=== PATIENT | female | born 1955 | race Caucasian/White ===

== ENCOUNTER → 2016-11-19 | Outpatient (CLI) | payer OTHER ==
[2016-11-19 08:52] LABS: Basophils % (A) 1 %; CH 31.8; CHCM 33.5; Eosinophils # (A) 0.3 k/uL (0-0.7); Eosinophils % (A) 5 %; HCT 42.1 % (34.0-46.0); HDW 2.38; HGB 14.7 gm/dL (11.4-16.0); Luc # (Auto) 0.15; Luc % (Auto) 2; Lymphocytes # (A) 2.7 k/uL (1.0-4.8); Lymphocytes % (A) 39 %; MCH 33.4 pg (25.0-35.0); MCV 95.3 fL (80.0-100.0); Mean Platelet Volume 8.9; Monocytes # (A) 0.5 k/uL (0-1.0); Monocytes % (A) 7 %; Neutrophils # (A) 3.3 k/uL (1.3-7.7); Neutrophils % (A) 47 %; RBC 4.41 m/uL (3.80-5.40); WBC (Perox) 6.92
[2016-11-19 09:02] LABS: INR 0.9 (<1.1); Partial Thromboplastin Time 22.7 sec (22.0-30.0); Prothrombin Time 9.5 sec (9.0-12.0)
[2016-11-19 09:12] LABS: ALT 28 U/L (9-52); AST 24 U/L (14-36); Alkaline Phosphatase 87 U/L (38-126); Anion Gap 9 mmol/L; Blood Urea Nitrogen 11 mg/dL (7-17); Calcium 9.4 mg/dL (8.4-10.2); Carbon Dioxide 26 mmol/L (22-30); Chloride 108 mmol/L (98-107); Cholesterol 226 mg/dL (<200); Creatine Kinase 85 U/L (30-135); Glucose 94 mg/dL (74-99); HDL Cholesterol 69 mg/dL (40-60); Non-African American GFR(MDRD) 60 (>60 ml/min/1.73 sqM); Potassium 4.7 mmol/L (3.5-5.1); Sodium 143 mmol/L (137-145); Total Bilirubin 0.9 mg/dL (0.2-1.3); Triglycerides 146 mg/dL (<150)
[2016-11-19 09:59] LABS: Hepatitis C Virus IgG Ab Negative (Negative); Hepatitis C Virus IgG Index 0.01
[2016-11-19 10:24] LABS: Erythrocyte Sedimentation Rate 8 mm/hr (0-20)
[2016-11-19 11:24] LABS: C Reactive Protein 11.7 mg/L (<10.0)
[2016-11-19 12:46] LABS: Hemoglobin A1C 5.5 % (4.2-6.1)
--- NOTE | 2016-11-23 07:30 | MM ---
Reason for exam: screening (asymptomatic). Last mammogram was performed 6 years ago. History: Patient is postmenopausal. Family history of breast cancer in grandmother. Took hormonal contraceptives for 6 years. Physical Findings: A clinical breast exam by your physician is recommended on an annual basis and results should be correlated with mammographic findings. MG Screening Mammo w CAD Bilateral CC and MLO view(s) were taken. Prior study comparison: November 28, 2010, bilateral digital screening mammo w/CAD. February 08, 2009, bilateral digital screening mammogram. The breast tissue is heterogeneously dense. This may lower the sensitivity of mammography. Asymmetric density in the right breast just lateral to the retroareolar plane appears more defined. ASSESSMENT: Incomplete: need additional imaging evaluation, BI-RAD 0 RECOMMENDATION: Special view mammogram of the right breast. If lesion persists on supplemental views, image directed ultrasound is recommended. [facility] will attempt to contact patient to return for supplemental views and ultrasound if indicated.
== END | disposition home or self-care (01) ==
LOC: RADMAMWWP 08:30
PROVIDERS: ATTEND Internal Medicine
DX: Z12.31 Encounter for screening mammogram for malignant neoplasm of breast (principal); Z00.00 Encounter for general adult medical examination without abnormal findings; R92.2 Inconclusive mammogram; D64.9 Anemia, unspecified; E11.9 Type 2 diabetes mellitus without complications; E78.5 Hyperlipidemia, unspecified; I10 Essential (primary) hypertension; D68.9 Coagulation defect, unspecified
CPT/HCPCS: 86803; 85379; 84439; 80061; 80053; 85652; 83036; 82550; 84443; 85025; 85610; 85730; 86140; 82306; G0202

== ENCOUNTER → 2016-12-02 | Outpatient (CLI) | payer OTHER ==
--- NOTE | 2016-12-02 09:59 | MM ---
Reason for exam: additional evaluation requested from abnormal screening. Last mammogram was performed less than 1 month ago. History: Patient is postmenopausal. Family history of breast cancer in maternal grandmother at age 68. Took hormonal contraceptives for 6 years beginning at age 19. Physical Findings: Nurse did not find any significant physical abnormalities on exam. MG Work Up Mamm w CAD RT LM, CC, CCRL, and spot compression CC view(s) were taken of the right breast. Prior study comparison: November 19, 2016, bilateral MG screening mammo w CAD. November 28, 2010, bilateral digital screening mammo w/CAD. There is no discrete abnormality including area of concern. These results were verbally communicated with the patient and result sheet given to the patient on 12/02/16. ASSESSMENT: Negative, BI-RAD 1 RECOMMENDATION: Return to routine screening mammogram schedule for both breasts.
== END | disposition home or self-care (01) ==
LOC: RADMAMWWP 08:53
PROVIDERS: ATTEND Internal Medicine
DX: R92.8 Other abnormal and inconclusive findings on diagnostic imaging of breast (principal)

== ENCOUNTER → 2016-12-10 | Outpatient (CLI) | payer OTHER ==
--- NOTE | 2016-12-10 10:29 | US ---
EXAMINATION TYPE: US carotid duplex BILAT DATE OF EXAM: 12/10/2016 COMPARISON: NONE CLINICAL HISTORY: I65.2 STENOSIS OF CAROTID ARTERY. bruit EXAM MEASUREMENTS: RIGHT: Peak Systolic Velocity (PSV) cm/sec ----- Right CCA: 105.5 ----- Right ICA: 84.6 ----- Right ECA: 137.8 ICA/CCA ratio: 0.8 RIGHT: End Diastole cm/sec ----- Right CCA: 27.0 ----- Right ICA: 17.7 ----- Right ECA: 17.5 LEFT: Peak Systolic Velocity (PSV) cm/sec ----- Left CCA: 75.2 ----- Left ICA: 93.1 ----- Left ECA: 61.6 ICA/CCA ratio: 1.2 LEFT: End Diastole cm/sec ----- Left CCA: 15.7 ----- Left ICA: 21.9 ----- Left ECA: 0.0 VERTEBRALS (direction of flow): Right Vertebral: Antegrade Left Vertebral: Antegrade 1. Bilateral wall thickening. 2. No elevated velocities in either ICA. 3. No significant stenosis. IMPRESSION: Minimal atheromatous plaquing of the bilateral carotid bulbs and common carotid arteries with no evidence of hemodynamically significant stenosis.
== END | disposition home or self-care (01) ==
LOC: RADUSWWP 09:22
PROVIDERS: ATTEND Internal Medicine
DX: I65.23 Occlusion and stenosis of bilateral carotid arteries (principal); Z88.6 Allergy status to analgesic agent
CPT/HCPCS: 93880

== ENCOUNTER → 2017-05-20 | Outpatient (CLI) | payer BC, OTHER ==
[2017-05-20 12:45] LABS: ALT 34 U/L (9-52); AST 21 U/L (14-36); Cholesterol 170 mg/dL (<200); Creatine Kinase 78 U/L (30-135); HDL Cholesterol 72 mg/dL (40-60); LDL Cholesterol,Calculated 80 mg/dL (0-99); Triglycerides 90 mg/dL (<150)
== END | disposition home or self-care (01) ==
LOC: LABWHC1 11:51
PROVIDERS: ATTEND Internal Medicine
DX: E78.5 Hyperlipidemia, unspecified (principal); T50.905A Adverse effect of unspecified drugs, medicaments and biological substances, initial encounter
CPT/HCPCS: 36415; 80061; 82550; 84450; 84460; 85652

== ENCOUNTER → 2017-11-25 | Outpatient (CLI) | payer BC ==
[2017-11-25 10:43] LABS: Basophils % (A) 1 %; Eosinophils # (A) 0.3 k/uL (0-0.7); Eosinophils % (A) 6 %; HCT 41.1 % (34.0-46.0); HGB 13.6 gm/dL (11.4-16.0); Lymphocytes # (A) 1.9 k/uL (1.0-4.8); Lymphocytes % (A) 34 %; MCH 32.2 pg (25.0-35.0); MCHC 33.2 g/dL (31.0-37.0); MCV 96.9 fL (80.0-100.0); Mean Platelet Volume 7.4; Monocytes # (A) 0.4 k/uL (0-1.0); Monocytes % (A) 7 %; Neutrophils # (A) 2.9 k/uL (1.3-7.7); Neutrophils % (A) 51 %; Platelet Count 221 k/uL (150-450); RBC 4.24 m/uL (3.80-5.40); RDW 13.2 % (11.5-15.5); WBC 5.6 k/uL (3.8-10.6)
[2017-11-25 11:03] LABS: ALT 33 U/L (9-52); AST 22 U/L (14-36); Albumin 4.1 g/dL (3.5-5.0); Alkaline Phosphatase 87 U/L (38-126); Anion Gap 5 mmol/L; Blood Urea Nitrogen 11 mg/dL (7-17); C Reactive Protein 8.3 mg/L (<10.0); Calcium 9.3 mg/dL (8.4-10.2); Carbon Dioxide 28 mmol/L (22-30); Chloride 107 mmol/L (98-107); Cholesterol 154 mg/dL (<200); Creatine Kinase 83 U/L (30-135); Glucose 96 mg/dL (74-99); HDL Cholesterol 63 mg/dL (40-60); LDL Cholesterol,Calculated 67 mg/dL (0-99); Potassium 4.7 mmol/L (3.5-5.1); Sodium 140 mmol/L (137-145); Total Bilirubin 0.6 mg/dL (0.2-1.3); Total Protein 6.3 g/dL (6.3-8.2); Triglycerides 119 mg/dL (<150)
[2017-11-25 11:15] LABS: T4, Free (Free Thyroxine) 1.06 ng/dL (0.78-2.19)
[2017-11-25 14:10] LABS: Erythrocyte Sedimentation Rate 8 mm/hr (0-20)
[2017-11-25 17:22] LABS: Hemoglobin A1C 5.4 % (4.0-6.0)
== END | disposition home or self-care (01) ==
LOC: LABWHC1 10:19
PROVIDERS: ATTEND Internal Medicine
DX: E78.5 Hyperlipidemia, unspecified (principal); I10 Essential (primary) hypertension; E03.9 Hypothyroidism, unspecified; E66.9 Obesity, unspecified; E87.8 Other disorders of electrolyte and fluid balance, not elsewhere classified; E55.9 Vitamin D deficiency, unspecified; R73.9 Hyperglycemia, unspecified
CPT/HCPCS: 36415; 80053; 80061; 82306; 82550; 83036; 84439; 84443; 85025; 85652; 86140

== ENCOUNTER → 2018-01-25 | Outpatient (CLI) | payer BC ==
--- NOTE | 2018-01-26 15:20 | ECHOF ---
Referral Reason:I25.2 Old myocardial infarct MEASUREMENTS -------- HEIGHT: 175.3 cm WEIGHT: 108.9 kg BP: RVIDd: 3.0 cm (< 3.3) IVSd: 1.1 cm (0.6 - 1.1) LVIDd: 3.9 cm (3.9 - 5.3) LVPWd: 1.0 cm (0.6 - 1.1) IVSs: 1.3 cm LVIDs: 2.3 cm LVPWs: 1.3 cm LAESV Index (A-L): 25.15 ml/m Ao Diam: 3.5 cm (2.0 - 3.7) AV Cusp: 2.2 cm (1.5 - 2.6) LA Diam: 3.4 cm (2.7 - 3.8) MV EXCURSION: 22.560 mm (> 18.000) MV EF SLOPE: 88 mm/s (70 - 150) EPSS: 0.5 cm MV E Saji: 0.99 m/s MV DecT: 193 ms MV A Saji: 0.81 m/s MV E/A Ratio: 1.23 RAP: 5.00 mmHg RVSP: 31.05 mmHg FINDINGS -------- Sinus rhythm. This was a technically adequate study. The left ventricular size is normal. There is borderline concentric left ventricular hypertrophy. Overall left ventricular systolic function is normal with, an EF between 55 - 60 %. The right ventricle is normal in size and function. Normal LA size by volume 22+/-6 ml/m2. RA appears enlarged. Aortic valve is trileaflet and is mildly thickened. Trace amount of aortic regurgitation. There is no evidence of aortic stenosis. The mitral valve leaflets are mildly thickened. There is trace to mild mitral regurgitation. Trace tricuspid regurgitation present. Right ventricular systolic pressure is normal at < 35 mmHg. There is no evidence of pulmonary hypertension. The pulmonic valve was not well visualized. The aortic root size is normal. Normal inferior vena cava with normal inspiratory collapse consistent with estimated right atrial pre ssure of 5 mmHg. There is no pericardial effusion. CONCLUSIONS -------- 1. Sinus rhythm. 2. This was a technically adequate study. 3. The left ventricular size is normal. 4. There is borderline concentric left ventricular hypertrophy. 5. Overall left ventricular systolic function is normal with, an EF between 55 - 60 %. 6. Normal LA size by volume 22+/-6 ml/m2. 7. RA appears enlarged. 8. Aortic valve is trileaflet and is mildly thickened. 9. Trace amount of aortic regurgitation. 10. The mitral valve leaflets are mildly thickened. 11. There is trace to mild mitral regurgitation. 12. Trace tricuspid regurgitation present. 13. Right ventricular systolic pressure is normal at < 35 mmHg. 14. There is no evidence of pulmonary hypertension. 15. The pulmonic valve was not well visualized. 16. The aortic root size is normal. 17. There is no pericardial effusion. COUNTY SURVEYOR: Sami Calderon RDCS
== END ==
LOC: RADECHMAIN 12:38
PROVIDERS: ATTEND Internal Medicine
DX: I51.7 Cardiomegaly (principal); I34.8 Other nonrheumatic mitral valve disorders; I35.8 Other nonrheumatic aortic valve disorders; I34.0 Nonrheumatic mitral (valve) insufficiency
CPT/HCPCS: 93306

== ENCOUNTER → 2019-06-09 | Outpatient (CLI) | payer BC ==
--- NOTE | 2019-06-09 09:42 | CT ---
EXAMINATION TYPE: CT soft tissue neck w con DATE OF EXAM: 06/09/2019 COMPARISON: None HISTORY: Right anterior neck mass CT DLP: 531 mGycm CONTRAST: CT scan of the neck is performed with IV Contrast, patient injected with 100 mL of Isovue 300. Contrast enhanced CT of the neck was performed from the skull base through the lung apices. Markers p laced over the right neck at the site of clinical concern. At the site of clinical concern there is no evidence for solid or cystic mass. AIRWAY: The supraglottic, glottic, and subglottic portions of the airway appear patent and free of mass. SALIVARY GLANDS: The submandibular and parotid glands are free of mass or inflammatory process. THYROID GLAND: No nodules or masses seen. LYMPH NODES: No adenopathy seen greater than 1cm. LUNG APICES: No nodule or mass is seen. OTHER: Vascular structures are patent. No significant degenerative change of the cervical spine. N o abscess seen. IMPRESSION: No distinct abnormality appreciated.
== END | disposition home or self-care (01) ==
LOC: RADCTMAIN 08:52
PROVIDERS: ATTEND Otolaryngology
DX: R68.89 Other general symptoms and signs (principal)
CPT/HCPCS: 70491; Q9967

== ENCOUNTER 2019-07-20 04:54 | Emergency (ER) | payer BC ==
[2019-07-20 05:09] VITALS: TEMP 98
--- NOTE | 2019-07-20 05:30 | ED ---
Fall HPI - General Chief Complaint: Fall Stated Complaint: Back pain Time Seen by Provider: 07/20/19 05:18 Source: patient Mode of arrival: ambulatory - History of Present Illness MD Complaint: fall Onset/Timin -: hour(s) Fall From: down stairs (#) (3) Place Fall Occurred: home Loss of Consciousness: none Prolonged Down Time?: no Symptoms Prior to Fall: none Location: back Severity: moderate Quality: sharp Context: tripped/slipped Associated Symptoms: denies - Related Data Previous Rx's Medication Instructions Recorded Hydrocodone/Acetaminophen [[place] 1 each PO Q6HR PRN #20 tab 07/20/19 5-325] Ibuprofen 800 mg PO TID #20 tablet 07/20/19 Allergies Allergy/AdvReac Type Severity Reaction Status Date / Time fentanyl AdvReac Vomiting Verified 07/20/19 05:09 Review of Systems ROS Statement: Those systems with pertinent positive or pertinent negative responses have been documented in the HPI. ROS Other: All systems not noted in ROS Statement are negative. Constitutional: Denies: fever, chills Respiratory: Denies: cough, dyspnea Cardiovascular: Denies: chest pain, palpitations, edema, syncope Gastrointestinal: Denies: abdominal pain, nausea, vomiting Genitourinary: Denies: dysuria, hematuria Musculoskeletal: Reports: as per HPI, back pain Neurological: Denies: headache, weakness, numbness, paresthesias Hematological/Lymphatic: Denies: easy bleeding Past Medical History Past Medical History: Hypertension Additional Past Medical History / Comment(s): ectopic History of Any Multi-Drug Resistant Organisms: None Reported Past Surgical History: Cholecystectomy, Orthopedic Surgery Additional Past Surgical History / Comment(s): eye surgery Past Psychological History: No Psychological Hx Reported Smoking Status: Never smoker Past Alcohol Use History: None Reported Past Drug Use History: None Reported General Exam General appearance: alert, in no apparent distress Head exam: Present: atraumatic, normocephalic Eye exam: Present: normal appearance Neck exam: Present: full ROM. Absent: tenderness, meningismus Respiratory exam: Present: normal lung sounds bilaterally, chest wall tenderness. Absent: respiratory distress, wheezes, rales, rhonchi, stridor, accessory muscle use Cardiovascular Exam: Present: regular rate, normal rhythm, normal heart sounds. Absent: systolic murmur, diastolic murmur, rubs, gallop GI/Abdominal exam: Present: soft. Absent: distended, tenderness, guarding, rebound, mass Extremities exam: Present: normal inspection, normal capillary refill. Absent: pedal edema, calf tenderness Back exam: Present: normal inspection, paraspinal tenderness. Absent: CVA tenderness (R), CVA tenderness (L), vertebral tenderness Neurological exam: Present: alert, normal gait Skin exam: Present: warm, dry, intact, normal color. Absent: rash Course Vital Signs 07/20/19 07/20/19 05:04 07:46 Temperature 98 F Pulse Rate 75 62 Respiratory 18 17 Rate Blood Pressure 151/92 143/90 O2 Sat by Pulse 98 98 Oximetry Medical Decision Making - Lab Data Lab Results 07/20/19 Range/Units 05:44 Urine Color Yellow Urine Appearance Clear (Clear) Urine pH 5.5 (5.0-8.0) Ur Specific [place] 1.024 (1.001-1.035) Urine Protein Trace H (Negative) Urine Glucose (UA) Negative (Negative) Urine Ketones Negative (Negative) Urine Blood Negative (Negative) Urine Nitrite Negative (Negative) Urine Bilirubin Negative (Negative) Urine Urobilinogen 2.0 (<2.0) mg/dL Ur Leukocyte Esterase Small H (Negative) Urine RBC 1 (0-5) /hpf Urine WBC 4 (0-5) /hpf Ur Squamous Epith Cells 2 (0-4) /hpf Hyaline Casts 6 H (0-2) /lpf Urine Mucus Moderate H (None) /hpf Disposition Clinical Impression: Fall, Rib fractures Disposition: HOME SELF-CARE Condition: Good Instructions (If sedation given, give patient instructions): Rib Fracture (ED), Fall Prevention for Older Adults (ED) Prescriptions: Ibuprofen 800 mg PO TID #20 tablet Hydrocodone/Acetaminophen [[place] 5-325] 1 each PO Q6HR PRN #20 tab PRN Reason: Pain Is patient prescribed a controlled substance at d/c from ED?: No Referrals: Trav Stern MD [Primary Care Provider] - 1-2 days
[2019-07-20 05:51] LABS: Appearance,Urine Clear (Clear); Bilirubin,Urine Negative (Negative); Blood,Urine Negative (Negative); Color,Urine Yellow; Glucose,Urine (UA) Negative (Negative); Hyaline Casts,Urine 6 /lpf (0-2); Ketones,Urine Negative (Negative); Leukocyte Esterase,Urine Small (Negative); Mucus,Urine Moderate /hpf; Nitrite,Urine Negative (Negative); PH, Urine 5.5 (5.0-8.0); Protein,Urine Trace (Negative); RBC,Urine 1 /hpf (0-5); Specific Gravity,Urine 1.024 (1.001-1.035); Squamous Epithelial Cell,Urine 2 /hpf (0-4); WBC,Urine 4 /hpf (0-5)
--- NOTE | 2019-07-20 07:15 | XR ---
EXAMINATION TYPE: XR ribs LT w pa chest xray DATE OF EXAM: 07/20/2019 CLINICAL HISTORY: Fall with left rib pain TECHNIQUE: Single frontal view of the chest is obtained. 2 views of the left ribs were also obtained COMPARISON: None FINDINGS: Linear platelike atelectasis is seen in both lower lungs. Cardiomediastinal silhouette is e nlarged with tortuosity of the descending thoracic aorta. No sizable pneumothorax or pleural effusion seen. No focal consolidation. There are acute, nondisplaced, noncomminuted fractures of the posterio r lateral margins of ribs 5 and 6 on the left that are subtly seen. IMPRESSION: Acute noncomminuted nondisplaced fractures of the posterior lateral margins of ribs 5 and 6 on the left and bibasilar atelectasis.
[2019-07-20 07:47] VITALS: BP 143/90; PULSE 62; RESP 17
== END 2019-07-20 08:23 | disposition home or self-care (01) ==
LOC: EC 04:54
DX: S22.42XA Multiple fractures of ribs, left side, initial encounter for closed fracture (principal); I10 Essential (primary) hypertension; Z88.5 Allergy status to narcotic agent; W10.9XXA Fall (on) (from) unspecified stairs and steps, initial encounter; Y92.009 Unspecified place in unspecified non-institutional (private) residence as the place of occurrence of the external cause
CPT/HCPCS: 81001; 99283

== ENCOUNTER → 2019-11-17 | Outpatient (CLI) | payer MEDICARE, BC ==
--- NOTE | 2019-11-17 11:16 | XR ---
EXAMINATION TYPE: XR Hip Complete LT DATE OF EXAM: 11/17/2019 CLINICAL HISTORY: pain TECHNIQUE: AP and frogleg views of the left hip are obtained. COMPARISON: None. FINDINGS: There is no acute fracture/dislocation evident. The joint space appears within normal li mits. The overlying soft tissue appears unremarkable. IMPRESSION: 1. There is no acute fracture or dislocation.ICD 10 NO FRACTURE, INITIAL EVALUATION
--- NOTE | 2019-11-17 11:18 | XR ---
EXAMINATION TYPE: XR sacroiliac joint comp BILAT DATE OF EXAM: 11/17/2019 COMPARISON: NONE HISTORY: M81.0 Osteoarthritis TECHNIQUE: 3 views SI joints FINDINGS: There are mild vacuum changes noted of the bilateral sacroiliac joints. No evidence for fra cture. No erosive changes seen. IMPRESSION: Bilateral osteoarthritis.
== END | disposition home or self-care (01) ==
LOC: RADXRMAIN 10:47
PROVIDERS: ATTEND Internal Medicine
DX: M47.898 Other spondylosis, sacral and sacrococcygeal region (principal)
CPT/HCPCS: 72202; 73502; 85652

== ENCOUNTER → 2019-11-27 | Outpatient (CLI) | payer MEDICARE, BC ==
--- NOTE | 2019-11-27 11:35 | FL ---
EXAMINATION TYPE: FL barium swallow w video DATE OF EXAM: 11/27/2019 CLINICAL HISTORY: 64-year-old female R13.10, unspecified dysphagia, palpable area along the right latanya e of the neck. TECHNIQUE: Deglutition study is performed utilizing thin liquid barium, honey barium thick pudding, and barium coated cracker. COMPARISON: Correlation CT neck 06/09/2019. Total fluoroscopy time: 39 seconds. Total images: None. Real-time fluoroscopy support was provided to speech pathology. FINDINGS: The oral and pharyngeal phases show satisfactory initiation and propagation with all modalities teste d. Normal mastication is seen with solid modalities tested. There is a single episode of minimal tr ansient penetration with solid consistency. No evidence of any other penetration or aspiration with a ny modality tested. No significant pharyngeal residue was appreciated. IMPRESSION: Single episode of minimal transient penetration with solid consistency. No other penetration or aspir ation seen. The patient's 06/09/2019 CT is reviewed. No discrete abnormality is identified. The palpable area can be followed clinically. If any enlargement is noted, targeted ultrasound or repeat CT scan can be per formed. Please refer to speech therapist notes for further details if necessary.
== END | disposition home or self-care (01) ==
LOC: RADFLMAIN 10:43
PROVIDERS: ATTEND Internal Medicine
DX: R13.10 Dysphagia, unspecified (principal); Z88.6 Allergy status to analgesic agent
CPT/HCPCS: 74230

== ENCOUNTER → 2019-12-05 | Outpatient (CLI) | payer MEDICARE, BC ==
--- NOTE | 2019-12-07 15:59 | US ---
EXAMINATION TYPE: US thyroid st tissue head/neck DATE OF EXAM: 12/05/2019 COMPARISON: NONE CLINICAL HISTORY: R22.1 Localized swelling, mass and lump, neck. GLAND SIZE: The right lobe of the gland measures approximately 1.5 x 5.3 x 1.7 cm, there is a hypoechoic well-def ined nodule measuring only 5 mm. The left lobe of the gland measures 1.4 x 5 x 1.6 cm. Hypoechoic nod ules well-defined at the lower pole measuring 9 mm x 5 mm. At the site of patient's palpable lump in the right neck, there may be a small lymph node present. Bilateral neck scanned, no evidence of lymphadenopathy. IMPRESSION: Small subcentimeter thyroid nodules. No sizable lesion at the site of patient's palpable mass.
== END | disposition home or self-care (01) ==
LOC: RADUSWWP 09:26
PROVIDERS: ATTEND Internal Medicine
DX: E04.2 Nontoxic multinodular goiter (principal); Z88.6 Allergy status to analgesic agent
CPT/HCPCS: 76536

== ENCOUNTER → 2020-07-05 | Outpatient (CLI) | payer MEDICARE ==
[2020-07-06 00:59] LABS: Basophils # (A) 0.04 X 10*3/uL (0.00-0.10); Basophils % (A) 0.5 %; Eosinophils # (A) 0.37 X 10*3/uL (0.04-0.35); Eosinophils % (A) 4.3 %; HCT 43.6 % (37.2-46.3); HGB 14.2 g/dL (12.0-15.0); Lymphocytes % (A) 26.7 %; MCH 31.8 pg (27.0-32.0); MCHC 32.6 g/dL (32.0-37.0); MCV 97.8 fL (80.0-97.0); Mean Platelet Volume 11.5 fL (9.5-12.2); Monocytes # (A) 0.61 X 10*3/uL (0.20-1.00); Monocytes % (A) 7.1 %; Neutrophils # (A) 5.26 X 10*3/uL (1.80-7.70); Neutrophils % (A) 61.2 %; Platelet Count 279 X 10*3/uL (140-440); RBC 4.46 X 10*6/uL (4.10-5.20); RDW 12.8 % (11.5-14.5)
[2020-07-06 02:11] LABS: Erythrocyte Sedimentation Rate 6 mm/Hr (0-30)
[2020-07-06 02:38] LABS: ALT 25 U/L (8-44); AST 22 U/L (13-35); African American GFR (CKD) 68.5 (60.0-200.0); Albumin/Globulin Ratio 1.56 (1.60-3.17); Alkaline Phosphatase 111 U/L (41-126); C Reactive Protein <0.4 mg/dL (0.0-0.8); Calcium 9.8 mg/dL (8.7-10.3); Carbon Dioxide 22.9 mmol/L (21.6-31.8); Chloride 108 mmol/L (96-109); Chol/HDL Ratio 2.61; Cholesterol 149 mg/dL (0-200); Creatine Kinase 91 U/L (26-186); Globulin 2.7 g/dL (1.6-3.3); Glucose 91 mg/dL (70-110); LDL Cholesterol,Calculated 63.8 mg/dL (0.0-131.0); Non-African American GFR(CKD) 59.1 (60.0-200.0); Sodium 141 mmol/L (135-145); Total Bilirubin 0.6 mg/dL (0.3-1.2); Total Protein 6.9 g/dL (6.2-8.2)
== END | disposition home or self-care (01) ==
LOC: LABWHC1 12:19
PROVIDERS: ATTEND Internal Medicine
DX: D64.9 Anemia, unspecified (principal); I10 Essential (primary) hypertension; E78.5 Hyperlipidemia, unspecified; E66.9 Obesity, unspecified
CPT/HCPCS: 36415; 80053; 80061; 82550; 84443; 85025; 85652; 86140

== ENCOUNTER → 2020-07-17 | Outpatient (CLI) | payer MEDICARE ==
--- NOTE | 2020-07-19 11:43 | MM ---
Reason for exam: screening (asymptomatic). Last mammogram was performed 2 years and 6 months ago. History: Patient is postmenopausal. Family history of breast cancer in maternal grandmother at age 68. Took hormonal contraceptives for 6 years beginning at age 19. Physical Findings: A clinical breast exam by your physician is recommended on an annual basis and results should be correlated with mammographic findings. MG 3D Screening Mammo W/Cad Bilateral CC and MLO view(s) were taken. Prior study comparison: January 13, 2018, bilateral MG 3d screening mammo w/cad. December 02, 2016, right breast MG work up mamm w CAD RT. The breast tissue is heterogeneously dense. This may lower the sensitivity of mammography. No significant changes when compared with prior studies. ASSESSMENT: Negative, BI-RAD 1 RECOMMENDATION: Routine screening mammogram of both breasts in 1 year.
== END | disposition home or self-care (01) ==
LOC: RADMAMWWP 14:18
PROVIDERS: ATTEND Internal Medicine
DX: Z12.31 Encounter for screening mammogram for malignant neoplasm of breast (principal)
CPT/HCPCS: 77063; 77067

== ENCOUNTER → 2020-07-19 | Outpatient (CLI) | payer MEDICARE ==
--- NOTE | 2020-07-19 12:39 | US ---
EXAMINATION TYPE: US kidneys/renal and bladder DATE OF EXAM: 07/19/2020 COMPARISON: NONE CLINICAL HISTORY: 64-year-old female N18.3 Chronic kidney disease, stage III,N20.0. Left flank pain TECHNIQUE: Multiple sonographic images of the kidneys and bladder are obtained. FINDINGS: EXAM MEASUREMENTS: Right Kidney: 10.8 x 4.7 x 3.9 cm Left Kidney: 9.9 x 4.6 x 5.7 cm No hydronephrosis on either side. Bladder: Under distention limits its evaluation. Bilateral Jets seen IMPRESSION: No hydronephrosis.
== END | disposition home or self-care (01) ==
LOC: RADUSWWP 10:35
PROVIDERS: ATTEND Internal Medicine
DX: N20.0 Calculus of kidney (principal); N18.30 Chronic kidney disease, stage 3 unspecified; Z88.6 Allergy status to analgesic agent
CPT/HCPCS: 76770

== ENCOUNTER → 2021-03-12 | Outpatient (CLI) | payer MEDICARE ==
--- NOTE | 2021-03-12 12:53 | CONS ---
CONSULTATION DATE OF SERVICE: 03/12/2021 This 65-year-old lady has been evaluated in [facility] for possible obstructive sleep apnea-hypopnea syndrome. HISTORY OF PRESENT ILLNESS/SLEEP-WAKE EVALUATION: Patient's usual sleep schedule is from 10 p.m. until 7 a.m. She snores and wakes up from sleep with episodes of gasping for air, dry mouth, palpitations and restless legs. In total, the patient wakes up from sleep 3 times with 3 episodes of nocturia and sometimes has difficulties initiating sleep again. In the morning the patient wakes up tired. Usually does not take naps. [place] Sleepiness Scale is 4, which is in normal range. No history of hypnagogic hallucinations, sleep paralysis or cataplexy. PAST MEDICAL HISTORY: Positive for episodes of paroxysmal atrial fibrillation, hyperlipidemia, arthritis, sinus problems, acid reflux. PAST SURGICAL HISTORY: Cholecystectomy, right knee arthroscopic surgery. MEDICATIONS: 1. Eliquis 5 mg twice a day. 2. Atorvastatin 10 mg once a day. SOCIAL HISTORY: Negative for smoking or using alcohol. FAMILY HISTORY: Stroke, cancer, thyroid problems. REVIEW OF SYSTEMS: No fevers. No double vision. No recent chest pain. No shortness of breath. No abdominal pain. No bleeding episodes. No blood in the urine. No seizure episodes. Multiple awakenings from sleep with episodes of gasping for air. PHYSICAL EXAMINATION: GENERAL: Pleasant lady without distress. VITAL SIGNS: BP 140/79, HR 65, RR 16, height 5 feet 6-3/4 inches, weight 251.6 pounds, body mass index 39.6, temperature 97.4, oxygen saturation at room air 96%. HEENT: PERRLA, EOMI, evaluation of oropharynx showed tongue protrudes midline. Extremely low position of soft palate; Mallampati IV. NECK: Supple, no JVD. Thyroid is not palpable. Neck is wide; 16-3/4 inches in circumference. LUNGS: Clear to percussion and to auscultation. Good air exchange. No wheezing or rhonchi. HEART: S1, S2 regular. No murmurs, gallops, or rubs. ABDOMEN: Slightly obese. EXTREMITIES: No clubbing or cyanosis. PACKER: Awake, alert, and oriented X3. Cranial nerves 2 to 7 intact. There is no fasciculation or atrophy. noted. No focal deficits observed. IMPRESSION: 1. Snoring, multiple awakenings from sleep with gasping for air and nocturia, extremely low position of soft palate, Mallampati IV, wide neck at 16-3/4 inches in circumference, episodes of sleepiness; obstructive sleep apnea-hypopnea syndrome. 2. History of paroxysmal atrial fibrillation. 3. Obesity. BMI 39.6. 4. History of restless leg symptoms. 5. Hyperlipidemia. 6. Arthritis. 7. History of sinus problems. 8. Acid reflux. 9. Status post cholecystectomy. 10.Status post right knee arthroscopic surgery. 11.Status post rotator cuff surgery. 12.Status post . PLAN: 1. Home sleep apnea test to check patient's breathing during sleep. 2. CPAP/BiPAP titration if sleep study confirms obstructive sleep apnea-hypopnea syndrome. 3. Preferable position during sleep on the side. 4. No driving if patient feels any sleepiness. 5. I will see patient for follow up visit to explain results of testing and following plan. Thank you very much for referring this patient for consultation. Sincerely, Rafa Mann MD, PhD, FAASM Diplomat of [employer] Sleep Medicine Board of [place] [facility] [place] MMODL / IJN: [id number] /
== END ==
LOC: SLEEP 10:16
PROVIDERS: ATTEND Internal Medicine
DX: G47.33 Obstructive sleep apnea (adult) (pediatric) (principal); R35.1 Nocturia; E66.9 Obesity, unspecified; E78.5 Hyperlipidemia, unspecified; G25.81 Restless legs syndrome; I48.0 Paroxysmal atrial fibrillation; K21.9 Gastro-esophageal reflux disease without esophagitis; M19.90 Unspecified osteoarthritis, unspecified site; Z68.39 Body mass index [BMI] 39.0-39.9, adult; Z90.49 Acquired absence of other specified parts of digestive tract; Z87.59 Personal history of other complications of pregnancy, childbirth and the puerperium; Z98.890 Other specified postprocedural states; Z87.09 Personal history of other diseases of the respiratory system; Z79.01 Long term (current) use of anticoagulants; Z88.6 Allergy status to analgesic agent
CPT/HCPCS: 99211

== ENCOUNTER 2021-04-08 09:57 | Day surgery (SDC) | payer MEDICARE ==
[2021-04-01 12:05] VITALS: BMI 36.9
[~2021-04-08 09:57] MED LIST: LACTATED RINGERS 1,000 ML IV SCH; SODIUM CHLORIDE 0.9% 1,000 ML IV SCH
[2021-04-08 10:38] LABS: Basophils # (A) 0.1 k/uL (0-0.2); Basophils % (A) 1 %; Eosinophils # (A) 0.3 k/uL (0-0.7); Eosinophils % (A) 3 %; HCT 45.7 % (34.0-46.0); HGB 15.3 gm/dL (11.4-16.0); Lymphocytes # (A) 2.5 k/uL (1.0-4.8); Lymphocytes % (A) 26 %; MCH 32.6 pg (25.0-35.0); MCHC 33.4 g/dL (31.0-37.0); MCV 97.7 fL (80.0-100.0); Mean Platelet Volume 8.2; Monocytes # (A) 0.6 k/uL (0-1.0); Monocytes % (A) 6 %; Neutrophils # (A) 5.8 k/uL (1.3-7.7); Neutrophils % (A) 62 %; Platelet Count 292 k/uL (150-450); RBC 4.68 m/uL (3.80-5.40); RDW 12.9 % (11.5-15.5); WBC 9.3 k/uL (3.8-10.6)
[2021-04-08 10:47] LABS: Calcium 9.5 mg/dL (8.4-10.2)
[2021-04-08] MEDS ORDERED: ePHEDrine 50 MG/ML 1 ML AMP ONE (11:53)
[2021-04-08] MEDS ORDERED: PROPOFOL 10 MG/ML 20 ML VIAL IV ONE (11:53)
[2021-04-08] MEDS ORDERED: PHENYLEPHRINE-0.9% NACL SYG 1,000 MCG/10 ML SYRINGE ONE (11:53)
[2021-04-08] MEDS ORDERED: ONDANSETRON 4 MG/2 ML VIAL ONE (11:53)
[2021-04-08] MEDS ORDERED: HYDROmorphone (PF) 1 MG/ML ONE (11:53)
[2021-04-08] MEDS ORDERED: MIDAZOLAM 2 MG/2 ML VIAL ONE (11:53)
[2021-04-08] MEDS ORDERED: PROTAMINE SULFATE 10 MG/ML 5 ML VIAL IV ONE (11:53)
[2021-04-08] MEDS ORDERED: HEPARIN SODIUM,PORCINE 10,000 UNIT/ML 1 ML VIAL ONE (11:53)
[2021-04-08] MEDS ORDERED: SUCCINYLCHOLINE CHLORIDE 100 MG/5 ML SYR IV ONE (11:53)
[2021-04-08] MEDS ORDERED: ISOPROTERENOL 250 MCG/1.25 ML SYR IV ONE (11:53)
[2021-04-08] MEDS ORDERED: LIDOCAINE 1% INJ 10MG/ML (20 ML MDV) ONE (12:08)
[2021-04-08] MEDS ORDERED: LIDOCAINE 1% INJ 10MG/ML (20 ML MDV) SQ ONE (12:42)
[2021-04-08] MEDS ORDERED: HEPARIN SOD,PORK IN 0.45% NACL 25,000 UNIT in 0.45% NACL 1 250ML.BAG IV ONE (13:00)
[2021-04-08] MEDS ORDERED: IOPAMIDOL-370 100ML BTL INJ ONE (14:14)
--- NOTE | 2021-04-08 14:34 | P.PRLE ---
RE: Candy Barton Dear Dr. Jarred Gupta underwent an A. fib ablation successfully without any complications She will continue ELIQUIS as before Thank you for entrusting me with the care of the patient Warm regards Sincerely Gigi Easley
[2021-04-08] MEDS ORDERED: IV FLUID CONTINUATION 1,000 ML IV ONE ×2 (14:43→14:45)
--- NOTE | 2021-04-08 15:09 | P.EPPROC ---
- EP Procedure Note Electrophysiology Procedure Note: PROCEDURE A. fib ablation, PVI, cryoablation DIAGNOSIS Atrial fibrillation, symptomatic, refractory to therapy Paroxysmal RESULT No left atrial appendage mass seen on intracardiac echo Successful A. fib ablation/pulmonary vein isolation of all veins using cryo- ablation Complete entrance block in all 4 veins confirmed Mildly prolonged corrected sinus node recovery times No evidence for phrenic nerve injury Esophageal deflection YES, right-sided esophagus PROCEDURE DETAILS Patient was brought to the EP lab in a fasting state. Written informed consent was obtained prior to the procedure. Procedure performed under general anesthesia After initial muscle relaxant use, muscle relaxants were not given thereafter in order to assess phrenic nerve during procedure. Patient prepped and draped as per protocol Full cryo-set up with standard preparation of the cryoablation tools done. F emoral Venous access obtained on the right and left groins Venous and arterial Sheaths placed. Diagnostic catheters for the high right atrium, phrenic nerve stimulation and pacing, His bundle, RV and coronary sinus placed Intracardiac echo catheter placed. Long sheath placed in the right atrium Left and right transseptal catheterization performed under intracardiac echo guidance. Intravenous heparin with aCT above 300 Later, catheter positioning and balloon positioning in the left atrium, under intracardiac echo guidance Diagnostic EP study with Drug infusion Coronary sinus pacing and recording Baseline measurements Sinus cycling 1011 ms, TX interval 148 ms, QRS 104 ms and QT interval 470 ms AH interval 76 and HV interval 46 ms Atrial pacing performed from the high right atrium and the coronary sinus Sinus recovery times a 605 100 ms were 1366 and 05/13/2007 milliseconds. Corresponding carotid sinus node recovery times mildly prolonged AV node Wenckebach block for recurrent 30 ms RV pacing. VA Wenckebach block greater than 600 ms Transseptal catheterization performed RA pressure 14/6/12 LA pressure 35/6/18 Transseptal catheterization performed with standard sheath. The cryoablation sheath was then placed with an over the wire exchange without any acute complications. All 4 pulmonary veins were isolated in the following sequence: Left superior followed by left inferior followed by right superior followed by right inferior The cryo-ablation balloon was placed at the os of each vein 1.5 mL of IV dye was injected to confirm an occluded vein Goal during cryoablation was to achieve complete occlusion of the pulmonary vein, achieve -30 degrees C at 30 seconds and achieve -40 degrees C at 60 seconds and a time to effect of less than 60-90 seconds, . If not the balloon was repositioned to obtain this result After completion of Cryoblation with durations from 180-240 seconds, entrance block was confirmed with the Attain circular catheter in a roving fashion around the antrum of the pulmonary veins Phrenic nerve pacing was performed from the SVC, right innominate vein area and diaphragm voltage was monitored. Diaphragmatic contractions were also monitored manually for strength of contraction. Parameter goals for each cryo freeze Complete occlusion of the appropriate vein -30 degrees C by 30 seconds -40 degrees C by 60 seconds Minimum between minus 40-55 degrees C Thaw time greater than 10 seconds Balloon visualized by intracardiac echo The esophagus was intubated. Esophageal Temperature monitoring with a CIRCA catheter formed. Esophageal deflection for hypothermia of the esophagus below 30 degrees C Left superior pulmonary vein Complete isolation, entrance block Left inferior pulmonary vein Complete isolation, entrance block Right superior pulmonary vein, during phrenic nerve pacing, for both upper and lower right superior branches Complete isolation, entrance block Right inferior pulmonary vein, during phrenic nerve pacing Complete isolation, entrance block At the end of the procedure the Achieve catheter was once again used to check for entrance block Phrenic nerve stimulation was performed to confirm diaphragmatic stimulation the end of the procedure Cine fluoroscopy was performed at the very end of the procedure to confirm movement of both diaphragms with inspiration and expiration At the end of the procedure the patient was extubated Heparin was reversed Venous sheaths were removed and hemostasis assured PROCEDURES PERFORMED Diagnostic EP study CS pacing and recording Left and right transseptal catheterization Catheter the mapping of the tachycardia (NOT 3D mapping) Intracardiac echocardiography Pulmonary vein isolation with transseptal and comprehensive EPS, [id number] Drug Infusion [id number]
[2021-04-08] MEDS ORDERED: ONDANSETRON 4 MG/2 ML VIAL IVP PRN (17:10)
[2021-04-08] MEDS ORDERED: ACETAMINOPHEN TAB 325 MG TAB PO PRN (17:10)
[2021-04-08] MEDS ORDERED: ACETAMINOPHEN IV (For NPO) 1,000 MG in EMPTY BAG 1 BAG IVPB ONE (17:30)
[2021-04-08] MEDS: APIXABAN 5 MG TAB PO SCH (20:41)
[2021-04-08] MEDS ORDERED: ATORVASTATIN 10 MG TAB PO SCH (21:00)
[2021-04-09] MEDS: APIXABAN 5 MG TAB PO SCH (07:26)
[2021-04-09 07:33] VITALS: BP 121/66; PULSE 69; RESP 18; TEMP 98.4
--- NOTE | 2021-04-09 17:34 | DS ---
DISCHARGE SUMMARY Candy Barton is a 65-year-old female who has paroxysmal atrial fibrillation. She underwent cryoablation of the pulmonary veins yesterday successfully. Last night she was nauseous after extubation, but today she is doing very well. Her mucous membranes are moist. She has no nausea or vomiting anymore. Her groins have healed well. Minimal discomfort. No chest discomfort. No dizziness, no lightheadedness. Heart sounds are normal. Normal S1, normal S2. No murmurs. Lungs are clear. No rhonchi, no crackles. Abdomen is soft. Blood pressure is normal. Her 12-lead EKG shows sinus rhythm with T-wave inversions in Lead V4 to V6. IMPRESSION: 1. Paroxysmal atrial fibrillation. 2. Status post cryoablation of the pulmonary veins for pulmonary vein isolation. 3. Dyslipidemia on atorvastatin. PLAN: Discharge home today after ablation. The patient has been ambulating around in the room and is asymptomatic and she can go home this morning and follow up with me in 1 to 2 weeks. She needs to continue Eliquis and atorvastatin. MMODL / IJN: [id number] /
== END 2021-04-09 10:33 | disposition home or self-care (01) ==
LOC: CATHEP 09:57 → 6NMEDSUR 15:08 → CATHEP 04-09 10:33
PROVIDERS: ATTEND Internal Medicine Clinical Cardiac Electrophysiology
DX: I48.91 Unspecified atrial fibrillation (principal); Z20.822 Contact with and (suspected) exposure to COVID-19
CPT/HCPCS: 93623; 93662; 93609; 93656; 80048; 85025; 87635; C1894 ×2; C1769 ×4; C1760; C1730 ×2; C1893; C1733; C1766; J2250; J2720; J1644 ×2; J2405; J2001; J1170; J2370; J0330; J2704; Q9967

== ENCOUNTER → 2021-05-07 | Outpatient (CLI) | payer MEDICARE ==
--- NOTE | 2021-05-07 11:00 | XR ---
EXAMINATION TYPE: XR chest 2V DATE OF EXAM: 05/07/2021 COMPARISON: NONE HISTORY: Shortness of breath TECHNIQUE: Frontal and lateral views of the chest are obtained. FINDINGS: Scattered senescent parenchymal changes noted. Hyperinflation compatible with COPD. No evidence for infiltrate. Linear atelectasis or parenchymal scarring right midlung zone. Heart size is stable. Mediastinal structures are stable and grossly unremarkable. No evidence for hilar prominence. Degenerative changes dorsal spine. IMPRESSION: 1. No evidence for acute pulmonary disease.
--- NOTE | 2021-05-07 11:03 | XR ---
EXAMINATION TYPE: XR ribs LT DATE OF EXAM: 05/07/2021 CLINICAL HISTORY: Pain, Fall Four views of the ribs fail demonstrate evidence for displaced rib fracture or secondary sign of rib fracture. Visualized lungs are clear. No evidence for pneumothorax. IMPRESSION: No displaced rib fractures seen. ICD 10 NO FRACTURE, INITIAL EVALUATION
== END | disposition home or self-care (01) ==
LOC: RADXRMAIN 10:29
PROVIDERS: ATTEND Internal Medicine
DX: R07.81 Pleurodynia (principal); R06.02 Shortness of breath; W19.XXXA Unspecified fall, initial encounter
CPT/HCPCS: 71046

== ENCOUNTER → 2021-09-03 | Outpatient (CLI) | payer MEDICARE ==
--- NOTE | 2021-09-03 12:28 | SFUN ---
SLEEP CENTER FOLLOW UP NOTE DATE OF SERVICE: 09/03/2021 This 65-year-old lady has been followed in Sleep Center for treatment of obstructive sleep apnea-hypopnea syndrome. Recently the patient had a home sleep apnea test which showed severe obstructive sleep apnea-hypopnea syndrome, and then the patient had CPAP titration. During titration her respiration improved on a pressure 13 to an apnea-hypopnea index of 7.4. The patient was started on treatment with CPAP and today is her first visit after treatment was initiated. She is able to use her CPAP equipment for most nights. She feels better on CPAP, but her compliance is slightly below normal. It is more than 4 hours 63% of the nights. Reading from information from her CPAP unit showed range of the pressure 7 to 15 with average pressure 11.8, maximal 12.9. Leak 95% 15.5 L/minute, which is acceptable. Sometimes it goes up to 73 L/minute. Apnea-hypopnea index is reduced to 8.6, but this is still slightly above our goal. [place] Sleepiness Scale today is 5, which is normal. MEDICATIONS: Eliquis, atorvastatin. PHYSICAL EXAMINATION: GENERAL: Pleasant patient in no distress. VITAL SIGNS: BP 128/76, HR 69, RR 16, weight 250, temperature 97.1, oxygen saturation at room air 97%. HEENT: PERRLA, EOMI, evaluation of oropharynx showed tongue protrudes midline. NECK: Supple, no JVD. Thyroid is not palpable. LUNGS: Clear to percussion and to auscultation. Good air exchange. No wheezing or rhonchi. HEART: S1, S2 regular. No murmurs, gallops, or rubs. ABDOMEN: Obese. EXTREMITIES: No clubbing or cyanosis. PLASTIC PRINTER: Awake, alert, and oriented X3. Cranial nerves 2 to 7 intact. There is no fasciculation or atrophy. noted. No focal deficits observed. IMPRESSION: 1. Severe obstructive sleep apnea-hypopnea syndrome with some questionable episodes of Aquiles-Reddy breathing. On CPAP, respiration improved from apnea-hypopnea index 42.5 down to 8.6 according to reading from CPAP unit. Compliance is slightly below normal range, but I believe it will be better after her mask is changed to a nasal pillow mask. 2. History of paroxysmal atrial fibrillation. 3. Obesity. 4. History of restless leg symptoms. 5. Hyperlipidemia. 6. Arthritis. 7. History of sinus problems. 8. Acid reflux. 9. Status post cholecystectomy. 10.Status post right knee arthroscopic surgery. 11.Status post rotator cuff surgery. 12.Status post . PLAN: 1. Patient will continue to use CPAP equipment every night for the whole night. 2. I will see the patient in two months to re-evaluate her compliance with treatment and to check her clinical response on treatment. 3. Precautions related to driving. No driving if feeling any sleepiness. 4. Watching and losing weight. 5. Sleep hygiene with regular time in bed for at least 7-1/2 hours. Thank you very much for allowing me to participate in the management of your patient. Sincerely, Rafa Mann MD, PhD, FAASM Diplomat of [employer] [employer] Sleep Medicine Board of [place] [employer] Ground Support Agent of [facility] [place] MMPREMAL / KALPANAN: [id number] /
== END ==
LOC: SLEEP 10:37
PROVIDERS: ATTEND Internal Medicine
DX: G47.33 Obstructive sleep apnea (adult) (pediatric) (principal); Z99.89 Dependence on other enabling machines and devices; Z86.79 Personal history of other diseases of the circulatory system; E66.9 Obesity, unspecified; G25.81 Restless legs syndrome; E78.5 Hyperlipidemia, unspecified; M19.90 Unspecified osteoarthritis, unspecified site; Z87.09 Personal history of other diseases of the respiratory system; K21.9 Gastro-esophageal reflux disease without esophagitis; Z90.49 Acquired absence of other specified parts of digestive tract; Z98.890 Other specified postprocedural states; Z87.59 Personal history of other complications of pregnancy, childbirth and the puerperium; Z79.01 Long term (current) use of anticoagulants; Z88.5 Allergy status to narcotic agent; Z88.6 Allergy status to analgesic agent

== ENCOUNTER → 2021-09-09 | Outpatient (CLI) | payer MEDICARE ==
[2021-09-09 15:15] LABS: Basophils # (A) 0.04 X 10*3/uL (0.00-0.10); Basophils % (A) 0.7 %; Eosinophils # (A) 0.45 X 10*3/uL (0.04-0.35); Eosinophils % (A) 7.7 %; HCT 41.7 % (37.2-46.3); HGB 13.1 g/dL (12.0-15.0); Immature Grans, Automated 0.3 %; Lymphocytes # (A) 1.84 X 10*3/uL (0.90-5.00); Lymphocytes % (A) 31.3 %; MCH 31.6 pg (27.0-32.0); MCHC 31.4 g/dL (32.0-37.0); MCV 100.7 fL (80.0-97.0); Mean Platelet Volume 11.8 fL (9.5-12.2); Monocytes # (A) 0.49 X 10*3/uL (0.20-1.00); Monocytes % (A) 8.3 %; NRBC Per 100 WBC 0 /100 WBCS (0.0-0.0); Neutrophils # (A) 3.04 X 10*3/uL (1.80-7.70); Neutrophils % (A) 51.7 %; Platelet Count 245 X 10*3/uL (140-440); RBC 4.14 X 10*6/uL (4.10-5.20); RDW 12.9 % (11.5-14.5); WBC 5.88 X 10*3/uL (4.50-10.00)
[2021-09-09 16:30] LABS: LDL Cholesterol,Calculated 69.8 mg/dL (0.0-131.0)
[2021-09-09 16:31] LABS: Erythrocyte Sedimentation Rate 10 mm/Hr (0-30)
[2021-09-09 16:34] LABS: Creatine Kinase 76 U/L (26-186); Magnesium 2.5 mg/dL (1.5-2.4)
[2021-09-09 17:45] LABS: ALT 26 U/L (8-44); AST 25 U/L (13-35); African American GFR (CKD) 21.4 (60.0-200.0); Albumin 4.2 g/dL (3.8-4.9); Albumin/Globulin Ratio 1.11 (1.60-3.17); Alkaline Phosphatase 132 U/L (41-126); BUN/Creat Ratio 4.88 Ratio (12.00-20.00); Blood Urea Nitrogen 12.7 mg/dL (9.0-27.0); Calcium 9.3 mg/dL (8.7-10.3); Carbon Dioxide 24.7 mmol/L (20.0-27.5); Chloride 104 mmol/L (96-109); Globulin 3.8 g/dL (1.6-3.3); Glucose 94 mg/dL (70-110); Non-African American GFR(CKD) 18.5 (60.0-200.0); Potassium 4.5 mmol/L (3.5-5.5); Sodium 141 mmol/L (135-145)
[2021-09-09 20:16] LABS: Phosphorus 3.4 mg/dL (2.4-5.1)
== END | disposition home or self-care (01) ==
LOC: LABWHC1 08:23
PROVIDERS: ATTEND Internal Medicine
DX: Z00.00 Encounter for general adult medical examination without abnormal findings (principal); D64.9 Anemia, unspecified; J44.9 Chronic obstructive pulmonary disease, unspecified; E78.5 Hyperlipidemia, unspecified; E03.9 Hypothyroidism, unspecified; E66.9 Obesity, unspecified; E55.9 Vitamin D deficiency, unspecified; I10 Essential (primary) hypertension
CPT/HCPCS: 36415; 80053; 80061; 82103; 82306; 82550; 83735; 84100; 84443; 85025; 85652; 86140

== ENCOUNTER → 2021-10-29 | Outpatient (CLI) | payer MEDICARE ==
--- NOTE | 2021-10-29 12:06 | P.PN ---
Subjective DATE: 10/29/2021 FOLLOW UP VISIT. Patient with obstructive sleep apnea hypopnea syndrome return to sleep center for follow-up visit. Patient is using PAP equipment every night for the whole night, getting PAP supplies in time. The patient does not have significant problems with the mask, PAP unit and humidification. [place] sleepiness scale is 3. I checked information from PAP unit. PAP unit pressure 7 to 15, average 11.1 cm H2O. Usage is 90 % of nights, average 4.2 hours per night. Leak is 7.4 l/m, which is in acceptable range. Apnea Hypopnea Index is 7.6, which slightly improved comparing with previous visit when it was 8.6 is normal. Patient has more difficulties with the sleep at the present time because of family situation with her mother related to falling to sleep and awakenings from sleep MEDICATIONS:1. Eliquis 5 mg twice a day 2. Atorvastatin 10 mg once a day During physical exam: GENERAL: A pleasant patient without any distress. VITAL SIGNS: BP 132/77, HR 65, RR 16 , weight 250.6, temperature 96.9, oxygen saturation at room air 96 . HEENT: PERRLA, EOMI.low position of soft palate, Mallapati 3 . NECK: Supple. No JVD. LUNGS: Clear to percussion and to auscultation. Good air exchange. No wheezing or rhonchi. HEART: S1, S2 regular. ABDOMEN: Soft and nontender. Obese EXTREMITIES: No clubbing or cyanosis. MAGNETIZER: Awake, alert, and oriented x3. No focal deficit. Impressions: 1. Severe Obstructive sleep apnea-hypopnea syndrome with episodes of possible Aquiles- Reddy respiration. Patient demonstrated great compliance with treatment, benefiting from treatment. Apnea-hypopnea index improved comparing with previous visit but still slightly above normal. 2. History of paroxysmal atrial fibrillation. 3. Obesity. 4. Insomnia psychophysiological. 5. Hyperlipidemia. 6. History of sinusitis problems. 7. Acid reflux. 8. Status post cholecystectomy. 9. Status post a right knee arthroscopic surgery. 10 status post rotator cuff surgery Plan: 1. Continue using PAP equipment every night for the whole night. 2. To change air filter at least 1-2 times per month. 3. PAP unit should stay lower then position of the head. 4. Advised patient to remove all remaining water from humidifier canister daily and make it dry after each usage. Refill canister with fresh distilled water before each usage. 5. Sleep hygiene with regular time in bed for at least 8 hours. 6. Precautions related to driving. No driving if feel any sleepiness. 7. I will maintain prescription for PAP supplies including mask, tube, filters. 8. Follow up visit in 4 months or earlier if patient has any problems. 9. Watching weight. 10. Prescription for clonazepam 0.5 mg 20 tablets with recommendation to take 1 tablet at bedtime with no refills. Thank you very much for allowing me to participate in the management of your patient. Rafa Mann MD, PhD, FAASM. Diplomat of [place] [employer], Sleep Medicine Board by [place] [employer] [facility] [place]
== END ==
LOC: SLEEP 11:12
PROVIDERS: ATTEND Internal Medicine
DX: G47.33 Obstructive sleep apnea (adult) (pediatric) (principal); I48.0 Paroxysmal atrial fibrillation; E66.9 Obesity, unspecified; F51.04 Psychophysiologic insomnia; E78.5 Hyperlipidemia, unspecified; K21.9 Gastro-esophageal reflux disease without esophagitis; Z90.49 Acquired absence of other specified parts of digestive tract; Z98.890 Other specified postprocedural states; Z87.09 Personal history of other diseases of the respiratory system; Z99.89 Dependence on other enabling machines and devices; Z79.01 Long term (current) use of anticoagulants; Z79.899 Other long term (current) drug therapy; Z88.5 Allergy status to narcotic agent; Z88.6 Allergy status to analgesic agent

== ENCOUNTER → 2022-03-04 | Outpatient (CLI) | payer MEDICARE ==
--- NOTE | 2022-03-04 13:31 | P.PN ---
Subjective DATE: 03/04/2022 FOLLOW UP VISIT. Patient with obstructive sleep apnea hypopnea syndrome return to sleep center for follow-up visit. Information from previous visit have been reviewed. Patient did not use CPAP equipment for last several weeks because she started to hear some clicking sound while she started to use use CPAP equipment. Yesterday after she cleaned her CPAP equipment no any clicking sound at night. Possibly it was collection of water in the tube. I checked information from PAP unit. PAP unit pressure 7-15, average 10.0 cm H2O. Usage is 60 % for the last months, average 3.5 hours per night. Leak is 7.0 l/m, which is in acceptable range. Apnea Hypopnea Index is 7.4, which is increased. MEDICATIONS:1. Atorvastatin 10 mg once a day 2. Eliquis 5 mg twice a day During physical exam: GENERAL: A pleasant patient without any distress. VITAL SIGNS: BP 159/86, HR 80, RR 16 , weight 253, height 5 foot 6 inches, body mass index 40.2, temperature 97.5, oxygen saturation at room air 96 % . HEENT: PERRLA, EOMI.low position of soft palate, Mallapati 3 . NECK: Supple. No JVD. LUNGS: Clear to percussion and to auscultation. Good air exchange. No wheezing or rhonchi. HEART: S1, S2 regular. ABDOMEN: Soft and nontender. Obese EXTREMITIES: No clubbing or cyanosis. SOLDERING MACHINE FEEDER: Awake, alert, and oriented x3. No focal deficit. Impressions: 1. Obstructive sleep apnea-hypopnea syndrome. Patient demonstrated low compliance, because she had some clicking sound from her equipment, possibly it was related to collection of water in the tube. Apnea-hypopnea index slightly above normal. 2. Obesity. 3. History of paroxysmal atrial fibrillation. 4. Psychophysiological insomnia. 5. Hyperlipidemia. 6. Acid reflux. 7. History of sinuses problems. 8. Status post cholecystectomy. 9. Status post right knee arthroscopic surgery. 10. Status post rotator cuff surgery. Plan: 1. Continue using PAP equipment every night for the whole night. 2. To change air filter at least 1-2 times per month. 3. PAP unit should stay lower then position of the head. 4. Advised patient to remove all remaining water from humidifier canister daily and make it dry after each usage. Refill canister with fresh distilled water before each usage. 5. Sleep hygiene with regular time in bed for at least 8 hours. 6. Precautions related to driving. No driving if feel any sleepiness. 7. I will maintain prescription for PAP supplies including mask, tube, filters. 8. Follow up visit in 2 months or earlier if patient has any problems. 9. Watching and losing weight. Thank you very much for allowing me to participate in the management of your patient. Rafa Mann MD, PhD, FAASM. Diplomat of [place] [employer], Sleep Medicine Board by [place] [employer]re Feeder of [facility] [place]
== END ==
LOC: SLEEP 11:42
PROVIDERS: ATTEND Internal Medicine
DX: G47.33 Obstructive sleep apnea (adult) (pediatric) (principal); E66.9 Obesity, unspecified; I48.91 Unspecified atrial fibrillation; E78.5 Hyperlipidemia, unspecified; K21.9 Gastro-esophageal reflux disease without esophagitis; Z90.49 Acquired absence of other specified parts of digestive tract; Z87.09 Personal history of other diseases of the respiratory system; Z47.89 Encounter for other orthopedic aftercare; Z96.651 Presence of right artificial knee joint; Z88.5 Allergy status to narcotic agent; Z88.8 Allergy status to other drugs, medicaments and biological substances
CPT/HCPCS: 99212

== ENCOUNTER → 2022-09-24 | Outpatient (CLI) | payer MEDICARE ==
--- NOTE | 2022-09-24 16:48 | P.PN ---
Subjective DATE: 09/24/2022 FOLLOW UP VISIT. Patient with obstructive sleep apnea hypopnea syndrome return to sleep center for follow-up visit. Information from previous visit have been reviewed. Patient is using PAP equipment every night for the whole night, getting PAP supplies in time. The patient does not have significant problems with the mask, PAP unit and humidification. [place] sleepiness scale is 3, which is normal. I checked information from PAP unit. PAP unit pressure 7-15, average 13.1 cm H2O. Usage is 52 % , average 4 hours 18 minutes per night. Leak is 5.2 l/m, which is in acceptable range. Apnea Hypopnea Index is slightly increased to 7.6, which is normal. MEDICATIONS:1. Atorvastatin 10 mg once a day 2. Losartan 25 mg once a day 3. Eliquis 5 mg once a day 4. Albuterol During physical exam: GENERAL: A pleasant patient without any distress. VITAL SIGNS: BP 156/75, HR 68, RR 16 , weight 262.0, temperature 97.5, oxygen saturation at room air 97 % . HEENT: PERRLA, EOMI.low position of soft palate, Mallapati 3 . NECK: Supple. No JVD. LUNGS: Clear to percussion and to auscultation. Good air exchange. No wheezing or rhonchi. HEART: S1, S2 regular. ABDOMEN: Soft and nontender. Obese EXTREMITIES: No clubbing or cyanosis. AUTOMATIC SEAMER: Awake, alert, and oriented x3. No focal deficit. Impressions: 1. Obstructive sleep apnea-hypopnea syndrome. Patient demonstrated slightly low compliance with treatment, benefiting from treatment. 2. Obesity, BMI 41.1. 3. History of paroxysmal atrial fibrillation. 4. Hypertension. 5. Hyperlipidemia. 6. History of acid reflux. 7. Status post cholecystectomy. 8. Status post rotator cuff surgery. 9. Status post right knee arthroscopic surgery. I changed pressure in CPAP unit to the range 7-16 cm of water. Plan: 1. Continue using PAP equipment every night for the whole night. 2. To change air filter at least 1-2 times per month. 3. PAP unit should stay lower then position of the head. 4. Advised patient to remove all remaining water from humidifier canister daily and make it dry after each usage. Refill canister with fresh distilled water before each usage. 5. Sleep hygiene with regular time in bed for at least 8 hours. 6. Precautions related to driving. No driving if feel any sleepiness. 7. I will maintain prescription for PAP supplies including mask, tube, filters. 8. Watching and losing weight. 9. Follow up visit in 6 months or earlier if patient has any problems. Thank you very much for allowing me to participate in the management of your patient. Rafa Mann MD, PhD, FAASM. Diplomat of [place] [employer], Sleep Medicine Board by [place] [employer] Career Development Engineer of [facility] [place]
== END ==
LOC: SLEEP 15:08
PROVIDERS: ATTEND Internal Medicine
DX: G47.33 Obstructive sleep apnea (adult) (pediatric) (principal); E66.9 Obesity, unspecified; Z68.41 Body mass index [BMI] 40.0-44.9, adult; I48.0 Paroxysmal atrial fibrillation; I10 Essential (primary) hypertension; E78.5 Hyperlipidemia, unspecified; K21.9 Gastro-esophageal reflux disease without esophagitis; Z98.890 Other specified postprocedural states; Z96.651 Presence of right artificial knee joint; Z99.89 Dependence on other enabling machines and devices; Z79.01 Long term (current) use of anticoagulants; Z88.5 Allergy status to narcotic agent; Z88.6 Allergy status to analgesic agent; Z88.8 Allergy status to other drugs, medicaments and biological substances
CPT/HCPCS: 99212

== ENCOUNTER → 2022-10-13 | Outpatient (CLI) | payer MEDICARE ==
[2022-10-13 15:15] LABS: HCT 42.3 %; HGB 13.3 d/dL; MCH 31.5 pg; MCHC 31.4 d/dL; MCV 100.2 FL; Mean Platelet Volume 11.6 FL; NRBC Per 100 WBC 0 X 10*3/uL; Platelet Count 227 X 10*3/uL; RBC 4.22 X 10*6/uL; RDW 12.7 %; WBC 6.38 X 10*3/uL
[2022-10-13 15:50] LABS: Anion Gap 11.7 mmol/L; Blood Urea Nitrogen 9.2 mg/dL; Carbon Dioxide 21.3 mmol/L; Potassium 4.4 mmol/L
== END | disposition home or self-care (01) ==
LOC: LABPAT 09:35
PROVIDERS: ATTEND Internal Medicine
DX: Z01.812 Encounter for preprocedural laboratory examination (principal); R94.39 Abnormal result of other cardiovascular function study
CPT/HCPCS: 36415; 80051; 84520; 85027

== ENCOUNTER 2022-10-29 09:00 | Day surgery (SDC) | payer MEDICARE ==
[2022-10-26 14:31] VITALS: BMI 38.4
[~2022-10-29 09:00] MED LIST changes: +ALPRAZolam 0.25 MG TAB PO PRN; +ALPRAZolam 0.5 MG TAB PO PRN; +ASPIRIN 325 MG TAB PO STA; +ATORVASTATIN 80 MG TAB PO STA; +HEPARIN SODIUM,PORCINE 10,000 UNIT in SODIUM CHLORIDE 0.9% 1,000 ML IRRIGATION PRN; +HEPARIN SODIUM,PORCINE 2,500 UNIT in SODIUM CHLORIDE 0.9% 250 ML IRRIGATION PRN; -LACTATED RINGERS 1,000 ML IV SCH; +NITROGLYCERIN SL TABS 0.4 MG TAB SUBLINGUAL PRN; -SODIUM CHLORIDE 0.9% 1,000 ML IV SCH; +SODIUM CHLORIDE 0.9% 1,000 ML in EMPTY BAG 1 BAG IV SCH
[2022-10-29 09:26] VITALS: RESP 18; TEMP 98
[2022-10-29 10:13] LABS: African American GFR (CKD) 76 (>60 ml/min/1.73 sqM); Anion Gap 8 mmol/L; Blood Urea Nitrogen 11 mg/dL (7-17); Calcium 9.2 mg/dL (8.4-10.2); Carbon Dioxide 24 mmol/L (22-30); Chloride 105 mmol/L (98-107); Glucose 101 mg/dL (74-99); Non-African American GFR(CKD) 66 (>60 ml/min/1.73 sqM); Potassium 5.2 mmol/L (3.5-5.1); Sodium 137 mmol/L (137-145)
[2022-10-29] MEDS ORDERED: VERAPAMIL 2.5 MG/ML 2 ML AMP ONE (10:14)
[2022-10-29] MEDS ORDERED: HEPARIN SODIUM 1,000 UN/ML (10ML VL) ONE (10:18)
[2022-10-29] MEDS ORDERED: fentaNYL (PF) 50 MCG/ML 2 ML AMP ONE (10:18)
[2022-10-29] MEDS ORDERED: fentaNYL (PF) 50 MCG/ML 2 ML AMP IVP ONE (10:37)
[2022-10-29] MEDS ORDERED: MIDAZOLAM 2 MG/2 ML VIAL IVP ONE (10:38)
[2022-10-29] MEDS ORDERED: LIDOCAINE 1% INJ 10MG/ML (5 ML VIAL-PF) SQ ONE (10:39)
[2022-10-29] MEDS ORDERED: VERAPAMIL SYRINGE (5 MG/10 ML) INTRAARTER ONE ×2 (10:40→10:57)
[2022-10-29] MEDS ORDERED: LIDOCAINE 1% INJ 10MG/ML (20 ML MDV) ONE (10:40)
[2022-10-29] MEDS ORDERED: LIDOCAINE 1% INJ 10MG/ML (30 ML VIAL-PF) SQ ONE (10:45)
[2022-10-29] MEDS ORDERED: HEPARIN SODIUM 1,000 UN/ML (10ML VL) IVP ONE (10:59)
[2022-10-29] MEDS ORDERED: IOPAMIDOL-370 100ML BTL INJ ONE (11:03)
[2022-10-29 11:10] LABS: O2 Sat Blood Gas 70.5 %
[2022-10-29 11:13] LABS: O2 Sat Blood Gas 95.2 %
[2022-10-29 11:15] LABS: O2 Sat Blood Gas 73.6 %
[2022-10-29 15:35] VITALS: BP 141/64
[2022-10-29 15:49] VITALS: PULSE 62
--- NOTE | 2022-10-29 21:53 | P.CARDCATH ---
Description of Procedure: PROCEDURES PERFORMED: Left heart catheterization, right heart catheterization, bilateral coronary angiography, ultrasound guided arterial access INDICATION: Abnormal stress test CONSENT:I have discussed the risks, benefits and alternative therapies for the above-mentioned procedure and for both sedation/analgesia as well as necessary blood product administration, if indicated, as they pertain to this patient. The patient has indicated understanding and acceptance of the risks and procedures discussed. PROCEDURE: After the risks, benefits and alternatives of the above mentioned procedure explained in detail with the patient, informed consent was obtained. Patient was taken to the catheterization lab and prepped and draped in usual fashion. Ultrasound guidance was used to assess for arterial access. 1% lidocaine was used to anesthetize the right radial artery and right brachial area. A 6-Swazi sheath was placed in the right radial artery and another 6Fr sheath in the right brachial vein using modified Seldinger technique and ultrasound guidance. A 5Fr [place] Kyung catheter was inserted into the PCWP, PA, RV and RA position and pressure and oxygen saturation measurements were made. Thermodilution was performed. Left coronary angiography was performed with a 5- Swazi JL 3.5 catheter and right coronary angiography was performed with a 5- Swazi JR5 catheter in various views. A 5-Swazi FR5 catheter was inserted into the left ventricle and pressure measurements were obtained. The right radial sheath was removed and a TR band was placed with hemostasis achieved. The venous sheath was pulled and manual pressure held. The patient tolerated the procedure well. Patient was transported back to the post ca theterization holding area in stable condition. Conscious Sedation: Patient was monitored under the direct supervision of myself for conscious sedation using Versed and fentanyl for a total duration of 24 minutes HEMODYNAMICS: Aorta: 150/75 LV: 146/12 LVEDP 21 PCWP: 25 PA: 59/18 (38) RV: 62/6 RA: 14 PA oxygen saturation: 74% RA oxygen saturation: 71% Right radial oxygen saturation: 95% Cardiac outpt by ORVILLE: 7.5L/min Cardiac index by ORVILLE: 3.26L/min/m2 Cardiac outpt by thermodilution: 5.7L/min Cardiac index by thermodilution: 2.4L/min/m2 SELECTIVE CORONARY ARTERIOGRAPHY: LEFT MAIN: The left main is a large caliber vessel which bifurcates into the LAD and circumflex. There is no significant stenosis. LEFT ANTERIOR DESCENDING CORONARY ARTERY: LAD is a large caliber vessel which wraps around to the apex. There is no significant stenosis. LEFT CIRCUMFLEX CORONARY ARTERY: Left circumflex is a moderate caliber vessel without significant stenosis. RIGHT CORONARY ARTERY: The right coronary artery is a small to moderate caliber vessel which gives off a PDA and PLV branch and is the dominant vessel. There is a high bifurcation of the proximal RCA. There is no significant stenosis. FINAL IMPRESSION: 1. Normal coronary arteries as described above. 2. Elevated left and right filling pressure 3. Group 2 Pulmonary hypertension 4. Normal cardiac outpt/ cardiac index PLAN: 1. Aggressive risk factor modification per most recent ACC/AHA guidelines. 2. Consider increasing diuretics given elevated left and right sided pressures
== END 2022-10-29 16:00 | disposition home or self-care (01) ==
LOC: CATHCVL 09:00
PROVIDERS: ATTEND Internal Medicine
DX: R94.39 Abnormal result of other cardiovascular function study (principal); I27.20 Pulmonary hypertension, unspecified; I48.0 Paroxysmal atrial fibrillation; E78.5 Hyperlipidemia, unspecified; Z82.49 Family history of ischemic heart disease and other diseases of the circulatory system; I10 Essential (primary) hypertension; Z88.6 Allergy status to analgesic agent; Z88.8 Allergy status to other drugs, medicaments and biological substances; Z79.01 Long term (current) use of anticoagulants; Z79.899 Other long term (current) drug therapy
CPT/HCPCS: 93460; 76937; 80048; 85018; 82810; 99152; 99153; C1769; C1751; J2250; J2001 ×2; J3010; J1644; Q9967

== ENCOUNTER 2022-10-31 10:01 | Emergency (ER) | payer MEDICARE ==
--- NOTE | 2022-10-31 11:02 | ED ---
General Adult HPI - General Chief complaint: Recheck/Abnormal Lab/Rx Stated complaint: Right arm bruising Time Seen by Provider: 10/31/22 10:32 Source: patient, RN notes reviewed Mode of arrival: ambulatory Limitations: no limitations - History of Present Illness Initial comments: 67-year-old female presents emergency Department chief complaint of right wrist swelling. Patient states she had a cardiac cath on . She states she took the bandage off onto some swelling states that she went to movement felt like it popped states there is increasing swelling she's noticed increasing bruising along with this. She states it is very tender to the touch. Patient denies any chest pain no upper arm pain no other complaints. - Related Data Home Medications Medication Instructions Recorded Confirmed Apixaban [Eliquis] 5 mg PO BID 04/01/21 10/29/22 Atorvastatin [Lipitor] 10 mg PO HS 04/01/21 10/29/22 Losartan Potassium [Cozaar] 25 mg PO HS 10/26/22 10/29/22 Allergies Allergy/AdvReac Type Severity Reaction Status Date / Time acetaminophen [From Vicodin] Allergy Unknown Verified 10/31/22 10:10 hydrocodone [From Vicodin] Allergy Unknown Verified 10/31/22 10:10 fentanyl AdvReac Vomiting Verified 10/31/22 10:10 Review of Systems ROS Statement: Those systems with pertinent positive or pertinent negative responses have been documented in the HPI. ROS Other: All systems not noted in ROS Statement are negative. Past Medical History Past Medical History: Atrial Fibrillation, Hyperlipidemia, Hypertension, Osteoarthritis (OA), Sleep Apnea/CPAP/BIPAP Additional Past Medical History / Comment(s): ectopic , abnormal stress test. Hx. of A-Fib. History of Any Multi-Drug Resistant Organisms: None Reported Past Surgical History: Cardiac Ablation, Section, Cholecystectomy, Orthopedic Surgery Additional Past Surgical History / Comment(s): eye surgery, R knee scope, L Rotator cuff. Past Anesthesia/Blood Transfusion Reactions: Postoperative Nausea & Vomiting (PONV) Additional Past Anesthesia/Blood Transfusion Reaction / Comment(s): Vomiting after anesthesia. Past Psychological History: No Psychological Hx Reported Smoking Status: Never smoker Past Alcohol Use History: None Reported Past Drug Use History: None Reported - Past Family History Mother Family Medical History: No Reported History General Exam Limitations: no limitations General appearance: alert, in no apparent distress Head exam: Present: atraumatic, normocephalic, normal inspection Respiratory exam: Present: normal lung sounds bilaterally. Absent: respiratory distress, wheezes, rales, rhonchi, stridor Cardiovascular Exam: Present: regular rate, normal rhythm, normal heart sounds. Absent: systolic murmur, diastolic murmur, rubs, gallop, clicks Extremities exam: Present: other (Significant swelling, ecchymosis the right wrist there is a radial pulse and capillary refill less than 2 seconds) Skin exam: Present: warm, dry Course Vital Signs 10/31/22 10:08 Temperature 98 F Pulse Rate 68 Respiratory 18 Rate Blood Pressure 158/82 O2 Sat by Pulse 97 Oximetry Medical Decision Making - Medical Decision Making Was pt. sent in by a medical professional or institution (, HARI, LOGISTICS OPERATIONS MANAGER, urgent care, hospital, or jail...) When possible be specific @ -No Did you speak to anyone other than the patient for history (EMS, parent, family, police, friend...)? What history was obtained from this source @ -No Did you review nursing and triage notes (agree or disagree)? Why? @ -I reviewed and agree with nursing and triage notes Were old charts reviewed (outside hosp., previous admission, EMS record, old EKG, old radiological studies, urgent care reports/EKG's, jail records)? Report findings @ -No old charts were reviewed Differential Diagnosis (chest pain, altered mental status, abdominal pain women, abdominal pain men, vaginal bleeding, weakness, fever, dyspnea, syncope, headache, dizziness, GI bleed, back pain, seizure, CVA, palpatations, mental health, musculoskeletal)? @ -Pseudoaneurysm, hematoma EKG interpreted by me (3pts min.). @ -None X-rays interpreted by me (1pt min.). @ -None done CT interpreted by me (1pt min.). @ -None done U/S interpreted by me (1pt. min.). @ -Ultrasound shows no evidence of pseudoaneurysm there is noted hematoma. What testing was considered but not performed or refused? (CT, X-rays, U/S, labs)? Why? @ -None What meds were considered but not given or refused? Why? @ -None Did you discuss the management of the patient with other professionals (professionals i.e. , PA, LOGISTICS OPERATIONS MANAGER, lab, RT, psych nurse, social sciences professor, healthcare consultant, teacher, military police officer, catalytic case operator)? Give summary @ -No Was smoking cessation discussed for >3mins.? @ -No Was critical care preformed (if so, how long)? @ -No Were there social determinants of health that impacted care today? How? (Homelessness, low income, unemployed, alcoholism, drug addiction, transportation, low edu. Level, literacy, decrease access to med. care, fdc, rehab)? @ -No Was there de-escalation of care discussed even if they declined (Discuss DNR or withdrawal of care, Hospice)? DNR status @ -No What co-morbidities impacted this encounter? (DM, HTN, Smoking, COPD, CAD, Cancer, CVA, ARF, Chemo, Hep., AIDS, mental health diagnosis, sleep apnea, morbid obesity)? @ -None Was patient admitted / discharged? Hospital course, mention meds given and route, prescriptions, significant lab abnormalities, going to OR and other pertinent info. @ -Discharge patient has a hematoma the right wrist from recent cardiac cath with no evidence of pseudoaneurysm. Undiagnosed new problem with uncertain prognosis? @ -No Drug Therapy requiring intensive monitoring for toxicity (Heparin, Nitro, Insulin, Cardizem)? @ -No Were any procedures done? @ -No Diagnosis/symptom? @ -Hematoma Acute, or Chronic, or Acute on Chronic? @ -Acute Uncomplicated (without systemic symptoms) or Complicated (systemic symptoms)? @ -Uncomplicated Side effects of treatment? @ -No Exacerbation, Progression, or Severe Exacerbation? @ -No Poses a threat to life or bodily function? How? (Chest pain, [place], [place], pneumonia, PE, COPD, DKA, ARF, appy, cholecystitis, CVA, Diverticulitis, Homicidal, Suicidal, threat to staff... and all critical care pts) @ -No Disposition Clinical Impression: Traumatic hematoma of right wrist Disposition: HOME SELF-CARE Condition: Stable Instructions (If sedation given, give patient instructions): Hematoma (ED) Additional Instructions: Please return to the Emergency Department if symptoms worsen or any other concerns. Is patient prescribed a controlled substance at d/c from ED?: No Referrals: Trav Stern MD [Primary Care Provider] - 1-2 days Time of Disposition: 11:31
--- NOTE | 2022-10-31 11:27 | US ---
EXAMINATION TYPE: US upper ext pseudo RT DATE OF EXAM: 10/31/2022 COMPARISON: NONE CLINICAL INDICATION: Female, 67 years old with history of pain; Pt states right wrist pain, swelling, and bruising s/p heart cath on October 27 No evidence of pseudo aneurysm within right radial artery/ small subcutaneous fluid collection righ t posterior wrist FINDINGS: No sonographic evidence to suggest pseudoaneurysm or AV fistula. Small hematoma noted. IMPRESSION: Small hematoma. No evidence for pseudoaneurysm.
[2022-10-31 11:49] VITALS: BP 145/82; PULSE 67; RESP 16; TEMP 97.9
== END 2022-10-31 11:49 | disposition home or self-care (01) ==
LOC: EC 10:01
DX: S60.211A Contusion of right wrist, initial encounter (principal); I10 Essential (primary) hypertension; I48.91 Unspecified atrial fibrillation; E78.5 Hyperlipidemia, unspecified; G47.30 Sleep apnea, unspecified; M19.90 Unspecified osteoarthritis, unspecified site; Z79.01 Long term (current) use of anticoagulants; Z79.899 Other long term (current) drug therapy; Z88.5 Allergy status to narcotic agent; Z88.8 Allergy status to other drugs, medicaments and biological substances; X58.XXXA Exposure to other specified factors, initial encounter
CPT/HCPCS: 99283

== ENCOUNTER 2022-11-10 11:22 | Emergency (ER) | payer MEDICARE ==
--- NOTE | 2022-11-10 11:57 | ED ---
General Adult HPI - General Chief complaint: Syncope Stated complaint: Near syncope Time Seen by Provider: 11/10/22 11:40 Source: patient, family, RN notes reviewed, old records reviewed Mode of arrival: wheelchair - History of Present Illness Initial comments: This is a 67-year-old female presents emergency Department complaining that she had a near syncopal episode this morning. Patient states she feels very weak and lightheaded. Patient states she had a cardiac catheterization with a went to her right radial artery 10 days ago. Patient states since then it swelled up at her wrist and she's had some tingling sensation in the did do an ultrasound and it showed no pseudoaneurysm. Patient states this morning she got up did not take any of her medications felt like she was given a passout. She laid down 15 minutes and still feels extremely weak and a little had his she decided come to the emergency department. Patient denies any chest pain palpitations or diffic ulty breathing. Patient has a history of A. fib and is on eliquis. Patient states that they told her that her cardiac catheterization had no blockages. Patient denies any recent fever chills. Patient denies any abdominal pain patient denies nausea vomiting. Patient states she's eating normally and drinking normally - Related Data Home Medications Medication Instructions Recorded Confirmed Apixaban [Eliquis] 5 mg PO BID 04/01/21 11/10/22 Atorvastatin [Lipitor] 10 mg PO HS 04/01/21 11/10/22 Losartan Potassium [Cozaar] 25 mg PO HS 10/26/22 11/10/22 Triamterene/Hydrochlorothiazid 1 tab PO DAILY 11/10/22 11/10/22 [Triamterene-Hctz 37.5-25 mg Tb] Allergies Allergy/AdvReac Type Severity Reaction Status Date / Time hydrocodone [From Vicodin] Allergy Unknown Verified 11/10/22 12:42 fentanyl AdvReac Vomiting Verified 11/10/22 12:42 Review of Systems ROS Statement: Those systems with pertinent positive or pertinent negative responses have been documented in the HPI. ROS Other: All systems not noted in ROS Statement are negative. Past Medical History Past Medical History: Atrial Fibrillation, Hyperlipidemia, Hypertension, Osteoarthritis (OA), Sleep Apnea/CPAP/BIPAP Additional Past Medical History / Comment(s): ectopic , abnormal stress test. Hx. of A-Fib. History of Any Multi-Drug Resistant Organisms: None Reported Past Surgical History: Cardiac Ablation, Section, Cholecystectomy, Heart Catheterization, Orthopedic Surgery Additional Past Surgical History / Comment(s): eye surgery, R knee scope, L Rotator cuff. Past Anesthesia/Blood Transfusion Reactions: Postoperative Nausea & Vomiting (PONV) Additional Past Anesthesia/Blood Transfusion Reaction / Comment(s): Vomiting after anesthesia. Past Psychological History: No Psychological Hx Reported Smoking Status: Never smoker Past Alcohol Use History: None Reported Past Drug Use History: None Reported - Past Family History Mother Family Medical History: No Reported History General Exam - General Exam Comments Initial Comments: GENERAL: Patient is well-developed and well-nourished. Patient is nontoxic and well- hydrated and is in mild distress. ENT: Neck is soft and supple. No significant lymphadenopathy is noted. Oropharynx is clear. Moist mucous membranes. Neck has full range of motion without eliciting any pain. EYES: The sclera were anicteric and conjunctiva were pink and moist. Extraocular movements were intact and pupils were equal round and reactive to light. Eyelids were unremarkable. PULMONARY: Unlabored respirations. Good breath sounds bilaterally. No audible rales rhonchi or wheezing was noted. CARDIOVASCULAR: There is a regular rate and rhythm without any murmurs gallops or rubs. ABDOMEN: Soft and nontender with normal bowel sounds. SKIN: Skin is clear with no lesions or rashes and otherwise unremarkable. NEUROLOGIC: Patient is alert and oriented x3. Cranial nerves II through XII are grossly in tact. Motor and sensory are also intact. Normal speech, volume and content. Symmetrical smile. MUSCULOSKELETAL: Normal extremities with adequate strength and full range of motion. LYMPHATICS: No significant lymphadenopathy is noted PSYCHIATRIC: Normal psychiatric evaluation. Course Vital Signs 11/10/22 11/10/22 11/10/22 11:27 12:00 12:02 Temperature 97.1 F L Pulse Rate 60 Pulse Rate [ 76 Sitting Online Content Editor] Pulse Rate [ Standing Online Content Editor ] Pulse Rate [ 64 Supine Online Content Editor] Respiratory 18 Rate Blood Pressure 129/71 Blood Pressure 121/90 [Sitting] Blood Pressure [Standing] Blood Pressure 126/85 [Supine] O2 Sat by Pulse 99 96 96 Oximetry 11/10/22 12:04 Temperature Pulse Rate Pulse Rate [ Sitting Online Content Editor] Pulse Rate [ 91 Standing Online Content Editor ] Pulse Rate [ Supine Online Content Editor] Respiratory Rate Blood Pressure Blood Pressure [Sitting] Blood Pressure 125/80 [Standing] Blood Pressure [Supine] O2 Sat by Pulse 95 Oximetry Medical Decision Making - Medical Decision Making EKG was interpreted by myself. EKG shows a sinus rhythm with occasional PAC at 65 bpm RI interval 265 dresses 190 QT intervals 436 QTC is 4 patient's EKG shows no ST segment elevation or depression Was pt. sent in by a medical professional or institution (, PA, MAINTENANCE MECHANIC 2ND SHIFT, urgent care, hospital, or intermediate...) When possible be specific @ -[No] Did you speak to anyone other than the patient for history (EMS, parent, family, police, friend...)? What history was obtained from this source @ -[No] Did you review nursing and triage notes (agree or disagree)? Why? @ -[I reviewed and agree with nursing and triage notes] Were old charts reviewed (outside hosp., previous admission, EMS record, old EKG, old radiological studies, urgent care reports/EKG's, intermediate records)? Report findings @ -I reviewed prior lab work from prior charts on this patient Differential Diagnosis (chest pain, altered mental status, abdominal pain women, abdominal pain men, vaginal bleeding, weakness, fever, dyspnea, syncope, headache, dizziness, GI bleed, back pain, seizure, CVA, palpatations, mental health, musculoskeletal)? @ -Differential Syncope: Valvular disease, hypertrophic cardiomyopathy, pulmonary embolism, tamponade, tachycardia, bradycardia, [place], hypovolemia, hemorrhage, dissection, anemia, intracranial hemorrhage, seizure, hypoglycemia, carbon monoxide poisoning, this is not meant to be an all-inclusive list. EKG interpreted by me (3pts min.). @ -[As above] X-rays interpreted by me (1pt min.). @ -Chest x-ray shows no acute abnormality CT interpreted by me (1pt min.). @ -[None done] U/S interpreted by me (1pt. min.). @ -[None done] What testing was considered but not performed or refused? (CT, X-rays, U/S, labs)? Why? @ -[None] What meds were considered but not given or refused? Why? @ -[None] Did you discuss the management of the patient with other professionals (professionals i.e. , PA, MAINTENANCE MECHANIC 2ND SHIFT, lab, RT, psych nurse, social services assistant, medical billing representative, teacher, chief operations officer, complex case manager)? Give summary @ -[No] Was smoking cessation discussed for >3mins.? @ -[No] Was critical care preformed (if so, how long)? @ -[No] Were there social determinants of health that impacted care today? How? (Homelessness, low income, unemployed, alcoholism, drug addiction, transportation, low edu. Level, literacy, decrease access to med. care, fpc, rehab)? @ -[No] Was there de-escalation of care discussed even if they declined (Discuss DNR or withdrawal of care, Hospice)? DNR status @ -[No] What co-morbidities impacted this encounter? (DM, HTN, Smoking, COPD, CAD, Cancer, CVA, ARF, Chemo, Hep., AIDS, mental health diagnosis, sleep apnea, morbid obesity)? @ -[None] Was patient admitted / discharged? Hospital course, mention meds given and route, prescriptions, significant lab abnormalities, going to OR and other pertinent info. @ -Patient was seen in emergency department and worked up for near syncope. Patient was given 500 mL of normal saline given a low potassium and reevaluated and she was feeling better the lab work did not indicate any reason for the patient to have a syncopal episode x-ray of the chest was normal her vitals were stable throughout her course. Patient states this all began when she started diuretic so I instructed her to take half the amount of the diuretic daily and she will follow-up with water regulator and valve repairer Undiagnosed new problem with uncertain prognosis? @ -[No] Drug Therapy requiring intensive monitoring for toxicity (Heparin, Nitro, Ins ulin, Cardizem)? @ -[No] Were any procedures done? @ -[No] Diagnosis/symptom? @ -Near syncope Acute, or Chronic, or Acute on Chronic? @ -Acute Uncomplicated (without systemic symptoms) or Complicated (systemic symptoms)? @ -Complicated Side effects of treatment? @ -[No] Exacerbation, Progression, or Severe Exacerbation? @ -[No] Poses a threat to life or bodily function? How? (Chest pain, [place], [place], pneumonia, PE, COPD, DKA, ARF, appy, cholecystitis, CVA, Diverticulitis, Homicidal, Suicidal, threat to staff... and all critical care pts) @ -[No] Diagnosis/symptom? @ -Hyponatremia Acute, or Chronic, or Acute on Chronic? @ -Acute Uncomplicated (without systemic symptoms) or Complicated (systemic symptoms)? @ -Complicated Side effects of treatment? @ -[none] Exacerbation, Progression, or Severe Exacerbation] @ -[no] Poses a threat to life or bodily function? @ -[no] Diagnosis/symptom? @ -Hypokalemia Acute, or Chronic, or Acute on Chronic? @ -Acute Uncomplicated (without systemic symptoms) or Complicated (systemic symptoms)? @ -Complicated Side effects of treatment? @ -[none] Exacerbation, Progression, or Severe Exacerbation] @ -[no] Poses a threat to life or bodily function? @ -[no] - Lab Data Result diagrams: 11/10/22 12:00 11/10/22 12:00 Lab Results 11/10/22 11/10/22 11/10/22 Range/Units 12:00 12:00 12:00 WBC 7.5 (3.8-10.6) k/uL RBC 4.60 (3.80-5.40) m/uL Hgb 15.1 (11.4-16.0) gm/dL Hct 44.3 (34.0-46.0) % MCV 96.3 (80.0-100.0) fL MCH 32.8 (25.0-35.0) pg MCHC 34.0 (31.0-37.0) g/dL RDW 12.2 (11.5-15.5) % Plt Count 244 (150-450) k/uL MPV 8.8 Neutrophils % 71 % Lymphocytes % 18 % Monocytes % 6 % Eosinophils % 4 % Basophils % 0 % Neutrophils # 5.3 (1.3-7.7) k/uL Lymphocytes # 1.4 (1.0-4.8) k/uL Monocytes # 0.4 (0-1.0) k/uL Eosinophils # 0.3 (0-0.7) k/uL Basophils # 0.0 (0-0.2) k/uL PT 10.1 (9.0-12.0) sec INR 0.9 (<1.2) APTT 24.2 (22.0-30.0) sec Sodium (137-145) mmol/L Potassium (3.5-5.1) mmol/L Chloride (98-107) mmol/L Carbon Dioxide (22-30) mmol/L Anion Gap mmol/L BUN (7-17) mg/dL Creatinine (0.52-1.04) mg/dL Est GFR (CKD-EPI)AfAm (>60 ml/min/1.73 sqM) Est GFR (CKD-EPI)NonAf (>60 ml/min/1.73 sqM) Glucose (74-99) mg/dL Calcium (8.4-10.2) mg/dL Magnesium (1.6-2.3) mg/dL Total Bilirubin (0.2-1.3) mg/dL AST (14-36) U/L ALT (4-34) U/L Alkaline Phosphatase (38-126) U/L Troponin I (0.000-0.034) ng/mL NT-Pro-B Natriuret Pep pg/mL Total Protein (6.3-8.2) g/dL Albumin (3.5-5.0) g/dL Urine Color Light Yellow Urine Appearance Clear (Clear) Urine pH 6.5 (5.0-8.0) Ur Specific [place] 1.007 (1.001-1.035) Urine Protein Negative (Negative) Urine Glucose (UA) Negative (Negative) Urine Ketones Negative (Negative) Urine Blood Negative (Negative) Urine Nitrite Negative (Negative) Urine Bilirubin Negative (Negative) Urine Urobilinogen <2.0 (<2.0) mg/dL Ur Leukocyte Esterase Moderate H (Negative) Urine RBC 2 (0-5) /hpf Urine WBC 9 H (0-5) /hpf Ur Squamous Epith Cells 4 (0-4) /hpf Urine Mucus Occasional H (None) /hpf 11/10/22 11/10/22 11/10/22 Range/Units 12:00 12:00 12:00 WBC (3.8-10.6) k/uL RBC (3.80-5.40) m/uL Hgb (11.4-16.0) gm/dL Hct (34.0-46.0) % MCV (80.0-100.0) fL MCH (25.0-35.0) pg MCHC (31.0-37.0) g/dL RDW (11.5-15.5) % Plt Count (150-450) k/uL MPV Neutrophils % % Lymphocytes % % Monocytes % % Eosinophils % % Basophils % % Neutrophils # (1.3-7.7) k/uL Lymphocytes # (1.0-4.8) k/uL Monocytes # (0-1.0) k/uL Eosinophils # (0-0.7) k/uL Basophils # (0-0.2) k/uL PT (9.0-12.0) sec INR (<1.2) APTT (22.0-30.0) sec Sodium 130 L (137-145) mmol/L Potassium 3.4 L (3.5-5.1) mmol/L Chloride 93 L (98-107) mmol/L Carbon Dioxide 26 (22-30) mmol/L Anion Gap 11 mmol/L BUN 11 (7-17) mg/dL Creatinine 0.95 (0.52-1.04) mg/dL Est GFR (CKD-EPI)AfAm 72 (>60 ml/min/1.73 sqM) Est GFR (CKD-EPI)NonAf 62 (>60 ml/min/1.73 sqM) Glucose 132 H (74-99) mg/dL Calcium 9.3 (8.4-10.2) mg/dL Magnesium 1.9 (1.6-2.3) mg/dL Total Bilirubin 1.1 (0.2-1.3) mg/dL AST 26 (14-36) U/L ALT 21 (4-34) U/L Alkaline Phosphatase 112 (38-126) U/L Troponin I <0.012 (0.000-0.034) ng/mL NT-Pro-B Natriuret Pep 54 pg/mL Total Protein 7.4 (6.3-8.2) g/dL Albumin 4.5 (3.5-5.0) g/dL Urine Color Urine Appearance (Clear) Urine pH (5.0-8.0) Ur Specific [place] (1.001-1.035) Urine Protein (Negative) Urine Glucose (UA) (Negative) Urine Ketones (Negative) Urine Blood (Negative) Urine Nitrite (Negative) Urine Bilirubin (Negative) Urine Urobilinogen (<2.0) mg/dL Ur Leukocyte Esterase (Negative) Urine RBC (0-5) /hpf Urine WBC (0-5) /hpf Ur Squamous Epith Cells (0-4) /hpf Urine Mucus (None) /hpf Disposition Clinical Impression: Hypokalemia, Hyponatremia, Near syncope Disposition: HOME SELF-CARE Instructions (If sedation given, give patient instructions): Syncope (ED), Hyponatremia (ED), Hypokalemia (ED) Additional Instructions: Patient should take half the amount of the diuretic. Is patient prescribed a controlled substance at d/c from ED?: No Referrals: Trav Stern MD [Primary Care Provider] - 1-2 days Time of Disposition: 14:49
[2022-11-10 12:11] LABS: Basophils % (A) 0 %; Eosinophils # (A) 0.3 k/uL (0-0.7); Eosinophils % (A) 4 %; HCT 44.3 % (34.0-46.0); HGB 15.1 gm/dL (11.4-16.0); Lymphocytes # (A) 1.4 k/uL (1.0-4.8); Lymphocytes % (A) 18 %; MCH 32.8 pg (25.0-35.0); MCV 96.3 fL (80.0-100.0); Mean Platelet Volume 8.8; Monocytes # (A) 0.4 k/uL (0-1.0); Monocytes % (A) 6 %; Neutrophils # (A) 5.3 k/uL (1.3-7.7); Neutrophils % (A) 71 %; Platelet Count 244 k/uL (150-450); RDW 12.2 % (11.5-15.5); WBC 7.5 k/uL (3.8-10.6)
[2022-11-10 12:21] LABS: ALT 21 U/L (4-34); AST 26 U/L (14-36); African American GFR (CKD) 72 (>60 ml/min/1.73 sqM); Albumin 4.5 g/dL (3.5-5.0); Alkaline Phosphatase 112 U/L (38-126); Anion Gap 11 mmol/L; Blood Urea Nitrogen 11 mg/dL (7-17); Calcium 9.3 mg/dL (8.4-10.2); Carbon Dioxide 26 mmol/L (22-30); Chloride 93 mmol/L (98-107); Glucose 132 mg/dL (74-99); Magnesium 1.9 mg/dL (1.6-2.3); Non-African American GFR(CKD) 62 (>60 ml/min/1.73 sqM); Potassium 3.4 mmol/L (3.5-5.1); Sodium 130 mmol/L (137-145); Total Bilirubin 1.1 mg/dL (0.2-1.3); Total Protein 7.4 g/dL (6.3-8.2)
[2022-11-10 12:27] LABS: INR 0.9 (<1.2); Partial Thromboplastin Time 24.2 sec (22.0-30.0); Prothrombin Time 10.1 sec (9.0-12.0)
--- NOTE | 2022-11-10 12:51 | XR ---
EXAMINATION TYPE: XR chest 2V DATE OF EXAM: 11/10/2022 COMPARISON: 05/07/2021 INDICATION: Chest pain TECHNIQUE: Frontal and lateral views of the chest are obtained. FINDINGS: The heart size is normal. The pulmonary vasculature is normal. There is some linear opacity at the right lung base and infrahilar region on the left. Findings could be related to some platelike atelectasis. This was present on the right may be some scarring Lungs o therwise appear clear.. IMPRESSION: 1. Platelike atelectasis bilateral lung bases. Right linear opacity may be related to scarring.
[2022-11-10] MEDS ORDERED: POTASSIUM CHLORIDE ER 20 MEQ TAB.ER PO STA (13:46)
[2022-11-10] MEDS ORDERED: SODIUM CHLORIDE 0.9% 500 ML 500 ML IV ONE (13:46)
[2022-11-10 14:23] LABS: Appearance,Urine Clear (Clear); Bilirubin,Urine Negative (Negative); Blood,Urine Negative (Negative); Color,Urine Light Yellow; Glucose,Urine (UA) Negative (Negative); Ketones,Urine Negative (Negative); Leukocyte Esterase,Urine Moderate (Negative); Mucus,Urine Occasional /hpf; Nitrite,Urine Negative (Negative); PH, Urine 6.5 (5.0-8.0); Protein,Urine Negative (Negative); RBC,Urine 2 /hpf (0-5); Specific Gravity,Urine 1.007 (1.001-1.035); Squamous Epithelial Cell,Urine 4 /hpf (0-4); Urobilinogen,Urine <2.0 mg/dL (<2.0); WBC,Urine 9 /hpf (0-5)
[2022-11-10 15:25] VITALS: BP 134/78; PULSE 64; RESP 20; TEMP 97.6
== END 2022-11-10 15:40 | disposition home or self-care (01) ==
LOC: EC 11:22
DX: E87.1 Hypo-osmolality and hyponatremia (principal); E87.6 Hypokalemia; R55 Syncope and collapse; I10 Essential (primary) hypertension; I48.91 Unspecified atrial fibrillation; G47.30 Sleep apnea, unspecified; E78.5 Hyperlipidemia, unspecified; M19.90 Unspecified osteoarthritis, unspecified site; Z79.899 Other long term (current) drug therapy; Z88.5 Allergy status to narcotic agent; Z88.8 Allergy status to other drugs, medicaments and biological substances; Z90.49 Acquired absence of other specified parts of digestive tract
CPT/HCPCS: 36415; 71046; 80053; 81001; 83735; 83880; 84484; 85025; 85610; 85730; 87086; 93005; 99284

== ENCOUNTER → 2022-12-10 | Outpatient (CLI) | payer MEDICARE ==
--- NOTE | 2022-12-10 14:28 | P.PN ---
Subjective DATE: 12/10/2022 FOLLOW UP VISIT. Patient with obstructive sleep apnea hypopnea syndrome return to sleep center for follow-up visit. Information from previous visit have been reviewed. Patient is using PAP equipment every night for the whole night, getting PAP supplies in time. The patient does not have significant problems with the mask, PAP unit and humidification. [place] sleepiness scale is 2, which is normal. I checked information from PAP unit. PAP unit pressure 7-16, average 12.1 cm H2O. Usage is 100% and 93 93 % for more then 4 hours, average 6.5 hours per night. Leak is 7.6 l/m, which is in acceptable range. Apnea Hypopnea Index is increased to 9, which is a which lasts include central apnea hypopnea index 5.3. MEDICATIONS:1. Eliquis 5 mg twice a day 2. Atorvastatin 10 mg once a day During physical exam: GENERAL: A pleasant patient without any distress. VITAL SIGNS: BP 136/82, HR 72, RR 20 , weight 257.4, temperature 98.1, oxygen saturation at room air 95 % . HEENT: PERRLA, EOMI.low position of soft palate, Mallapati 3 . NECK: Supple. No JVD. LUNGS: Clear to percussion and to auscultation. Good air exchange. No wheezing or rhonchi. HEART: S1, S2 irrregular. ABDOMEN: Soft and nontender. Obese EXTREMITIES: No clubbing or cyanosis. DIRECTOR OF SOFTWARE ENGINEERING: Awake, alert, and oriented x3. No focal deficit. Impressions: 1. Obstructive and central sleep apnea-hypopnea syndrome in severe range, apnea-hypopnea index 42.5 with episodes of possible Aquiles-Reddy respiration by results of home sleep apnea test in 04/01/2021.. Patient demonstrated great compliance with treatment, benefiting from treatment, apnea-hypopnea index slightly increased to 9 incuding central apnea hypopnea index 5.3. 2. Pulmonary hypertension. 3. History of atrial fibrillation. 4. Hypertension. 5. Hyperlipidemia. 6. History of acid reflux. 7. Status post cholecystectomy. 8. Status post rotator cuff surgery. 9. Status post right knee arthroscopic surgery. I adjust level of humidity in CPAP unit up to 5 from 3. Plan: 1. Continue using PAP equipment every night for the whole night. I changed regimen of CPAP unit to the range 7-17 centimeters of water. 2. To change air filter at least 1-2 times per month. 3. PAP unit should stay lower then position of the head. 4. Advised patient to remove all remaining water from humidifier canister daily and make it dry after each usage. Refill canister with fresh distilled water before each usage. 5. Sleep hygiene with regular time in bed for at least 8 hours. 6. Precautions related to driving. No driving if feel any sleepiness. 7. I will maintain prescription for PAP supplies including mask, tube, filters. 8. Follow up visit in 2 months or earlier if patient has any problems. 9. Watching and losing weight. 10. We will consider repeat titration using BiPAP ST mode unit for correction of central abnormalities of respiration. Thank you very much for allowing me to participate in the management of your patient. Rafa Mann MD, PhD, FAASM. Diplomat of [place] [employer], Sleep Medicine Board by [place] [employer] Starting Gate Driver of [facility] [place] [id number]
== END ==
LOC: 3 N SLEEP 11:10
PROVIDERS: ATTEND Internal Medicine
DX: G47.33 Obstructive sleep apnea (adult) (pediatric) (principal); I27.20 Pulmonary hypertension, unspecified; I48.91 Unspecified atrial fibrillation; E78.5 Hyperlipidemia, unspecified; G47.31 Primary central sleep apnea; I10 Essential (primary) hypertension; K21.9 Gastro-esophageal reflux disease without esophagitis; Z79.01 Long term (current) use of anticoagulants; Z79.899 Other long term (current) drug therapy; Z90.49 Acquired absence of other specified parts of digestive tract; Z99.89 Dependence on other enabling machines and devices
CPT/HCPCS: 99212

== ENCOUNTER → 2023-04-15 | Outpatient (CLI) | payer MEDICARE ==
--- NOTE | 2023-04-15 11:08 | P.PN ---
Subjective DATE: 03/16/2023 FOLLOW UP VISIT. Patient with obstructive sleep apnea hypopnea syndrome return to sleep center for follow-up visit. Information from previous visit have been reviewed. Patient is using PAP equipment every night for the whole night, getting PAP supplies in time. Patient feels better with using CPAP. The patient does not have significant problems with the mask, PAP unit and humidification. [place] sleepiness scale is 2. I checked information from PAP unit. PAP unit pressure 7-16, average 12.4 cm H2O. Usage is 97% and 87 % for more then 4 hours, average 5.3 hours per night. Leak is 20.1 l/m, which is in acceptable range. Apnea Hypopnea Index is increased to 10, which include central apnea index 5.4, obstructive apnea hypopnea index is 2.7. MEDICATIONS:1. Chlorthalidone 25 mg once a day 2. Eliquis 5 mg twice a day 3. Atorvastatin 20 mg once a day During physical exam: GENERAL: A pleasant patient without any distress. VITAL SIGNS: BP 133/82, HR 74, RR 16 , weight 245, temperature 98.2, oxygen saturation at room air 96 % . HEENT: PERRLA, EOMI.low position of soft palate, Mallapati 3 . NECK: Supple. No JVD. LUNGS: Clear to percussion and to auscultation. Good air exchange. No wheezing or rhonchi. HEART: S1, S2 regular. ABDOMEN: Soft and nontender. Obese EXTREMITIES: No clubbing or cyanosis. VP EMERGING MEDIA: Awake, alert, and oriented x3. No focal deficit. Impressions: 1. Obstructive and central sleep apnea-hypopnea syndrome. Patient demonstrated great compliance with treatment for the last months, benefiting from treatment. Some central apneas presents following information from CPAP unit. During the diagnostic sleep study on 04/01/2021 apnea-hypopnea index was 42.5. 2. History of pulmonary hypertension. 3. Hypertension. 4. History of atrial fibrillation. 5. History of acid reflux. 6. Status post right knee arthroscopic surgery. 7. Status post cholecystectomy. 8. Status post rotator cuff surgery. Plan: 1. Continue using PAP equipment every night for the whole night. 2. To change air filter at least 1-2 times per month. 3. PAP unit should stay lower then position of the head. 4. Advised patient to remove all remaining water from humidifier canister daily and make it dry after each usage. Refill canister with fresh distilled water before each usage. 5. Sleep hygiene with regular time in bed for at least 8 hours. 6. Precautions related to driving. No driving if feel any sleepiness. 7. I will maintain prescription for PAP supplies including mask, tube, filters. 8. Follow up visit in 4 months or earlier if patient has any problems. 9. Watching and losing weight. 10. We may consider treatment with BiPAP ST mode, if patient will continue to have central apneas and it will be clinically significant. Thank you very much for allowing me to participate in the management of your patient. Rafa Mann MD, PhD, FAASM. Diplomat of [place] [employer], Sleep Medicine Board by [employer] of [employer] Medicine Ip Paralegal of [facility] [place]
== END ==
LOC: 3 N SLEEP 10:33
PROVIDERS: ATTEND Internal Medicine
DX: G47.33 Obstructive sleep apnea (adult) (pediatric) (principal); I10 Essential (primary) hypertension; I27.20 Pulmonary hypertension, unspecified; I48.91 Unspecified atrial fibrillation; K21.9 Gastro-esophageal reflux disease without esophagitis; G47.31 Primary central sleep apnea; Z90.49 Acquired absence of other specified parts of digestive tract; Z96.651 Presence of right artificial knee joint; Z98.890 Other specified postprocedural states; Z99.89 Dependence on other enabling machines and devices; Z88.5 Allergy status to narcotic agent
CPT/HCPCS: 99212

== ENCOUNTER → 2023-05-26 | Outpatient (CLI) | payer MEDICARE ==
[2023-05-26 15:14] LABS: Blood Urea Nitrogen 11.2 mg/dL (9.0-27.0); Glucose 104 mg/dL (70-110)
[2023-05-26 15:15] LABS: Calcium 9.8 mg/dL (8.7-10.3); Carbon Dioxide 25.5 mmol/L (21.6-31.8); Chloride 104 mmol/L (96-109); Potassium 4.1 mmol/L (3.5-5.5); Sodium 141 mmol/L (135-145)
== END | disposition home or self-care (01) ==
LOC: LABWHC1 10:20
PROVIDERS: ATTEND Internal Medicine Clinical Cardiac Electrophysiology
DX: I10 Essential (primary) hypertension (principal)
CPT/HCPCS: 36415; 80048

== ENCOUNTER → 2023-05-26 | Outpatient (CLI) | payer MEDICARE ==
--- NOTE | 2023-05-27 20:22 | MM ---
Reason for Exam: Screening (asymptomatic). Last mammogram was performed 2 year(s) and 10 month(s) ago. Patient History: Menarche at age 12. First Full-Term at age 26. Postmenopausal. Hormonal Contraceptives for 6 years from age 19 until age 25. Maternal grandmother had breast cancer, age 68. Risk Values: Nicole 5 year model risk: 1.9%. NCI Lifetime model risk: 6.2%. Prior Study Comparison: 12/02/2016 Right Diagnostic Mammogram, [facility]. 01/13/2018 Bilateral Screening Mammogram, [facility]. 07/17/2020 Bilateral Screening Mammogram, [facility]. Tissue Density: The breast tissue is heterogeneously dense. This may lower the sensitivity of mammography. Findings: Analyzed By CAD. There is no suspicious group of microcalcifications or new suspicious mass in either breast. Overall Assessment: Benign, BI-RAD 2 Management: Screening Mammogram of both breasts in 1 year. . Patient should continue monthly self-breast exams. A clinical breast exam by your physician is recommended on an annual basis. This exam should not preclude additional follow-up of suspicious palpable abnormalities. Note on Nicole scores and lifetime risk: 1. A Nicole score greater than 3% is considered moderate risk. If this is the case, consider specialist referral to assess eligibility for a risk reducing agent. 2. If overall lifetime risk for the development of breast cancer is 20% or higher, the patient may qualify for future screening with alternating mammogram and breast MRI. Electronically signed and approved by: Amado Stone M.D. Radiologist
== END | disposition home or self-care (01) ==
LOC: RADMAMWWP 09:59
PROVIDERS: ATTEND Internal Medicine
DX: Z12.31 Encounter for screening mammogram for malignant neoplasm of breast (principal); Z78.0 Asymptomatic menopausal state; Z80.3 Family history of malignant neoplasm of breast
CPT/HCPCS: 77063; 77067

== ENCOUNTER → 2023-08-18 | Outpatient (CLI) | payer MEDICARE ==
[2023-08-18 11:39] VITALS: BP 124/68; PULSE 61; RESP 16; TEMP 97.7
--- NOTE | 2023-08-18 12:36 | P.PN ---
Subjective DATE: 08/18/2023 FOLLOW UP VISIT. Patient with obstructive sleep apnea hypopnea syndrome return to sleep center for follow-up visit. Information from previous visit have been reviewed. Patient is using PAP equipment every night for the whole night, getting PAP supplies in time. Patient has episodes when water is in the mask. [place] sleepiness scale is 3, which is normal. I checked information from PAP unit. PAP unit pressure 7-17, average 12.0 cm H2O. Usage is 100% and 93% for more then 4 hours, average 5.75 hours per night. Leak is 14.3 l/m, which is in acceptable range. Apnea Hypopnea Index is 7.4, which includes central apnea hypopnea index 4.6 and obstructive 1.5. It was improved comparing with previous visit. Episodes of [place]-Reddy respiration according to machine reading average 49 minutes. MEDICATIONS:1. Losartan 25 mg once a day 2. Chlorthalidone 25 mg once a day 3. Eliquis 5 mg once a day 4. Atorvastatin 10 mg once a day 5. Metoprolol 25 mg once a day During physical exam: GENERAL: A pleasant patient without any distress. VITAL SIGNS: Please see below, weight 244.4 pounds, which is about the same as during previous visit. HEENT: PERRLA, EOMI.low position of soft palate, Mallapati 3 . NECK: Supple. No JVD. LUNGS: Clear to percussion and to auscultation. Good air exchange. No wheezing or rhonchi. HEART: S1, S2 regular. ABDOMEN: Soft and nontender. Slightly obese EXTREMITIES: No clubbing or cyanosis. INVERTEBRATE PALEONTOLOGIST: Awake, alert, and oriented x3. No focal deficit. I teach patient how to regulate temperature in humidifier and in the tube. Presently tube goes down to the patient mask. Impressions: 1. Obstructive sleep apnea-hypopnea syndrome. Patient demonstrated great compliance with treatment, benefiting from treatment, but some central apneas present and according to the machine patient has episodes of Aquiles-Reddy respiration for about 49 minutes per night which is 13% of time. 2. Hypertension. 3. History of pulmonary hypertension. 4. History of atrial fibrillation. 5. History of acid reflux. 6. Status post right knee arthroscopic surgery. 7. Status post cholecystectomy. 8. Status post rotator cuff surgery. 9. Status post recent loop recorder placement. I changed range of the pressure down to the level 5 to 14 cm of water, level of humidity was decreased to 2, patient will change position of his CPAP unit down, ramp to automatic level it was off. Plan: 1. Continue using PAP equipment every night for the whole night. 2. To change air filter at least 1-2 times per month. 3. PAP unit should stay lower then position of the head. 4. Advised patient to remove all remaining water from humidifier canister daily and make it dry after each usage. Refill canister with fresh distilled water before each usage. 5. Sleep hygiene with regular time in bed for at least 8 hours. 6. Precautions related to driving. No driving if feel any sleepiness. 7. I will maintain prescription for PAP supplies including mask, tube, filters. 8. Follow up visit in 3 months or earlier if patient has any problems. 9. Watching and losing weight. 10. We may consider treatment with BiPAP ST mode or ASV, if it will be clinically necessary. Thank you very much for allowing me to participate in the management of your patient. Rafa Mann MD, PhD, FAASM. Diplomat of [place] [employer] Sleep Medicine, Sleep Medicine Board by [place] [employer] Medicine Watch Technician of [facility] [place] Objective - Vital Signs Vital signs: Vital Signs Temp 97.7 F 08/18/23 11:25 Pulse 61 08/18/23 11:25 Resp 16 08/18/23 11:25 BP 124/68 08/18/23 11:25 Pulse Ox 98 08/18/23 11:25 FiO2
== END | disposition home or self-care (01) ==
LOC: 3 N SLEEP 11:09
PROVIDERS: ATTEND Internal Medicine
DX: G47.33 Obstructive sleep apnea (adult) (pediatric) (principal); E66.01 Morbid (severe) obesity due to excess calories; I10 Essential (primary) hypertension; I27.20 Pulmonary hypertension, unspecified; I48.91 Unspecified atrial fibrillation; K21.9 Gastro-esophageal reflux disease without esophagitis; Z90.49 Acquired absence of other specified parts of digestive tract; Z98.890 Other specified postprocedural states; Z99.89 Dependence on other enabling machines and devices; Z79.899 Other long term (current) drug therapy; Z79.01 Long term (current) use of anticoagulants; Z88.5 Allergy status to narcotic agent
CPT/HCPCS: 99212

== ENCOUNTER → 2023-09-27 | Outpatient (CLI) | payer MEDICARE ==
--- NOTE | 2023-09-27 13:21 | US ---
EXAMINATION TYPE: US kidneys/renal and bladder DATE OF EXAM: 09/27/2023 COMPARISON: US CLINICAL INDICATION: Female, 68 years old with history of N18.30 CKD STAGE 3; CKD EXAM MEASUREMENTS: Right Kidney: 9.7 x 4.1 x 4.5 cm Left Kidney: 10.6 x 5.1 x 5.3 cm Right Kidney: No hydronephrosis or masses seen Left Kidney: No hydronephrosis or masses seen Bladder: wnl Bilateral Jets seen: No IMPRESSION: 1. Unremarkable renal ultrasound
[2023-09-27 18:56] LABS: BUN/Creat Ratio 13.67 Ratio (12.00-20.00); Blood Urea Nitrogen 12.3 mg/dL (9.0-27.0); Calcium 9.2 mg/dL (8.7-10.3); Carbon Dioxide 27.4 mmol/L (21.6-31.8); Chloride 93 mmol/L (96-109); Glucose 88 mg/dL (70-110); Magnesium 1.8 mg/dL (1.5-2.4); Phosphorus 3.3 mg/dL (2.4-5.1); Potassium 3.4 mmol/L (3.5-5.5); Sodium 131 mmol/L (135-145)
== END | disposition home or self-care (01) ==
LOC: RADUSWWP 12:53
PROVIDERS: ATTEND Internal Medicine
DX: I12.9 Hypertensive chronic kidney disease with stage 1 through stage 4 chronic kidney disease, or unspecified chronic kidney disease (principal); N18.30 Chronic kidney disease, stage 3 unspecified; E87.8 Other disorders of electrolyte and fluid balance, not elsewhere classified
CPT/HCPCS: 76770; 80048; 83735; 83970; 84100

== ENCOUNTER → 2023-12-02 | Outpatient (CLI) | payer MEDICARE ==
[2023-12-02 12:04] VITALS: BP 114/75; PULSE 64; RESP 16; TEMP 98.2
--- NOTE | 2023-12-02 12:33 | P.PROGSL ---
Subjective DATE: 12/02/2023 FOLLOW UP VISIT. Patient with obstructive sleep apnea hypopnea syndrome return to sleep center for follow-up visit. Information from previous visit have been reviewed. Patient is using PAP equipment every night for the whole night, getting PAP supplies in time. The patient does not have significant problems with the mask, PAP unit and humidification. [place] sleepiness scale is 1, which is perfect. I checked information from PAP unit. PAP unit pressure 5-14, average 10.7 cm H2O. Usage is 90% and 67% for more then 4 hours, average 4.75 hours per night. Leak is 6 l/m, which is in acceptable range. Apnea Hypopnea Index is 3.6, which is normal and showed improvement comparing with the previous visit when it was 7.4. MEDICATIONS have been reviewed, please see below. During physical exam: GENERAL: A pleasant patient without any distress. VITAL SIGNS: Please see below, weight is 246 lbs. HEENT: PERRLA, EOMI.low position of soft palate, Mallapati 3. NECK: Supple. No JVD. LUNGS: Clear to percussion and to auscultation. Good air exchange. No wheezing or rhonchi. HEART: S1, S2 regular. ABDOMEN: Soft and nontender. Obese EXTREMITIES: No clubbing or cyanosis. SOLIDWORKS DESIGNER: Awake, alert, and oriented x3. No focal deficit. Impressions: 1. Obstructive sleep apnea-hypopnea syndrome. Patient demonstrated great comp liance with treatment, benefiting from treatment. 2. Obesity, BMI 39.7. 3. History of atrial fibrillation, patient still has periodically episodes of atrial fibrillation. 4. Hypertension. 5. History of pulmonary hypertension. 6. History of acid reflux. 7. Status post right knee arthroscopic surgery. 8. Status post loop recorder placement. 9. Status post cholecystectomy. 10. Status post rotator cuff surgery. Plan: 1. Continue using PAP equipment every night for the whole night. 2. Sleep hygiene with regular time in bed for at least 7.5-8 hours 3. PAP unit should stay lower then position of the head. 4. Advised patient to remove all remaining water from humidifier canister daily and make it dry after each usage. Refill canister with fresh distilled water before each usage. 5. Watching weight. 6. Precautions related to driving. No driving if feel any sleepiness. 7. I will maintain prescription for PAP supplies including mask, tube, filters. 8. Follow up visit in 6 months or earlier if patient has any problems. Thank you very much for allowing me to participate in the management of your patient. Rafa Mann MD, PhD, FAASM. Diplomat of [place] [employer] Sleep Medicine, Sleep Medicine Board by [place] [employer] Keyboard Teacher of [facility] [place] cc: Trav Stern MD Objective - Vital Signs Vital Signs: Vital Signs Temp 98.2 F 12/02/23 12:03 Pulse 64 12/02/23 12:03 Resp 16 12/02/23 12:03 BP 114/75 12/02/23 12:03 Pulse Ox 97 12/02/23 12:03 FiO2 Intake & Output 12/01/23 12/02/23 12/02/23 18:59 06:59 18:59 Weight 111.584 kg Home Medications: Home Medications Medication Instructions Recorded Confirmed Type Apixaban [Eliquis] 5 mg PO BID 04/01/21 12/02/23 History Atorvastatin [Lipitor] 10 mg PO HS 04/01/21 12/02/23 History Losartan Potassium [Cozaar] 25 mg PO HS 10/26/22 12/02/23 History Triamterene/Hydrochlorothiazid 1 tab PO DAILY 11/10/22 11/10/22 History [Triamterene-Hctz 37.5-25 mg Tb] Chlorthalidone 25 mg PO DAILY 12/02/23 12/02/23 History Metoprolol Succinate [Kapspargo 25 mg PO DAILY 12/02/23 12/02/23 History Sprinkle]
== END ==
LOC: 3 N SLEEP 11:35
PROVIDERS: ATTEND Internal Medicine
DX: G47.33 Obstructive sleep apnea (adult) (pediatric) (principal); E66.9 Obesity, unspecified; I48.91 Unspecified atrial fibrillation; I10 Essential (primary) hypertension; I27.20 Pulmonary hypertension, unspecified; Z98.890 Other specified postprocedural states; Z90.49 Acquired absence of other specified parts of digestive tract; Z95.818 Presence of other cardiac implants and grafts; Z99.89 Dependence on other enabling machines and devices; Z87.19 Personal history of other diseases of the digestive system; Z79.01 Long term (current) use of anticoagulants; Z79.899 Other long term (current) drug therapy; Z68.39 Body mass index [BMI] 39.0-39.9, adult; Z88.5 Allergy status to narcotic agent
CPT/HCPCS: 99212

== ENCOUNTER → 2024-05-25 | Outpatient (CLI) | payer MEDICARE ==
--- NOTE | 2024-05-26 17:49 | XR ---
EXAMINATION TYPE: XR cervical spine comp DATE OF EXAM: 05/25/2024 11:03 AM COMPARISON: None. CLINICAL INDICATION: Female, 68 years old with history of M54.2 cervicalgia, pain TECHNIQUE: 5 view(s) obtained. FINDINGS: Right C5-6 severe foraminal stenosis is present. Moderate left foraminal narrowing is present at C5-6 . Prevertebral space is normal. Disc space narrowing is present posteriorly C3-4 C4-5 and diffusely C 5-6 and C6-7. Posterior spinal lamellar line is intact. The odontoid is nondiagnostic due to overlyin g maxilla. IMPRESSION: 1. Foraminal narrowing greatest on the right at C5-6. Correlate with radicular symptoms. 2. Degenerative disc changes greatest at C5-6 C6-7. [facility], Workstation: [facility], 05/26/2024 5:47 PM
== END | disposition home or self-care (01) ==
LOC: RADXRMAIN 10:41
PROVIDERS: ATTEND Internal Medicine
DX: M50.80 Other cervical disc disorders, unspecified cervical region (principal); M47.22 Other spondylosis with radiculopathy, cervical region; M48.02 Spinal stenosis, cervical region
CPT/HCPCS: 72050

== ENCOUNTER 2024-06-28 18:15 | Observation (INO) | payer MEDICARE ==
[2024-06-28 19:15] LABS: Basophils % (A) 0 %; Eosinophils # (A) 0.2 k/uL (0-0.7); Eosinophils % (A) 2 %; HCT 43.9 % (34.0-46.0); HGB 14.1 gm/dL (11.4-16.0); Lymphocytes # (A) 1.8 k/uL (1.0-4.8); Lymphocytes % (A) 21 %; MCH 32.1 pg (25.0-35.0); MCHC 32.2 g/dL (31.0-37.0); MCV 99.7 fL (80.0-100.0); Mean Platelet Volume 8.4; Monocytes # (A) 0.5 k/uL (0-1.0); Monocytes % (A) 6 %; Neutrophils # (A) 6.1 k/uL (1.3-7.7); Neutrophils % (A) 70 %; Platelet Count 249 k/uL (150-450); RBC 4.41 m/uL (3.80-5.40); RDW 12.1 % (11.5-15.5); WBC 8.7 k/uL (3.8-10.6)
[2024-06-28 19:29] LABS: ALT 20 U/L (4-34); AST 25 U/L (14-36); African American GFR (CKD) 50 (>60 ml/min/1.73 sqM); Albumin 4.7 g/dL (3.5-5.0); Alkaline Phosphatase 95 U/L (38-126); Anion Gap 10 mmol/L; Blood Urea Nitrogen 17 mg/dL (7-17); Calcium 9.7 mg/dL (8.4-10.2); Carbon Dioxide 22 mmol/L (22-30); Chloride 102 mmol/L (98-107); Glucose 99 mg/dL (74-99); Magnesium 2.1 mg/dL (1.6-2.3); Non-African American GFR(CKD) 43 (>60 ml/min/1.73 sqM); Potassium 4.7 mmol/L (3.5-5.1); Sodium 134 mmol/L (137-145); Total Protein 7.4 g/dL (6.3-8.2)
[2024-06-28 19:30] LABS: INR 0.9 (<1.2); Partial Thromboplastin Time 20.8 sec (22.0-30.0); Prothrombin Time 10.4 sec (10.0-12.5)
--- NOTE | 2024-06-28 19:36 | XR ---
EXAMINATION TYPE: XR chest 2V DATE OF EXAM: 06/28/2024 7:23 PM COMPARISON: 11/10/2022 CLINICAL INDICATION: Female, 68 years old with history of dysrhythmia, TECHNIQUE: XR chest 2V view(s) obtained. FINDINGS: The heart size is normal. The pulmonary vasculature is normal. There is some linear opacity at the left base. Correlate for atelectasis. Some linear opacity is also present at the right base present previously. Consider scarring and atelectasis. IMPRESSION: 1. Bibasilar platelike atelectasis versus scarring [facility], , 06/28/2024 7:34 PM
[2024-06-28] MEDS ORDERED: NALOXONE 0.4 MG/ML 1 ML VIAL IV PRN (21:45)
--- NOTE | 2024-06-28 21:45 | ED ---
Arrhythmia/Palpitations HPI - General Chief Complaint: Arrhythmia/Palpitations Stated Complaint: heart issue Time Seen by Provider: 06/28/24 18:33 Source: patient, family Mode of arrival: ambulatory Limitations: no limitations - History of Present Illness Initial Comments: 68-year-old female presents emergency department reporting shortness of breath, especially with exertion. Patient has a history of A-fib. She had an ablation. Approximately 3 weeks ago the patient was seen in her primary care office and was found to be in A-fib. 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 They did place her on flecainide to help control her heart rate. Patient states that she has been taking the medication as it is instructed but continues to be short of breath. Today she was unable to walk through the store without having to stop. She denies chest pain. Her heart rate and it has been extremely irregular anywhere from 80-140. Patient is anticoagulated on Eliquis. She denies any fevers, chills or cough. No other alleviating, precipitating or modifying factors - Related Data Home Medications Medication Instructions Recorded Confirmed Apixaban [Eliquis] 5 mg PO BID 04/01/21 06/28/24 Atorvastatin [Lipitor] 10 mg PO HS 04/01/21 06/28/24 Flecainide [Tambocor] 50 mg PO Q12HR 06/28/24 06/28/24 Metoprolol Succinate (ER) [Toprol 25 mg PO HS 06/28/24 06/28/24 XL] Spironolactone 50 mg PO DAILY 06/28/24 06/28/24 Previous Rx's Medication Instructions Recorded Losartan [Cozaar] 50 mg PO DAILY #0 06/30/24 Allergies Allergy/AdvReac Type Severity Reaction Status Date / Time hydrocodone [From Vicodin] Allergy Unknown Verified 06/28/24 20:10 fentanyl AdvReac Vomiting Verified 06/28/24 20:10 Review of Systems ROS Statement: Those systems with pertinent positive or pertinent negative responses have been documented in the HPI. ROS Other: All systems not noted in ROS Statement are negative. Past Medical History Past Medical History: Atrial Fibrillation, Hyperlipidemia, Hypertension, Osteoarthritis (OA), Sleep Apnea/CPAP/BIPAP Additional Past Medical History / Comment(s): ECtopic , abnormal stress test. Hx. of A-Fib., LOOP MONITOR PUT IN ON 2023 History of Any Multi-Drug Resistant Organisms: None Reported Past Surgical History: Cardiac Ablation, Section, Cholecystectomy, Heart Catheterization, Orthopedic Surgery Additional Past Surgical History / Comment(s): eye surgery, R knee scope, L Rotator cuff., LOOP MONITOR, COLONOSCOPY 2023(POLYPS) atrial ablation Past Anesthesia/Blood Transfusion Reactions: Postoperative Nausea & Vomiting (PONV) Additional Past Anesthesia/Blood Transfusion Reaction / Comment(s): Vomiting after anesthesia. Past Psychological History: No Psychological Hx Reported Smoking Status: Never smoker Past Alcohol Use History: None Reported Past Drug Use History: None Reported - Past Family History Mother Family Medical History: No Reported History General Exam Limitations: no limitations General appearance: alert, in no apparent distress Head exam: Present: atraumatic, normocephalic, normal inspection Eye exam: Present: normal appearance, PERRL, EOMI. Absent: scleral icterus, conjunctival injection, periorbital swelling ENT exam: Present: normal exam, mucous membranes moist Neck exam: Present: normal inspection. Absent: tenderness, meningismus, lymphadenopathy Respiratory exam: Present: normal lung sounds bilaterally. Absent: respiratory distress, wheezes, rales, rhonchi, stridor Cardiovascular Exam: Present: tachycardia, irregular rhythm, normal heart sounds. Absent: systolic murmur, diastolic murmur, rubs, gallop, clicks GI/Abdominal exam: Present: soft, normal bowel sounds. Absent: distended, tenderness, guarding, rebound, rigid Extremities exam: Present: normal inspection, full ROM, normal capillary refill. Absent: tenderness, pedal edema, joint swelling, calf tenderness Back exam: Present: normal inspection Neurological exam: Present: alert, oriented X3, CN II-XII intact Psychiatric exam: Present: normal affect, normal mood Skin exam: Present: warm, dry, intact, normal color. Absent: rash Course Vital Signs 06/28/24 06/28/24 06/28/24 18:19 19:32 22:52 Temperature 97.9 F 98.0 F Pulse Rate 79 100 103 H Respiratory 20 Rate Blood Pressure 149/93 111/80 126/75 O2 Sat by Pulse 99 94 L 96 Oximetry 06/28/24 06/28/24 06/29/24 23:24 23:31 00:00 Temperature Pulse Rate 53 L 112 H 80 Respiratory 16 Rate Blood Pressure 143/80 119/78 113/60 O2 Sat by Pulse 94 L 96 95 Oximetry 06/29/24 06/29/24 06/29/24 01:12 02:00 03:00 Temperature Pulse Rate 81 70 68 Respiratory Rate Blood Pressure 104/68 101/62 112/74 O2 Sat by Pulse 96 94 L Oximetry 06/29/24 06/29/24 06/29/24 04:00 06:17 09:26 Temperature 97.7 F 98 F Pulse Rate 75 89 87 Respiratory 18 16 Rate Blood Pressure 116/78 109/69 115/83 O2 Sat by Pulse 97 95 97 Oximetry 06/29/24 13:14 Temperature 98 F Pulse Rate 76 Respiratory 16 Rate Blood Pressure 107/61 O2 Sat by Pulse 95 Oximetry Medical Decision Making - Medical Decision Making Was pt. sent in by a medical professional or institution (, PA, WOOD SHINGLE ROOFER, urgent care, hospital, or halfway...) When possible be specific @ -No Did you speak to anyone other than the patient for history (EMS, parent, family, police, friend...)? What history was obtained from this source @ -Spoke with daughter for history Did you review nursing and triage notes (agree or disagree)? Why? @ -I reviewed and agree with nursing and triage notes Were old charts reviewed (outside hosp., previous admission, EMS record, old EKG, old radiological studies, urgent care reports/EKG's, halfway records)? Report findings @ -No old charts were reviewed Differential Diagnosis (chest pain, altered mental status, abdominal pain women, abdominal pain men, vaginal bleeding, weakness, fever, dyspnea, syncope, headache, dizziness, GI bleed, back pain, seizure, CVA, palpatations, mental health, musculoskeletal)? @ -Differential Palpitations Ventricular arrhythmias, atrial arrhythmias, myocardial infarction, anemia, thyrotoxicosis, electrolyte imbalance, hypokalemia, pulmonary embolism, p ulmonary disease, drugs, alcohol, anxiety, stress.... This is not meant to be an all-inclusive list. EKG interpreted by me (3pts min.). @ -Yes and demonstrates atrial flutter with a rate of 116. QRS 105. QTc of 399. No acute ST segment elevations or depressions X-rays interpreted by me (1pt min.). @ -Yes and demonstrates no acute process CT interpreted by me (1pt min.). @ -None done U/S interpreted by me (1pt. min.). @ -None done What testing was considered but not performed or refused? (CT, X-rays, U/S, labs)? Why? @ -None What meds were considered but not given or refused? Why? @ -None Did you discuss the management of the patient with other professionals (professionals i.e. Dr., PA, WOOD SHINGLE ROOFER, lab, RT, psych nurse, rn social services, deputy court, teacher, training officer, case finishing machine adjuster)? Give summary @ -Spoke with Dr. Stern for the admission Was smoking cessation discussed for >3mins.? @ -No Was critical care preformed (if so, how long)? @ -Yes, 35 minutes for rapid A-fib management Were there social determinants of health that impacted care today? How? (Homelessness, low income, unemployed, alcoholism, drug addiction, transportation, low edu. Level, literacy, decrease access to med. care, prison, rehab)? @ -No Was there de-escalation of care discussed even if they declined (Discuss DNR or withdrawal of care, Hospice)? DNR status @ -No What co-morbidities impacted this encounter? (DM, HTN, Smoking, COPD, CAD, Cancer, CVA, ARF, Chemo, Hep., AIDS, mental health diagnosis, sleep apnea, morbid obesity)? @ -A-fib Was patient admitted / discharged? Hospital course, mention meds given and route, prescriptions, significant lab abnormalities, going to OR and other pertinent info. @ -Upon arrival patient seen and evaluated in room 20. Thorough history and physical exam was performed. IV access was established. Laboratory studies are conducted. Twelve-lead EKG demonstrates atrial flutter with a rapid rate. I did initiate the patient on some Cardizem for rate control. Recommended admission for cardiology consultation as the recent medication changes are not assisting the patient and her rate control. Spoke with Dr. Stern for the admission Undiagnosed new problem with uncertain prognosis? @ -No Drug Therapy requiring intensive monitoring for toxicity (Heparin, Nitro, Insulin, Cardizem)? @ -Cardizem Were any procedures done? @ -No Diagnosis/symptom? @ -Acute respiratory insufficiency, atrial flutter with rapid ventricular rate Acute, or Chronic, or Acute on Chronic? @ -Acute on chronic Uncomplicated (without systemic symptoms) or Complicated (systemic symptoms)? @ -Complicated Side effects of treatment? @ -No Exacerbation, Progression, or Severe Exacerbation? @ -Yes Poses a threat to life or bodily function? How? (Chest pain, [place], [place], pneumonia, PE, COPD, DKA, ARF, appy, cholecystitis, CVA, Diverticulitis, Homicidal, Suicidal, threat to staff... and all critical care pts) @ -Yes as patient has rapid heart rate - Lab Data Result diagrams: 06/29/24 05:46 06/29/24 05:46 Lab Results 06/28/24 06/28/24 06/28/24 Range/Units 18:49 18:49 18:49 WBC 8.7 (3.8-10.6) k/uL RBC 4.41 (3.80-5.40) m/uL Hgb 14.1 (11.4-16.0) gm/dL Hct 43.9 (34.0-46.0) % MCV 99.7 (80.0-100.0) fL MCH 32.1 (25.0-35.0) pg MCHC 32.2 (31.0-37.0) g/dL RDW 12.1 (11.5-15.5) % Plt Count 249 (150-450) k/uL MPV 8.4 Neutrophils % 70 % Lymphocytes % 21 % Monocytes % 6 % Eosinophils % 2 % Basophils % 0 % Neutrophils # 6.1 (1.3-7.7) k/uL Lymphocytes # 1.8 (1.0-4.8) k/uL Monocytes # 0.5 (0-1.0) k/uL Eosinophils # 0.2 (0-0.7) k/uL Basophils # 0.0 (0-0.2) k/uL PT 10.4 (10.0-12.5) sec INR 0.9 (<1.2) APTT 20.8 L (22.0-30.0) sec Sodium 134 L (137-145) mmol/L Potassium 4.7 (3.5-5.1) mmol/L Chloride 102 (98-107) mmol/L Carbon Dioxide 22 (22-30) mmol/L Anion Gap 10 mmol/L BUN 17 (7-17) mg/dL Creatinine 1.28 H (0.52-1.04) mg/dL Est GFR (CKD-EPI)AfAm 50 (>60 ml/min/1.73 sqM) Est GFR (CKD-EPI)NonAf 43 (>60 ml/min/1.73 sqM) Glucose 99 (74-99) mg/dL Calcium 9.7 (8.4-10.2) mg/dL Magnesium 2.1 (1.6-2.3) mg/dL Total Bilirubin 1.0 (0.2-1.3) mg/dL AST 25 (14-36) U/L ALT 20 (4-34) U/L Alkaline Phosphatase 95 (38-126) U/L Troponin I (0.000-0.034) ng/mL NT-Pro-B Natriuret Pep pg/mL Total Protein 7.4 (6.3-8.2) g/dL Albumin 4.7 (3.5-5.0) g/dL 06/28/24 06/28/24 Range/Units 18:49 19:16 WBC (3.8-10.6) k/uL RBC (3.80-5.40) m/uL Hgb (11.4-16.0) gm/dL Hct (34.0-46.0) % MCV (80.0-100.0) fL MCH (25.0-35.0) pg MCHC (31.0-37.0) g/dL RDW (11.5-15.5) % Plt Count (150-450) k/uL MPV Neutrophils % % Lymphocytes % % Monocytes % % Eosinophils % % Basophils % % Neutrophils # (1.3-7.7) k/uL Lymphocytes # (1.0-4.8) k/uL Monocytes # (0-1.0) k/uL Eosinophils # (0-0.7) k/uL Basophils # (0-0.2) k/uL PT (10.0-12.5) sec INR (<1.2) APTT (22.0-30.0) sec Sodium (137-145) mmol/L Potassium (3.5-5.1) mmol/L Chloride (98-107) mmol/L Carbon Dioxide (22-30) mmol/L Anion Gap mmol/L BUN (7-17) mg/dL Creatinine (0.52-1.04) mg/dL Est GFR (CKD-EPI)AfAm (>60 ml/min/1.73 sqM) Est GFR (CKD-EPI)NonAf (>60 ml/min/1.73 sqM) Glucose (74-99) mg/dL Calcium (8.4-10.2) mg/dL Magnesium (1.6-2.3) mg/dL Total Bilirubin (0.2-1.3) mg/dL AST (14-36) U/L ALT (4-34) U/L Alkaline Phosphatase (38-126) U/L Troponin I <0.012 (0.000-0.034) ng/mL NT-Pro-B Natriuret Pep 2900 pg/mL Total Protein (6.3-8.2) g/dL Albumin (3.5-5.0) g/dL Disposition Clinical Impression: Atrial fibrillation with RVR Disposition: ADMITTED IP TO THIS [facility] Condition: Stable Is patient prescribed a controlled substance at d/c from ED?: No Time of Disposition: 21:44 Decision to Admit Reason: Admit from EC Decision Date: 06/28/24 Decision Time: 21:44
[2024-06-28] MEDS: DILTIAZEM 125 MG in SODIUM CHLORIDE 0.9% 100 ML IV SCH (22:57)
[2024-06-28] MEDS: APIXABAN 5 MG TAB PO SCH (23:08)
[2024-06-28] MEDS: ATORVASTATIN 10 MG TAB PO SCH (23:09)
[2024-06-29] MEDS: DILTIAZEM DRIP BOLUS FROM BAG 1 MG SOLN IV ONE (00:53)
[2024-06-29 06:25] LABS: Basophils % (A) 1 %; Eosinophils # (A) 0.2 k/uL (0-0.7); Eosinophils % (A) 2 %; HCT 41.2 % (34.0-46.0); HGB 13.7 gm/dL (11.4-16.0); Lymphocytes # (A) 2.2 k/uL (1.0-4.8); Lymphocytes % (A) 26 %; MCH 33.5 pg (25.0-35.0); MCHC 33.3 g/dL (31.0-37.0); MCV 100.7 fL (80.0-100.0); Mean Platelet Volume 8.3; Monocytes # (A) 0.5 k/uL (0-1.0); Monocytes % (A) 6 %; Neutrophils # (A) 5.3 k/uL (1.3-7.7); Neutrophils % (A) 64 %; Platelet Count 232 k/uL (150-450); RBC 4.09 m/uL (3.80-5.40); RDW 12.3 % (11.5-15.5); WBC 8.3 k/uL (3.8-10.6)
[2024-06-29 06:42] LABS: African American GFR (CKD) 63 (>60 ml/min/1.73 sqM); Anion Gap 13 mmol/L; Blood Urea Nitrogen 15 mg/dL (7-17); Calcium 9.5 mg/dL (8.4-10.2); Carbon Dioxide 19 mmol/L (22-30); Chloride 102 mmol/L (98-107); Glucose 87 mg/dL (74-99); Non-African American GFR(CKD) 54 (>60 ml/min/1.73 sqM); Potassium 4.3 mmol/L (3.5-5.1); Sodium 134 mmol/L (137-145)
[2024-06-29] MEDS: FLECAINIDE 50 MG TAB PO SCH (08:07)
[2024-06-29] MEDS: SPIRONOLACTONE 25 MG TAB PO SCH (08:07)
[2024-06-29] MEDS: LOSARTAN 50 MG TAB PO SCH (09:25)
--- NOTE | 2024-06-29 13:46 | P.CRDCN ---
History of Present Illness Consult date: 06/29/24 Reason for Consult (text): Atrial fibrillation with RVR History of present illness: This is a 68-year-old patient of Dr. Easley with past medical history of paroxysmal atrial fibrillation status post pulmonary vein isolation, dyslipidemia, mitral regurgitation, hypertension. We have been asked to evaluate the patient for A-fib with RVR. Patient states that she has been in atrial fibrillation since Wednesday off-and-on but yesterday she was at the store and was checking out developed significant sweats. 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 She did have an appointment on 06/06/2024 and at that time losartan was increased and patient was started on flecainide 50 mg twice daily. Device interrogation showed episodes of atrial fibrillation with several episodes a day of her primary care provider appointment. Patient is quite symptomatic with the atrial fibrillation and decided to come into the hospital for further evaluation. Regarding obstructive sleep apnea. She has been utilizing her CPAP as instructed. Patient has been started on Cardizem d rip currently at 5 mg daily. She remains in atrial fibrillation with controlled rate. Her blood pressure 109/69, pulse ox 95% on room air. -EKG: Atrial fibrillation 116 bpm. -Chest x-ray: Bibasilar platelike atelectasis versus scarring. -Laboratory studies: CBC is unremarkable. Sodium 134, potassium 4.3, creatinine initially 1.28 now 1.05. Troponin negative x 1. proBNP 2900. -Home cardiac medications: Eliquis 5 mg twice daily, atorvastatin 10 mg at bedtime, flecainide 50 mg every 12 hours, losartan 50 mg daily, metoprolol succinate 25 mg at bedtime, spironolactone 50 mg daily. -Cardiac catheterization performed 10/29/2022 following abnormal stress test revealed normal coronary arteries. -Atrial fibrillation ablation performed 04/08/2021. -Echocardiogram performed in the office on 12/02/2022 revealed EF 55%. Mild concentric left ventricular hypertrophy. Mild aortic regurgitation. Mild to moderate mitral regurgitation. Moderate tricuspid regurgitation. PASP 51 mmHg. Mild pulmonic regurgitation. Review Of Systems: At the time of my exam: CONSTITUTIONAL: Denies fever or chills. HEENT: Denies blurred vision, vision changes, or eye pain. Denies hemoptysis CARDIOVASCULAR: Denies chest pain. Denies orthopnea. Denies PND. Denies palpitations RESPIRATORY: Denies shortness of breath. GASTROINTESTINAL: Denies abdominal pain. Denies nausea or vomiting. HEMATOLOGIC: Denies bleeding disorders. GENITOURINARY: Denies any blood in urine. SKIN: Denies puritis. Denies rash. Physical examination: Gen: This is a 68-year-old female in no acute respiratory distress. VS: reviewed HEENT: Head is atraumatic, normocephalic. Pupils equal, round. Sclerae is anicteric. NECK: Supple. No JVD. LUNGS: Clear to auscultation. No wheezes or rhonchi. No intercostal retractions. HEART: Irregular rate and rhythm. No murmur. ABDOMEN: Soft No tenderness. EXTREMITIES: No pedal edema. No calf tenderness. NEUROLOGICAL: Patient is awake, alert and oriented x3. Assessment: Paroxysmal atrial fibrillation with RVR History of atrial fibrillation ablation Hypertension Hyperlipidemia Mitral regurgitation Plan: Resume patient's home cardiac medications Continue Cardizem drip at 5 mg/h Continue telemetry monitoring If patient remains in atrial fibrillation by tomorrow morning, plan for car dioversion. N.p.o. after midnight Obtain 2-D echocardiogram and Doppler study to assess cardiac structure and function Further recommendations to follow based upon clinical course Thank you kindly for this consultation. Nurse practitioner note has been reviewed, I agree with documented findings and plan of care. Patient was seen and examined. Past Medical History Past Medical History: Atrial Fibrillation, Hyperlipidemia, Hypertension, Osteoarthritis (OA), Sleep Apnea/CPAP/BIPAP Additional Past Medical History / Comment(s): ECtopic , abnormal stress test. Hx. of A-Fib., LOOP MONITOR PUT IN ON 2023 History of Any Multi-Drug Resistant Organisms: None Reported Past Surgical History: Cardiac Ablation, Section, Cholecystectomy, Heart Catheterization, Orthopedic Surgery Additional Past Surgical History / Comment(s): eye surgery, R knee scope, L Rotator cuff., LOOP MONITOR, COLONOSCOPY 2023(POLYPS) atrial ablation Past Anesthesia/Blood Transfusion Reactions: Postoperative Nausea & Vomiting (PONV) Additional Past Anesthesia/Blood Transfusion Reaction / Comment(s): Vomiting after anesthesia. Past Psychological History: No Psychological Hx Reported Smoking Status: Never smoker Past Alcohol Use History: None Reported Past Drug Use History: None Reported - Past Family History Mother Family Medical History: No Reported History Medications and Allergies Home Medications Medication Instructions Recorded Confirmed Type Apixaban [Eliquis] 5 mg PO BID 04/01/21 06/28/24 History Atorvastatin [Lipitor] 10 mg PO HS 04/01/21 06/28/24 History Flecainide [Tambocor] 50 mg PO Q12HR 06/28/24 06/28/24 History Losartan [Cozaar] 50 mg PO DAILY 06/28/24 06/28/24 History Metoprolol Succinate (ER) [Toprol 25 mg PO HS 06/28/24 06/28/24 History Xl] Spironolactone 50 mg PO DAILY 06/28/24 06/28/24 History Allergies Allergy/AdvReac Type Severity Reaction Status Date / Time hydrocodone [From Vicodin] Allergy Unknown Verified 06/28/24 20:10 fentanyl AdvReac Vomiting Verified 06/28/24 20:10 Physical Exam Vitals: Vital Signs Temp Pulse Resp BP Pulse Ox 06/29/24 06:17 97.7 F 89 18 109/69 95 06/29/24 04:00 75 116/78 97 06/29/24 03:00 68 112/74 94 L 06/29/24 02:00 70 101/62 06/29/24 01:12 81 104/68 96 06/29/24 00:00 80 113/60 95 06/28/24 23:31 112 H 119/78 96 06/28/24 23:24 53 L 16 143/80 94 L 06/28/24 22:52 103 H 126/75 96 06/28/24 19:32 98.0 F 100 111/80 94 L 06/28/24 18:19 97.9 F 79 20 149/93 99 Intake and Output 06/28/24 06/29/24 06/29/24 22:59 06:59 14:59 Other: Weight 108.862 kg Results 06/29/24 05:46 06/29/24 05:46 Cardiac Enzymes 06/28/24 06/28/24 Range/Units 18:49 18:49 AST 25 (14-36) U/L Troponin I <0.012 (0.000-0.034) ng/mL Coagulation 06/28/24 Range/Units 18:49 PT 10.4 (10.0-12.5) sec APTT 20.8 L (22.0-30.0) sec CBC 06/28/24 06/29/24 Range/Units 18:49 05:46 WBC 8.7 8.3 (3.8-10.6) k/uL RBC 4.41 4.09 (3.80-5.40) m/uL Hgb 14.1 13.7 (11.4-16.0) gm/dL Hct 43.9 41.2 (34.0-46.0) % Plt Count 249 232 (150-450) k/uL Comprehensive Metabolic Panel 06/28/24 06/29/24 Range/Units 18:49 05:46 Sodium 134 L 134 L (137-145) mmol/L Potassium 4.7 4.3 (3.5-5.1) mmol/L Chloride 102 102 (98-107) mmol/L Carbon Dioxide 22 19 L (22-30) mmol/L BUN 17 15 (7-17) mg/dL Creatinine 1.28 H 1.05 H (0.52-1.04) mg/dL Glucose 99 87 (74-99) mg/dL Calcium 9.7 9.5 (8.4-10.2) mg/dL AST 25 (14-36) U/L ALT 20 (4-34) U/L Alkaline Phosphatase 95 (38-126) U/L Total Protein 7.4 (6.3-8.2) g/dL Albumin 4.7 (3.5-5.0) g/dL Current Medications Generic Name Dose Route Start Last Admin Trade Name Freq PRN Reason Stop Dose Admin Apixaban 5 mg 06/28/24 22:00 06/28/24 23:08 Apixaban 5 Mg Tab PO 5 mg BID SCOTT Administration Protocol Atorvastatin Calcium 10 mg 06/28/24 22:00 06/28/24 23:09 Atorvastatin 10 Mg Tab PO 10 mg HS SCOTT Administration Diltiazem HCl 125 mg/ Sodium 125 mls @ 5 mls/hr 06/28/24 21:45 06/28/24 22:57 Chloride IV 5 mg/hr .Q24H SCOTT 5 mls/hr Administration 5 MG/HR Naloxone HCl 0.2 mg 06/28/24 21:45 Naloxone 0.4 Mg/Ml 1 Ml Vial IV Q2M PRN Opioid Reversal Spironolactone 50 mg 06/29/24 09:00 Spironolactone 25 Mg Tab PO DAILY SCOTT Intake and Output 06/28/24 06/29/24 06/29/24 22:59 06:59 14:59 Other: Weight 108.862 kg 06/29/24 05:46 06/29/24 05:46
--- NOTE | 2024-06-29 14:51 | P.HPIM ---
History of Present Illness H&P Date: 06/29/24 (Atrial fibrillation with RVR) Chief Complaint: Complaining of palpitation with associated symptom of fainting, sweating, s History and physical Date of service 06/29/[address] Stern. Patient seen and emergency department room 22. Chief complaint: Patient has been suffering from atrial fibrillation paroxysmal and she had treatment and did work very well with her for couple weeks then subsequently she had irregular heartbeat with the symptoms of dizziness, sweating, unable to walk and she had to sit up for a while after she went to buy groceries as well as s weating in the her head and neck with the paroxysmal atrial fibrillation and palpitation symptomatic. History of present illness: The patient has been experienced recurrent episodes of palpitation and shortness of breath and associated with the history of going to groceries and gets short of breath she has to sit down and her heart is running fast and become more frequent than usual and she was did very well with the medication that was given by Dr. Easley however this now become more than she can handle and at that time she came to the hospital the EKG found that her heart rate 116 irregular irregularities with the atrial fibrillation. In the ER patient underwent several testing and found that she had abnormal NT pro BNp 2900 which indicating underlying added to the atrial fibrillation also mild congestive heart failure meanwhile the troponin was normal less than 0.012. And she is on Eliquis at home and her pro time is 10.4 INR 0.9 and PTT 20.8. Her white count was 8.7, hemoglobin 14.1 with hematocrit 43.9 with the platelet count 249 and her sodium 134 potassium 4.7, chloride 102, carbon dioxide 22, anion gap of 10, BUN of 17, creatinine 1.28 with the non- EGFR 43 which indicating her chronic chronic kidney disease stage III. Calcium is 9.7 magnesium 2.1 total protein 7.4 albumin 4.7 and bilirubin 1 AST 25 ALT 20 and alkaline phosphatase 95 all within normal limit. Patient also had underlying chest x-ray and that shows the heart size is normal and pulmonary vascular is normal and she had some linear opacity in the left base correlate with atelectasis and sign some linear opacity also in the right base consider scarring or atelectasis. Past medical history she had history of hayfever highly hyperlipidemia hypertension colonoscopy was 2012 she had a degenerative disc disease and arthritis and spinal stenosis and spondylitis. Social history she is no alcohol intake no smoking and no smoking marijuana no street drugs. Allergies to fentanyl. With the severe reaction to egg or egg derived product which can cause nausea ketorolac close unsteady g Dilaudid close 6 stomach and make her loopy. Current medication list: Spironolactone 50 mg tablet once a day Eliquis 5 mg twice daily Atorvastatin 10 mg nightly Losartan 50 mg once a day Metoprolol ER succinate 25 mg once a day Acetaminophen 500 mg daily as needed She was also with medication by Dr. Easley for the arrhythmia unknown to me Dr. Easley will know the name She is on of obstructive sleep apnea and she CPAP. Review of system: Neuropsychiatry stable no complaint Respiratory uses CPAP at home Cardiac main complaint with the atrial fibrillation and palpitation and feeling dizzy and sweaty and occasionally nauseated GI no symptoms no symptoms. And she had controlled blood pressure at home. Review of rest of the 14 Bradley was noncontributory. On exam patient is conscious alert oriented she able to communicate and stated her complaint Vital sign on admission temperature 97.7 F oral, pulse rate by the EKG 117 and per minute and fluctuating up and down to 112 and 53, Respiratory rate 16/min and blood pressure on admission 149/93 and oxygen was 99% on room air however patient started on Cardizem drip and blood pressure drop 10 7-61 patient seen by cardiology Dr. Easley. Head was normocephalic atraumatic pupil was equal reactive conjunctiva was pink sclera was nonicteric normal hearing and oropharynx natural teeth normal swallowing and communicating freely Neck was supple no JVD no thyromegaly no lymphadenopathy trachea midline. Chest is clear to auscultation and percussion heart Heart irregular irregularities. Abdomen soft positive bowel sound Extremities positive pulses trace edema. Neurologically stable Last echo received from Dr. Easley dated 12/02/2022 indicating ejection fraction of 55 and she had mild concentric left ventricular hypertrophy she had mild aortic regurgitation and aortic valve is calcified she has also moderate mitral regurgitation and moderate tricuspid regurgitation and increased pulmonary systolic pressure to 30 Assessment: Atrial fibrillation with RVR symptomatic. 2. Elevated NT proBNP could be associated with the volume or congestive heart failure 3. History of pulmonary hypertension 4. Underlying obstructive sleep apnea on CPAP. 5. Hyperlipidemia 6. On anticoagulant Eliquis 5 mg twice daily. #7 chronic kidney disease Assessment and plan: Patient has mild elevation of the hyperparathyroid and we will repeat a patient has also hyperparathyroidism and will order the test for the patient to be done and evaluate Cardiology consultation for definitive treatment request from Dr. Easley. Past Medical History Past Medical History: Atrial Fibrillation, Hyperlipidemia, Hypertension, Osteoarthritis (OA), Sleep Apnea/CPAP/BIPAP Additional Past Medical History / Comment(s): ECtopic , abnormal stress test. Hx. of A-Fib., LOOP MONITOR PUT IN ON 2023 History of Any Multi-Drug Resistant Organisms: None Reported Past Surgical History: Cardiac Ablation, Section, Cholecystectomy, Heart Catheterization, Orthopedic Surgery Additional Past Surgical History / Comment(s): eye surgery, R knee scope, L Rotator cuff., LOOP MONITOR, COLONOSCOPY 2023(POLYPS) atrial ablation Past Anesthesia/Blood Transfusion Reactions: Postoperative Nausea & Vomiting (PONV) Additional Past Anesthesia/Blood Transfusion Reaction / Comment(s): Vomiting after anesthesia. Past Psychological History: No Psychological Hx Reported Smoking Status: Never smoker Past Alcohol Use History: None Reported Past Drug Use History: None Reported - Past Family History Mother Family Medical History: No Reported History Medications and Allergies Home Medications Medication Instructions Recorded Confirmed Type Apixaban [Eliquis] 5 mg PO BID 04/01/21 06/28/24 History Atorvastatin [Lipitor] 10 mg PO HS 04/01/21 06/28/24 History Flecainide [Tambocor] 50 mg PO Q12HR 06/28/24 06/28/24 History Losartan [Cozaar] 50 mg PO DAILY 06/28/24 06/28/24 History Metoprolol Succinate (ER) [Toprol 25 mg PO HS 06/28/24 06/28/24 History Xl] Spironolactone 50 mg PO DAILY 06/28/24 06/28/24 History Allergies Allergy/AdvReac Type Severity Reaction Status Date / Time hydrocodone [From Vicodin] Allergy Unknown Verified 06/28/24 20:10 fentanyl AdvReac Vomiting Verified 06/28/24 20:10 Physical Exam Vitals: Vital Signs Temp Pulse Resp BP Pulse Ox 06/29/24 13:14 98 F 76 16 107/61 95 06/29/24 09:26 98 F 87 16 115/83 97 06/29/24 06:17 97.7 F 89 18 109/69 95 06/29/24 04:00 75 116/78 97 06/29/24 03:00 68 112/74 94 L 06/29/24 02:00 70 101/62 06/29/24 01:12 81 104/68 96 06/29/24 00:00 80 113/60 95 06/28/24 23:31 112 H 119/78 96 06/28/24 23:24 53 L 16 143/80 94 L 06/28/24 22:52 103 H 126/75 96 06/28/24 19:32 98.0 F 100 111/80 94 L 06/28/24 18:19 97.9 F 79 20 149/93 99 Intake and Output 06/28/24 06/29/24 06/29/24 22:59 06:59 14:59 Other: Weight 108.862 kg Results CBC & Chem 7: 06/29/24 05:46 06/29/24 05:46 Labs: Abnormal Lab Results - Last 24 Hours (Table) 06/28/24 06/28/24 06/29/24 Range/Units 18:49 18:49 05:46 MCV 100.7 H (80.0-100.0) fL APTT 20.8 L (22.0-30.0) sec Sodium 134 L (137-145) mmol/L Carbon Dioxide (22-30) mmol/L Creatinine 1.28 H (0.52-1.04) mg/dL 06/29/24 Range/Units 05:46 MCV (80.0-100.0) fL APTT (22.0-30.0) sec Sodium 134 L (137-145) mmol/L Carbon Dioxide 19 L (22-30) mmol/L Creatinine 1.05 H (0.52-1.04) mg/dL
[2024-06-29] MEDS: METOPROLOL SUCCINATE (ER) 25 MG TAB.ER.24H PO SCH (20:10)
[2024-06-30] MEDS: SODIUM CHLORIDE 0.9% 1,000 ML IV SCH (10:54)
--- NOTE | 2024-06-30 12:53 | P.PN ---
Subjective Progress Note Date: 06/30/24 Reason for Consult (text): Atrial fibrillation with RVR History of present illness: This is a 68-year-old patient of Dr. Easley with past medical history of paroxysmal atrial fibrillation status post pulmonary vein isolation, dyslipidemia, mitral regurgitation, hypertension. We have been asked to evaluate the patient for A-fib with RVR. Patient states that she has been in atrial fibrillation since Wednesday off-and-on but yesterday she was at the store and was checking out developed significant sweats. She states she has also had problems with her neck recently and had x-rays done and at the time she went back for the results and EKG was done in the office and she was told to make an appointment with her telecommunications support. She did have an appointment on 06/06/2024 and at that time losartan was increased and patient was started on flecainide 50 mg twice daily. Device interrogation showed episodes of atrial fibrillation with several episodes a day of her primary care provider appointment. Patient is quite symptomatic with the atrial fibrillation and decided to come into the hospital for further evaluation. Regarding obstructive sleep apnea. She has been utilizing her CPAP as instructed. Patient has been started on Cardizem drip currently at 5 mg daily. She remains in atrial fibrillation with controlled rate. Her blood pressure 109/69, pulse ox 95% on room air. -EKG: Atrial fibrillation 116 bpm. -Chest x-ray: Bibasilar platelike atelectasis versus scarring. -Laboratory studies: CBC is unremarkable. Sodium 134, potassium 4.3, creatinine initially 1.28 now 1.05. Troponin negative x 1. proBNP 2900. -Home cardiac medications: Eliquis 5 mg twice daily, atorvastatin 10 mg at bedtime, flecainide 50 mg every 12 hours, losartan 50 mg daily, metoprolol succinate 25 mg at bedtime, spironolactone 50 mg daily. -Cardiac catheterization performed 10/29/2022 following abnormal stress test revealed normal coronary arteries. -Atrial fibrillation ablation performed 04/08/2021. -Echocardiogram performed in the office on 12/02/2022 revealed EF 55%. Mild concentric left ventricular hypertrophy. Mild aortic regurgitation. Mild to mo derate mitral regurgitation. Moderate tricuspid regurgitation. PASP 51 mmHg. Mild pulmonic regurgitation. 06/30 Patient seen and examined. Patient remains in A-fib with RVR. She is n.p.o. and agreeable to move forward with cardioversion today. Blood pressure 109/77, pulse ox 96% on room air. Physical examination: Gen: This is a 68-year-old female in no acute respiratory distress. VS: reviewed HEENT: Head is atraumatic, normocephalic. Pupils equal, round. Sclerae is anicteric. NECK: Supple. No JVD. LUNGS: Clear to auscultation. No wheezes or rhonchi. No intercostal retractions. HEART: Irregular rate and rhythm. No murmur. ABDOMEN: Soft No tenderness. EXTREMITIES: No pedal edema. No calf tenderness. NEUROLOGICAL: Patient is awake, alert and oriented x3. Assessment: Paroxysmal atrial fibrillation with RVR History of atrial fibrillation ablation Hypertension Hyperlipidemia Mitral regurgitation Plan: Continue patient's home cardiac medications Continue Cardizem drip at 5 mg/h Continue telemetry monitoring Schedule patient today for cardioversion. N.p.o. Further recommendations to follow based upon clinical course Nurse practitioner note has been reviewed, I agree with documented findings and plan of care. Patient was seen and examined. Objective - Vital Signs Vital signs: Vital Signs Temp 97.7 F 06/30/24 07:00 Pulse 137 H 06/30/24 07:00 Resp 16 06/30/24 07:00 BP 109/77 06/30/24 07:00 Pulse Ox 96 06/30/24 07:00 FiO2 Intake & Output 06/29/24 06/30/24 06/30/24 18:59 06:59 18:59 Intake Total 107 Balance 107 Weight 108.862 kg Intake: Intake, IV Titration 107 Amount Diltiazem 125 mg In 107 Sodium Chloride 0.9% 100 ml @ 5 MG/HR 5 mls/hr IV .Q24H SCOTT Rx#:[id number] Other: # Voids 3 - Labs CBC & Chem 7: 06/29/24 05:46 06/29/24 05:46
[2024-06-30] MEDS ORDERED: PROPOFOL 10 MG/ML 20 ML VIAL IV ONE (13:08)
[2024-06-30] MEDS: IV FLUID CONTINUATION 1,000 ML IV ONE (13:16)
--- NOTE | 2024-06-30 13:36 | P.PCN ---
Date of Procedure: 06/30/24 Operative Findings: Cardioversion Report Performing physician Brice Griffith M.D. Procedure performed Successful cardioversion of atrial fibrillation to normal sinus mechanism using 120 J at first attempt Indication Symptomatic atrial fibrillation Complication None Level of sedation The procedure was performed under deep sedation using propofol with RETAIL ROUTE SUPERVISOR in the room Procedure description After obtaining an informed consent the patient was brought to the recovery room. Sedation was introduced using propofol with RETAIL ROUTE SUPERVISOR in the room. Subsequently the patient cardioverted from atrial fibrillation to normal sinus mechanism using 200 J and first attempt Conclusion Successful cardioversion of atrial fibrillation to normal sinus mechanism using 200 J Postprocedure management Continue the current medical regimen Continue oral anticoagulation Follow-up with the patient
[2024-06-30 14:16] VITALS: RESP 16; TEMP 98.2
--- NOTE | 2024-06-30 16:36 | P.DS ---
Providers Date of admission: 06/28/24 21:45 Attending physician: Trav Stern Consults: 06/28/24 21:45 Consult Physician Urgent Consulting Provider: [facility] Consult Reason/Comments: afib with rvr Do you want consulting provider notified?: Yes Primary care physician: Trav Stern Discharge summary Date of service 06/30/[address] Stern. Location 628 bed 1 [facility]. Consulting physician Dr. Sommer humanities coordinator. Final diagnosis: 1. Atrial fibrillation with RVR 2. Chronic kidney disease with a baseline creatinine 1.28 and EGFR 43. 3. Underlying mild pulmonary hypertension 4. Elevated NT proBNP on admission, 2900. Probably secondary to the atrial fibrillation 5. Thyroid function normal with a TSH 3.340 and PTH I 70.6 which is normal range. 6. Patient on anticoagulant Eliquis per Dr. Easley her humanities coordinator. 7 minimal hyponatremia to be checked and as outpatient when seen in the office. Presentation to the ER: Patient has repeated episodes of symptomatic palpitation with shortness of b reath and feeling dizzy with the heart rate was speedy in the ER found that heart rate 117/min by the EKG and her symptoms was recurrent prevented her from going to shopping and has to rest between walking. As patient admitted to the hospital seen by cardiology Dr. Sommer and he did cardioversion with 200 J and she responded very well and become sinus rhythm. He indicated to be going home and cleared for discharge as well as to continue her previous medication which contained flecainide until seen by Dr. Easley as outpatient. On exam on discharge. Her vital sign temperature 98.2 F oral, pulse 69, respiratory rate 16/min, blood pressure 101/68 with a mean 79 and oxygen saturation 98. Patient is conscious alert oriented aware of her medication able to ambulate and eat and swallow Neck was supple no JVD no thyromegaly no lymph adenopathy trachea midline Chest is clear to auscultation percussion Heart was regular sinus rhythm and which converted from atrial fibs to sinus with the rate 69 Abdomen is soft positive bowel sound obese Extremities no edema and positive pulses. Psychiatry stable Neurologically: No lateralizing sign no facial asymmetry moving 4 extremities Assessment: Patient stable general condition to be discharged home today. Plan discussed with the patient in detail to check her blood pressure at home and to hold antihypertensive medication if blood pressure below 120 systolic. Patient Condition at Discharge: Stable Plan - Discharge Summary Discharge Rx Participant: No New Discharge Prescriptions: Continue Atorvastatin [Lipitor] 10 mg PO HS Apixaban [Eliquis] 5 mg PO BID Metoprolol Succinate (ER) [Toprol XL] 25 mg PO HS Spironolactone 50 mg PO DAILY Flecainide [Tambocor] 50 mg PO Q12HR Losartan [Cozaar] 50 mg PO DAILY #0 Discharge Medication List Apixaban [Eliquis] 5 mg PO BID 04/01/21 [History] Atorvastatin [Lipitor] 10 mg PO HS 04/01/21 [History] Flecainide [Tambocor] 50 mg PO Q12HR 06/28/24 [History] Metoprolol Succinate (ER) [Toprol XL] 25 mg PO HS 06/28/24 [History] Spironolactone 50 mg PO DAILY 06/28/24 [History] Losartan [Cozaar] 50 mg PO DAILY #0 06/30/24 [Rx] Follow up Appointment(s)/Referral(s): Gigi Easley MD [STAFF PHYSICIAN] - 07/14/24 11:30 am (Appointment at main office ) Trav Stern MD [Primary Care Provider] - 3 Days Patient Instructions/Handouts: A-fib (Atrial Fibrillation) (DC) Plan of Treatment: If the patient have recurrent symptoms with the increased heart rate and palpitation should return to the ER
[2024-06-30 16:53] VITALS: BP 104/71; PULSE 71
== END 2024-06-30 17:27 | disposition home or self-care (01) ==
LOC: EC 18:15 → 6NMEDSUR 21:45
PROVIDERS: ADMIT Internal Medicine; ATTEND Internal Medicine
DX: I48.0 Paroxysmal atrial fibrillation (principal); I34.0 Nonrheumatic mitral (valve) insufficiency; E21.3 Hyperparathyroidism, unspecified; I13.0 Hypertensive heart and chronic kidney disease with heart failure and stage 1 through stage 4 chronic kidney disease, or unspecified chronic kidney disease; N18.30 Chronic kidney disease, stage 3 unspecified; E78.5 Hyperlipidemia, unspecified; E87.1 Hypo-osmolality and hyponatremia; G47.33 Obstructive sleep apnea (adult) (pediatric); I27.20 Pulmonary hypertension, unspecified; I50.9 Heart failure, unspecified; M19.90 Unspecified osteoarthritis, unspecified site; Z79.01 Long term (current) use of anticoagulants; Z79.899 Other long term (current) drug therapy; Z88.5 Allergy status to narcotic agent
CPT/HCPCS: 96366 ×2; 96365; 99291; 36415; 93005; 92960; 83880; 80053; 80048; 84443; 83735; 84484; 85025 ×2; 85610; 85730; 83970; 71046; G0378 ×3; J2704

== ENCOUNTER → 2024-07-03 | Outpatient (CLI) | payer MEDICARE ==
--- NOTE | 2024-07-03 10:50 | XR ---
EXAMINATION TYPE: XR chest 2V DATE OF EXAM: 07/03/2024 10:43 AM COMPARISON: 06/28/2024 CLINICAL INDICATION: Female, 68 years old with history of R05.9 COUGH, congestion TECHNIQUE: XR chest 2V view(s) obtained. FINDINGS: The heart size is normal. The pulmonary vasculature is normal. Some platelike atelectasis may be at the right middle mild subsegmental atelectasis at the lung base on lateral projection. Lobe IMPRESSION: 1. Right middle lobe and lung base streaky atelectasis [facility], , 07/03/2024 10:48 AM
[2024-07-03 11:21] LABS: Influenza A Not Detected (Not Detectd); Influenza B Not Detected (Not Detectd); RSV Not Detected (Not Detectd)
[2024-07-03 15:07] LABS: Basophils # (A) 0.07 X 10*3/uL (0.00-0.10); Basophils % (A) 1.1 %; Eosinophils # (A) 0.27 X 10*3/uL (0.04-0.35); Eosinophils % (A) 4.2 %; HCT 37.9 % (37.2-46.3); HGB 12.4 g/dL (12.0-15.0); Lymphocytes # (A) 1.44 X 10*3/uL (0.90-5.00); Lymphocytes % (A) 22.3 %; MCH 32.3 pg (27.0-32.0); MCHC 32.7 g/dL (32.0-37.0); MCV 98.7 FL (80.0-97.0); Mean Platelet Volume 11.7 FL (9.5-12.2); Monocytes # (A) 0.73 X 10*3/uL (0.20-1.00); Monocytes % (A) 11.3 %; NRBC Per 100 WBC 0 X 10*3/uL (0.00-0.01); Neutrophils # (A) 3.93 X 10*3/uL (1.80-7.70); Neutrophils % (A) 60.8 %; Platelet Count 212 X 10*3/uL (140-440); RBC 3.84 X 10*6/uL (4.10-5.20); RDW 12.5 % (11.5-14.5); WBC 6.46 X 10*3/uL (4.50-10.00)
== END | disposition home or self-care (01) ==
LOC: LABWHC1 09:58
PROVIDERS: ATTEND Internal Medicine
DX: Z11.2 Encounter for screening for other bacterial diseases (principal); Z13.9 Encounter for screening, unspecified; Z11.52 Encounter for screening for COVID-19; J06.9 Acute upper respiratory infection, unspecified; J12.9 Viral pneumonia, unspecified; R05.9 Cough, unspecified
CPT/HCPCS: 36415; 71046; 85025; 87636

== ENCOUNTER 2024-07-22 11:50 | Observation (INO) | payer MEDICARE ==
--- NOTE | 2024-07-22 12:56 | ED ---
General Adult HPI - General Chief complaint: Arrhythmia/Palpitations Stated complaint: heart racing Time Seen by Provider: 07/22/24 12:27 Source: patient, RN notes reviewed Mode of arrival: ambulatory Limitations: no limitations - History of Present Illness Initial comments: Patient is a 68-year-old female present to the emergency department with concer ns with palpitations. Onset of symptoms was yesterday. Patient does have history of similar symptoms previously associated with atrial fibrillation. Patient has previous ablation. Patient was in the hospital recently and needed cardioversion. Heart rate has been as high as 130 at home. Patient does have some associated exertional dyspnea. Patient also has fatigue. No chest pain. Patient is on Eliquis. - Related Data Home Medications Medication Instructions Recorded Confirmed Apixaban [Eliquis] 5 mg PO BID 04/01/21 07/22/24 Atorvastatin [Lipitor] 10 mg PO HS 04/01/21 07/22/24 Flecainide [Tambocor] 50 mg PO Q12HR 06/28/24 07/22/24 Spironolactone 50 mg PO DAILY 06/28/24 07/22/24 Losartan [Cozaar] 75 mg PO DAILY 07/22/24 07/22/24 Metoprolol Tartrate [Lopressor] 12.5 mg PO HS 07/22/24 07/22/24 Allergies Allergy/AdvReac Type Severity Reaction Status Date / Time hydrocodone [From Vicodin] Allergy Unknown Verified 07/22/24 15:37 fentanyl AdvReac Vomiting Verified 07/22/24 15:37 Review of Systems ROS Statement: Those systems with pertinent positive or pertinent negative responses have been documented in the HPI. ROS Other: All systems not noted in ROS Statement are negative. Constitutional: Denies: fever Eyes: Denies: eye pain ENT: Denies: ear pain Respiratory: Reports: as per HPI. Denies: cough Cardiovascular: Reports: as per HPI, palpitations, dyspnea on exertion Endocrine: Reports: fatigue Gastrointestinal: Denies: abdominal pain Musculoskeletal: Denies: back pain Past Medical History Past Medical History: Atrial Fibrillation, Hyperlipidemia, Hypertension, Osteoarthritis (OA), Sleep Apnea/CPAP/BIPAP Additional Past Medical History / Comment(s): ECtopic , abnormal stress test. Hx. of A-Fib., LOOP MONITOR PUT IN ON 2023 History of Any Multi-Drug Resistant Organisms: None Reported Past Surgical History: Cardiac Ablation, Section, Cholecystectomy, Heart Catheterization, Orthopedic Surgery Additional Past Surgical History / Comment(s): eye surgery, R knee scope, L Rotator cuff., LOOP MONITOR, COLONOSCOPY 2023(POLYPS) atrial ablation Past Anesthesia/Blood Transfusion Reactions: Postoperative Nausea & Vomiting (PONV) Additional Past Anesthesia/Blood Transfusion Reaction / Comment(s): Vomiting after anesthesia. Past Psychological History: No Psychological Hx Reported Smoking Status: Never smoker Past Alcohol Use History: None Reported Past Drug Use History: None Reported - Past Family History Mother Family Medical History: No Reported History General Exam Limitations: no limitations General appearance: alert, in no apparent distress Head exam: Present: normocephalic Eye exam: Present: normal appearance Neck exam: Present: normal inspection Respiratory exam: Present: normal lung sounds bilaterally Cardiovascular Exam: Present: tachycardia, irregular rhythm Expanded Peripheral pulses: 2+: Radial (R), Radial (L) GI/Abdominal exam: Present: soft. Absent: tenderness Extremities exam: Present: normal inspection. Absent: pedal edema, calf tenderness Neurological exam: Present: alert Psychiatric exam: Present: normal affect, normal mood Skin exam: Present: normal color Course Vital Signs 07/22/24 07/22/24 07/22/24 12:13 14:35 15:16 Temperature 97.8 F Pulse Rate 100 123 H 90 Respiratory 20 18 18 Rate Blood Pressure 138/87 107/71 97/74 O2 Sat by Pulse 97 98 97 Oximetry EKG Findings - EKG Results: EKG: interpreted by ERMD (Atrial flutter/tachycardia with a rate of 123. [place] indeterminant. Q wave in V2. Poor R wave progression.), normal ST/T EKG shows: tachycardia Medical Decision Making - Medical Decision Making Was pt. sent in by a medical professional or institution (, PA, VETERINARY LIVESTOCK INSPECTOR, urgent care, hospital, or [facility]...) When possible be specific @ -No Did you speak to anyone other than the patient for history (EMS, parent, family, police, friend...)? What history was obtained from this source @ -Daughter is present helps provide history including patient's recent cardioversion and admission Did you review nursing and triage notes (agree or disagree)? Why? @ -I reviewed and agree with nursing and triage notes Were old charts reviewed (outside hosp., previous admission, EMS record, old EKG, old radiological studies, urgent care reports/EKG's, [facility] records)? Report findings @ -Previous admission reviewed Differential Diagnosis (chest pain, altered mental status, abdominal pain women, abdominal pain men, vaginal bleeding, weakness, fever, dyspnea, syncope, headache, dizziness, GI bleed, back pain, seizure, CVA, palpatations, mental health, musculoskeletal)? @ -Differential Palpitations Ventricular arrhythmias, atrial arrhythmias, myocardial infarction, anemia, thyrotoxicosis, electrolyte imbalance, hypokalemia, pulmonary embolism, pulmonary disease, drugs, alcohol, anxiety, stress.... This is not meant to be an all-inclusive list. EKG interpreted by me (3pts min.). @ -As above X-rays interpreted by me (1pt min.). @ -Chest x-ray does not reveal acute abnormality CT interpreted by me (1pt min.). @ -None done U/S interpreted by me (1pt. min.). @ -None done What testing was considered but not performed or refused? (CT, X-rays, U/S, labs)? Why? @ -None What meds were considered but not given or refused? Why? @ -None Did you discuss the management of the patient with other professionals (jenifer underwood i.e. , PA, VETERINARY LIVESTOCK INSPECTOR, lab, RT, psych nurse, social work administrator, form block maker, teacher, branch lending officer, case mgr)? Give summary @ -Case was discussed with Dr. Javan Gray who is familiar with this patient and will admit with cardiac consult Was smoking cessation discussed for >3mins.? @ -No Was critical care preformed (if so, how long)? @ -31 minutes critical care time Were there social determinants of health that impacted care today? How? (Homelessness, low income, unemployed, alcoholism, drug addiction, transportation, low edu. Level, literacy, decrease access to med. care, shelter, rehab)? @ -No Was there de-escalation of care discussed even if they declined (Discuss DNR or withdrawal of care, Hospice)? DNR status @ -No What co-morbidities impacted this encounter? (DM, HTN, Smoking, COPD, CAD, Cancer, CVA, ARF, Chemo, Hep., AIDS, mental health diagnosis, sleep apnea, morbid obesity)? @ -History of A-fib Was patient admitted / discharged? Hospital course, mention meds given and route, prescriptions, significant lab abnormalities, going to OR and other pertinent info. @ -Patient presents with recurrent A-fib. Patient on Cardizem drip without much improvement. Heart rate remains 128. Evaluation otherwise unremarkable. Patient will be admitted with cardiac consult. Undiagnosed new problem with uncertain prognosis? @ -No Drug Therapy requiring intensive monitoring for toxicity (Heparin, Nitro, Insulin, Cardizem)? @ -Cardizem drip Were any procedures done? @ -No Diagnosis/symptom? @ -A-fib with RVR Acute, or Chronic, or Acute on Chronic? @ -Acute Uncomplicated (without systemic symptoms) or Complicated (systemic symptoms)? @ -Default Side effects of treatment? @ -No Exacerbation, Progression, or Severe Exacerbation? @ -No Poses a threat to life or bodily function? How? (Chest pain, [place], [place], pneumonia, PE, COPD, DKA, ARF, appy, cholecystitis, CVA, Diverticulitis, Homicidal, Suicidal, threat to staff... and all critical care pts) @ -Threat to cardiac function - Lab Data Result diagrams: 07/22/24 12:43 07/22/24 12:43 Lab Results 07/22/24 07/22/24 07/22/24 Range/Units 12:43 12:43 12:43 WBC 6.8 (3.8-10.6) k/uL RBC 4.39 (3.80-5.40) m/uL Hgb 14.2 (11.4-16.0) gm/dL Hct 44.0 (34.0-46.0) % MCV 100.2 H (80.0-100.0) fL MCH 32.5 (25.0-35.0) pg MCHC 32.4 (31.0-37.0) g/dL RDW 12.8 (11.5-15.5) % Plt Count 262 (150-450) k/uL MPV 8.7 Neutrophils % 63 % Lymphocytes % 26 % Monocytes % 7 % Eosinophils % 3 % Basophils % 0 % Neutrophils # 4.3 (1.3-7.7) k/uL Lymphocytes # 1.8 (1.0-4.8) k/uL Monocytes # 0.4 (0-1.0) k/uL Eosinophils # 0.2 (0-0.7) k/uL Basophils # 0.0 (0-0.2) k/uL PT 10.5 (10.0-12.5) sec INR 0.9 (<1.2) APTT 25.3 (22.0-30.0) sec D-Dimer <0.17 (<0.60) mg/L FEU Sodium 133 L (137-145) mmol/L Potassium 4.4 (3.5-5.1) mmol/L Chloride 100 (98-107) mmol/L Carbon Dioxide 23 (22-30) mmol/L Anion Gap 10 mmol/L BUN 17 (7-17) mg/dL Creatinine 1.13 H (0.52-1.04) mg/dL Est GFR (CKD-EPI)AfAm 57 (>60 ml/min/1.73 sqM) Est GFR (CKD-EPI)NonAf 50 (>60 ml/min/1.73 sqM) Glucose 108 H (74-99) mg/dL Calcium 9.7 (8.4-10.2) mg/dL Magnesium 1.9 (1.6-2.3) mg/dL Total Bilirubin 1.4 H (0.2-1.3) mg/dL AST 25 (14-36) U/L ALT 21 (4-34) U/L Alkaline Phosphatase 85 (38-126) U/L Troponin I (0.000-0.034) ng/mL NT-Pro-B Natriuret Pep pg/mL Total Protein 7.0 (6.3-8.2) g/dL Albumin 4.4 (3.5-5.0) g/dL TSH (0.465-4.680) mIU/L Free T4 (0.78-2.19) ng/dL 07/22/24 07/22/24 Range/Units 12:43 12:43 WBC (3.8-10.6) k/uL RBC (3.80-5.40) m/uL Hgb (11.4-16.0) gm/dL Hct (34.0-46.0) % MCV (80.0-100.0) fL MCH (25.0-35.0) pg MCHC (31.0-37.0) g/dL RDW (11.5-15.5) % Plt Count (150-450) k/uL MPV Neutrophils % % Lymphocytes % % Monocytes % % Eosinophils % % Basophils % % Neutrophils # (1.3-7.7) k/uL Lymphocytes # (1.0-4.8) k/uL Monocytes # (0-1.0) k/uL Eosinophils # (0-0.7) k/uL Basophils # (0-0.2) k/uL PT (10.0-12.5) sec INR (<1.2) APTT (22.0-30.0) sec D-Dimer (<0.60) mg/L FEU Sodium (137-145) mmol/L Potassium (3.5-5.1) mmol/L Chloride (98-107) mmol/L Carbon Dioxide (22-30) mmol/L Anion Gap mmol/L BUN (7-17) mg/dL Creatinine (0.52-1.04) mg/dL Est GFR (CKD-EPI)AfAm (>60 ml/min/1.73 sqM) Est GFR (CKD-EPI)NonAf (>60 ml/min/1.73 sqM) Glucose (74-99) mg/dL Calcium (8.4-10.2) mg/dL Magnesium (1.6-2.3) mg/dL Total Bilirubin (0.2-1.3) mg/dL AST (14-36) U/L ALT (4-34) U/L Alkaline Phosphatase (38-126) U/L Troponin I <0.012 (0.000-0.034) ng/mL NT-Pro-B Natriuret Pep 2550 pg/mL Total Protein (6.3-8.2) g/dL Albumin (3.5-5.0) g/dL TSH 2.170 (0.465-4.680) mIU/L Free T4 1.18 (0.78-2.19) ng/dL Disposition Clinical Impression: Atrial fibrillation with RVR Disposition: ADMITTED IP TO THIS HOSP Is patient prescribed a controlled substance at d/c from ED?: No Referrals: Trav Stern MD [Primary Care Provider] - 1-2 days Time of Disposition: 16:10
[2024-07-22 13:02] LABS: Basophils % (A) 0 %; Eosinophils # (A) 0.2 k/uL (0-0.7); Eosinophils % (A) 3 %; HGB 14.2 gm/dL (11.4-16.0); Lymphocytes # (A) 1.8 k/uL (1.0-4.8); Lymphocytes % (A) 26 %; MCH 32.5 pg (25.0-35.0); MCHC 32.4 g/dL (31.0-37.0); MCV 100.2 fL (80.0-100.0); Mean Platelet Volume 8.7; Monocytes # (A) 0.4 k/uL (0-1.0); Monocytes % (A) 7 %; Neutrophils # (A) 4.3 k/uL (1.3-7.7); Neutrophils % (A) 63 %; Platelet Count 262 k/uL (150-450); RBC 4.39 m/uL (3.80-5.40); RDW 12.8 % (11.5-15.5); WBC 6.8 k/uL (3.8-10.6)
[2024-07-22 13:04] LABS: INR 0.9 (<1.2); Partial Thromboplastin Time 25.3 sec (22.0-30.0); Prothrombin Time 10.5 sec (10.0-12.5)
[2024-07-22 13:16] LABS: ALT 21 U/L (4-34); AST 25 U/L (14-36); African American GFR (CKD) 57 (>60 ml/min/1.73 sqM); Albumin 4.4 g/dL (3.5-5.0); Alkaline Phosphatase 85 U/L (38-126); Anion Gap 10 mmol/L; Blood Urea Nitrogen 17 mg/dL (7-17); Calcium 9.7 mg/dL (8.4-10.2); Carbon Dioxide 23 mmol/L (22-30); Chloride 100 mmol/L (98-107); Glucose 108 mg/dL (74-99); Magnesium 1.9 mg/dL (1.6-2.3); Non-African American GFR(CKD) 50 (>60 ml/min/1.73 sqM); Potassium 4.4 mmol/L (3.5-5.1); Sodium 133 mmol/L (137-145); Total Bilirubin 1.4 mg/dL (0.2-1.3)
--- NOTE | 2024-07-22 13:41 | XR ---
EXAMINATION TYPE: XR chest 2V DATE OF EXAM: 07/22/2024 1:37 PM COMPARISON: Chest radiographs from 07/03/2024 TECHNIQUE: XR chest 2V Frontal and lateral views of the chest. CLINICAL INDICATION:Female, 68 years old with history of dysrhythmia; FINDINGS: Lungs/Pleura: There is no evidence of pleural effusion, focal consolidation, or pneumothorax. Bibasi lar linear scarring. Pulmonary vascularity: Unremarkable. Heart/mediastinum: Cardiomediastinal silhouette is unremarkable. Musculoskeletal: No acute osseous pathology. Other: Loop recorder within the anterior left chest. IMPRESSION: No acute cardiopulmonary disease/process. [facility], , 07/22/2024 1:39 PM
[2024-07-22] MEDS: DILTIAZEM 125 MG in SODIUM CHLORIDE 0.9% 100 ML IV SCH (14:01)
[2024-07-22 15:06] LABS: T4, Free (Free Thyroxine) 1.18 ng/dL (0.78-2.19)
[2024-07-22] MEDS: ONDANSETRON 4 MG/2 ML VIAL IVP STA (15:13)
[2024-07-22] MEDS ORDERED: NALOXONE 0.4 MG/ML 1 ML VIAL IV PRN (16:10)
--- NOTE | 2024-07-22 17:07 | P.HPIM ---
History of Present Illness H&P Date: 07/22/24 Chief Complaint: Symptomatic atrial fibrillation with rapid ventricular response History and physical. Date of service 07/22/2024 patient in the ER Location ER room: 22. Dictation by Dr. Stern. Chief complaint: Patient started to have symptoms of rapid heart rate started on Wednesday morning and continued to start that she cannot get better and she did not felt more weak discomfort with the palpitation. She came to the ER where they found heart rate ranging between [id number] with the RVR symptomatic in the ER seen by Dr. Barfield started her on Cardizem and consulted the cardiology. History of present illness 68 years old white female had recurrent atrial fibrillation with rapid ventricular response. She has been seen recently in the hospital with the second admission and at that time Dr. Sommer. Proceed with defibrillation with the 30 J and she is recurrently did very well and become sinus and went home and they advised her at that time to follow-up with Dr. Easley. Patient seen Dr. Easley PA in the office on Wednesday 1 week from yesterday and she cut down her Lopressor to half a tablet a day apparently I have no idea the reason has and we do not have record from the cardiology PA subsequently she told her to check with the lockstitch front maker to call them for the monitoring the loop which she had in the left upper chest by Dr. Easley to pull out the record and to call her back which has not been done except today told her that she needs to be sooner in August With the new event and symptomatic atrial fibrillation started on morning of date of 07/21/2024 and continue progressed to today with the loss of function weakness inability to navigate at home and meanwhile her heart rate was accelerating meanwhile she did not have no any caffeine derivative and no pop or coffee or tea. She patient came to the hospital where she has now Cardizem drip waiting for car diology to assess and adjust. Her currently blood pressure is low in the 94/68 at the time of the exam and initially when she came to the ER her vital sign indicating that temperature was 90 7.8F oral, respiratory rate 20/min and her heart rate was between 100 to 123 bpm regular with the blood pressure was 138/87 with a mean 104 and oxygen saturation 97% subsequently her blood pressure drop to 107/71 and continue to drop with the underlying Cardizem drip to control half a tablet once a day at [facility] this is after the PA changing her medication about 10 days ago on Wednesday She is on. And they consulted the cardiology. Past medical history cardiac arrhythmia with the atrial fibrillation on an ticoagulant and she had a recurrent episode in the spite of the cardioversion that she had recently by Dr. Sommer. She had history of medication currently used 1. Eliquis 5 mg twice a day #2 atorvastatin 10 mg once a day at p.m./bedtime 3. She is on metoprolol half a tablet equal to 12.5 mg of metoprolol tartrate at acetate as the PA for Dr. Easley did adjusted that on 10 days ago Wednesday. Help losartan she take 1/2 tablet every day which has been held with the blood pressure is currently low. 5. She is on flecainide acetate she take 1 tablet every 12 hour. In the ER patient placed on Aldactone and I held it because of the blood pressure dropping down. No evidence of edema or congestive heart failure in the chest x-ray. Allergy she is allergic to fentanyl and hydrocodone. Added to her past medical history the hypertension hyperlipidemia, obesity. And arrhythmia and patient on anticoagulant. Social history she is and 1 Cardiovascular palpitation and generalized weakness Respiratory no cough or expectoration and wheezing comfortably no clubbing or cyanosis GI no diarrhea, constipation and no abdominal pain no nausea no vomiting vomiting no hematochezia or hematemesis no dysuria or hematuria Musculoskeletal generalized weakness with the first heart rate unable to manage. Neurologically stable Psychiatry stable Reviewing the rest of the 14 [place] noncontributory. Physical exam: Head was normocephalic atraumatic pupil was equal reactive conjunctiva was pink sclera was nonicteric and oropharynx was normal with natural teeth able to eat swallow Neck was supple no JVD no thyromegaly no lymphadenopathy trachea midline Chest is clear to auscultation percussion no wheezes no rhonchi's no evidence of congestive heart failure Abdomen is soft obese positive bowel sound extremities no edema and positive pulses. And Cardiac heart rate still in the average of 120 bpm and respiratory rate 18, blood pressure 94/68 and mean 76 oxygen saturation is 98%. And with the main concern was consultation with the cardiology Assessment: 1. Symptomatic atrial fibrillation with the heart rate ranging between 123 over 120/min recorded on the computer. Her blood pressure currently 94/68 with the the Cardizem drip. 2. Current medication did not help the recurrence of the atrial fibrillation. And we will be 3. With holding the losartan as well as with holding the Aldactone as well and cardiology needs to be called for the atrial fibrillation with RVR. However will continue her other medication including the atorvastatin Plan: Adjusting medication #2 patient on Cardizem drip in the ER and cardiology will be handling Cardizem drip next is Diet cardiac diet and continue negative turner apprentice. Past Medical History Past Medical History: Atrial Fibrillation, Hyperlipidemia, Hypertension, Osteoarthritis (OA), Sleep Apnea/CPAP/BIPAP Additional Past Medical History / Comment(s): ECtopic , abnormal stress test. Hx. of A-Fib., LOOP MONITOR PUT IN ON 2023 History of Any Multi-Drug Resistant Organisms: None Reported Past Surgical History: Cardiac Ablation, Section, Cholecystectomy, Heart Catheterization, Orthopedic Surgery Additional Past Surgical History / Comment(s): eye surgery, R knee scope, L Rotator cuff., LOOP MONITOR, COLONOSCOPY 2023(POLYPS) atrial ablation Past Anesthesia/Blood Transfusion Reactions: Postoperative Nausea & Vomiting (PONV) Additional Past Anesthesia/Blood Transfusion Reaction / Comment(s): Vomiting af ter anesthesia. Past Psychological History: No Psychological Hx Reported Smoking Status: Never smoker Past Alcohol Use History: None Reported Past Drug Use History: None Reported - Past Family History Mother Family Medical History: No Reported History Medications and Allergies Home Medications Medication Instructions Recorded Confirmed Type Apixaban [Eliquis] 5 mg PO BID 04/01/21 07/22/24 History Atorvastatin [Lipitor] 10 mg PO HS 04/01/21 07/22/24 History Flecainide [Tambocor] 50 mg PO Q12HR 06/28/24 07/22/24 History Spironolactone 50 mg PO DAILY 06/28/24 07/22/24 History Losartan [Cozaar] 75 mg PO DAILY 07/22/24 07/22/24 History Metoprolol Tartrate [Lopressor] 12.5 mg PO HS 07/22/24 07/22/24 History Allergies Allergy/AdvReac Type Severity Reaction Status Date / Time hydrocodone [From Vicodin] Allergy Unknown Verified 07/22/24 15:37 fentanyl AdvReac Vomiting Verified 07/22/24 15:37 Physical Exam Vitals: Vital Signs Temp Pulse Resp BP Pulse Ox 07/22/24 16:26 120 H 18 94/68 98 07/22/24 15:16 90 18 97/74 97 07/22/24 14:35 123 H 18 107/71 98 07/22/24 12:13 97.8 F 100 20 138/87 97 Intake and Output 07/22/24 07/22/24 07/22/24 06:59 14:59 22:59 Other: Weight 108.862 kg Results CBC & Chem 7: 07/22/24 12:43 07/22/24 12:43 Labs: Abnormal Lab Results - Last 24 Hours (Table) 07/22/24 07/22/24 Range/Units 12:43 12:43 MCV 100.2 H (80.0-100.0) fL Sodium 133 L (137-145) mmol/L Creatinine 1.13 H (0.52-1.04) mg/dL Glucose 108 H (74-99) mg/dL Total Bilirubin 1.4 H (0.2-1.3) mg/dL
[2024-07-22] MEDS: ATORVASTATIN 10 MG TAB PO SCH (21:28)
[2024-07-22] MEDS: APIXABAN 5 MG TAB PO SCH (21:28)
[2024-07-22] MEDS: FLECAINIDE 50 MG TAB PO SCH (21:28)
[2024-07-22] MEDS: METOPROLOL TARTRATE 25 MG TAB PO SCH (21:28)
[2024-07-23] MEDS: METOPROLOL TARTRATE 12.5 MG TAB PO SCH (08:44)
[2024-07-23] MEDS ORDERED: SPIRONOLACTONE 25 MG TAB PO SCH (09:00)
[2024-07-23] MEDS ORDERED: LOSARTAN 50 MG TAB PO SCH (09:00)
[2024-07-23 09:20] LABS: ALT 18 U/L (8-44); AST 18 U/L (13-35); Albumin 3.9 g/dL (3.8-4.9); Albumin/Globulin Ratio 1.95 Ratio (1.60-3.17); Alkaline Phosphatase 79 U/L (41-126); BUN/Creat Ratio 13.54 Ratio (12.00-20.00); Blood Urea Nitrogen 17.6 mg/dL (9.0-27.0); Calcium 9.1 mg/dL (8.7-10.3); Carbon Dioxide 20.2 mmol/L (21.6-31.8); Chloride 104 mmol/L (96-109); Glucose 95 mg/dL (70-110); Potassium 4.7 mmol/L (3.5-5.5); Sodium 135 mmol/L (135-145); Total Bilirubin 0.8 mg/dL (0.3-1.2); Total Protein 5.9 g/dL (6.2-8.2)
[2024-07-23 09:21] LABS: Basophils # (A) 0.04 X 10*3/uL (0.00-0.10); Basophils % (A) 0.6 %; Eosinophils # (A) 0.22 X 10*3/uL (0.04-0.35); Eosinophils % (A) 3.4 %; HCT 38.2 % (37.2-46.3); Lymphocytes # (A) 2.66 X 10*3/uL (0.90-5.00); Lymphocytes % (A) 40.8 %; MCH 33.3 pg (27.0-32.0); MCV 97.9 FL (80.0-97.0); Mean Platelet Volume 11.9 FL (9.5-12.2); Monocytes # (A) 0.51 X 10*3/uL (0.20-1.00); Monocytes % (A) 7.8 %; NRBC Per 100 WBC 0 X 10*3/uL (0.00-0.01); Neutrophils # (A) 3.08 X 10*3/uL (1.80-7.70); Neutrophils % (A) 47.2 %; Platelet Count 251 X 10*3/uL (140-440); RDW 12.8 % (11.5-14.5); WBC 6.52 X 10*3/uL (4.50-10.00)
[2024-07-23 09:33] LABS: Magnesium 2.1 mg/dL (1.5-2.4)
--- NOTE | 2024-07-23 10:25 | P.CRDCN ---
History of Present Illness History of present illness: HISTORY OF PRESENT ILLNESS: This is a 68-year-old female with a past medical history significant for atrial fibrillation with pulmonary vein isolation, hyperlipidemia, hypertension, sick sinus syndrome, and mitral regurgitation. Patient follows in the office with Dr. Easley. We have been asked to see the patient in consultation for A-fib with RVR. Patient examined at the bedside. Patient presented to the hospital with a chief complaint of palpitations. Patient was found to be in atrial flutter and was started on IV Cardizem. Patient did become bradycardic overnight with a heart rate in the 30s40s and her Cardizem was placed on hold. This morning her heart rate is in the [id number]. She currently denies any chest pain or pressure. She denies any shortness of breath. Blood pressure stable. DIAGNOSTICS: - EKG reveals atrial flutter with RVR - Chest xray negative for acute process. - Laboratory data: WBC 6.8. Hemoglobin 14.2. Platelet count 262. D-dimer 0.17. Sodium 133. Potassium 4.4. BUN 17. Creatinine 1.13. Troponin negative x 1. proBNP 2550. TSH 2.170. - Current home cardiac medications include metoprolol tartrate 12.5 mg at night, Eliquis 5 mg twice a day, atorvastatin 10 mg at night, flecainide 50 mg twice a day, losartan 75 mg daily, Aldactone 50 mg daily. - Most recent echocardiogram obtained in November 2022 revealed ejection fraction 55%, mild AI, mild to moderate MR, moderate TR - Cardiac catheterization history: October 2022 revealing normal coronary arteries - Patient underwent cardioversion by Dr. Griffith on 06/28/2024 with 200 J with conversion to sinus mechanism REVIEW OF SYSTEMS: At the time of my exam: CONSTITUTIONAL: Denies fever or chills. HEENT: Denies blurred vision, vision changes, or eye pain. Denies hemoptysis CARDIOVASCULAR: Denies chest pain. Denies orthopnea. Denies PND. Denies palpitations RESPIRATORY: Denies shortness of breath. GASTROINTESTINAL: Denies abdominal pain. Denies nausea or vomiting. HEMATOLOGIC: Denies bleeding disorders. GENITOURINARY: Denies any blood in urine. SKIN: Denies pruitis. Denies rash. PHYSICAL EXAM: VITAL SIGNS: Reviewed. GENERAL: Well-developed in no acute distress. HEENT: Head is normocephalic. Pupils are equal, round. Sclerae anicteric. Mucous membranes of the mouth are moist. Neck supple. No JVD or thyromegaly LUNGS: Respirations even and unlabored. Lungs essentially clear to auscultation bilaterally. HEART: Mildly tachycardic. Regular rate and rhythm. S1 and S2 heard. ABDOMEN: Soft. Nondistended. Nontender. EXTREMITIES: Normal range of motion. No clubbing or cyanosis. Peripheral pulses intact. No lower extremity edema NEUROLOGIC: Awake and alert. Oriented x 3. ASSESSMENT: Typical atrial flutter/atrial tachycardia with RVR Sick sinus syndrome with significant bradycardia in the 30s40s on IV Cardizem Recent cardioversion, 06/28/2024 Paroxysmal atrial fibrillation status post pulmonary vein isolation Hyperlipidemia Normal coronary arteries, per cath 2022 Hypertension Mild to moderate MR and mild TR PLAN: Obtain 2D echo to assess cardiac structure and function Discontinue IV Cardizem Increase metoprolol tartrate to 12.5 mg twice a day Continue telemetry monitoring Okay for patient's heart rates to be higher with rates into the 120s. Patient has sick sinus syndrome with inability to tolerate high doses of beta-blockers. Will consult Dr. Easley, site worker, for evaluation Further recommendations pending patient course Nurse practitioner note has been reviewed by physician. Signing provider agrees with the documented findings, assessment, and plan of care documented by ALTERNATIVE FINANCING SPECIALIST as a scribe. Past Medical History Past Medical History: Atrial Fibrillation, Hyperlipidemia, Hypertension, Osteoarthritis (OA), Sleep Apnea/CPAP/BIPAP Additional Past Medical History / Comment(s): ECtopic , abnormal stress test. Hx. of A-Fib., LOOP MONITOR PUT IN ON 2023 History of Any Multi-Drug Resistant Organisms: None Reported Past Surgical History: Cardiac Ablation, Section, Cholecystectomy, Heart Catheterization, Orthopedic Surgery Additional Past Surgical History / Comment(s): eye surgery, R knee scope, L Rotator cuff., LOOP MONITOR, COLONOSCOPY 2023(POLYPS) atrial ablation jun 2024 cardioversion Past Anesthesia/Blood Transfusion Reactions: Postoperative Nausea & Vomiting (PONV) Additional Past Anesthesia/Blood Transfusion Reaction / Comment(s): Vomiting after anesthesia. Past Psychological History: No Psychological Hx Reported Smoking Status: Never smoker Past Alcohol Use History: None Reported Past Drug Use History: None Reported - Past Family History Mother Family Medical History: No Reported History Medications and Allergies Home Medications Medication Instructions Recorded Confirmed Type Apixaban [Eliquis] 5 mg PO BID 04/01/21 07/22/24 History Atorvastatin [Lipitor] 10 mg PO HS 04/01/21 07/22/24 History Flecainide [Tambocor] 50 mg PO Q12HR 06/28/24 07/22/24 History Spironolactone 50 mg PO DAILY 06/28/24 07/22/24 History Losartan [Cozaar] 75 mg PO DAILY 07/22/24 07/22/24 History Metoprolol Tartrate [Lopressor] 12.5 mg PO HS 07/22/24 07/22/24 History Allergies Allergy/AdvReac Type Severity Reaction Status Date / Time hydrocodone [From Vicodin] Allergy Unknown Verified 07/22/24 15:37 egg AdvReac Nausea & Verified 07/23/24 08:43 Vomiting Egg Derived AdvReac Nausea & Verified 07/23/24 08:43 Vomiting fentanyl AdvReac Vomiting Verified 07/22/24 15:37 Physical Exam Vitals: Vital Signs Temp Pulse Pulse Resp BP BP BP 07/23/24 01:10 97.5 F L 69 18 91/60 07/22/24 18:40 98.2 F 108 H 18 102/65 07/22/24 17:54 73 18 92/73 07/22/24 16:26 120 H 18 94/68 07/22/24 15:16 90 18 97/74 07/22/24 14:35 123 H 18 107/71 07/22/24 12:13 97.8 F 100 20 138/87 Pulse Ox 07/23/24 01:10 96 07/22/24 18:40 98 07/22/24 17:54 99 07/22/24 16:26 98 07/22/24 15:16 97 07/22/24 14:35 98 07/22/24 12:13 97 Intake and Output 07/22/24 07/23/24 07/23/24 22:59 06:59 14:59 Intake Total 79.5 Balance 79.5 Intake: Intake, IV Titration 79.5 Amount Diltiazem 125 mg In 79.5 Sodium Chloride 0.9% 100 ml @ 5 MG/HR 5 mls/hr IV .Q24H [facility] Rx#:[id number] Other: # Voids 1 2 # Bowel Movements 1 Weight 108.862 kg Results 07/23/24 04:40 07/23/24 04:40 Cardiac Enzymes 07/22/24 07/22/24 Range/Units 12:43 12:43 AST 25 (14-36) U/L Troponin I <0.012 (0.000-0.034) ng/mL Coagulation 07/22/24 Range/Units 12:43 PT 10.5 (10.0-12.5) sec APTT 25.3 (22.0-30.0) sec CBC 07/22/24 Range/Units 12:43 WBC 6.8 (3.8-10.6) k/uL RBC 4.39 (3.80-5.40) m/uL Hgb 14.2 (11.4-16.0) gm/dL Hct 44.0 (34.0-46.0) % Plt Count 262 (150-450) k/uL Comprehensive Metabolic Panel 07/22/24 Range/Units 12:43 Sodium 133 L (137-145) mmol/L Potassium 4.4 (3.5-5.1) mmol/L Chloride 100 (98-107) mmol/L Carbon Dioxide 23 (22-30) mmol/L BUN 17 (7-17) mg/dL Creatinine 1.13 H (0.52-1.04) mg/dL Glucose 108 H (74-99) mg/dL Calcium 9.7 (8.4-10.2) mg/dL AST 25 (14-36) U/L ALT 21 (4-34) U/L Alkaline Phosphatase 85 (38-126) U/L Total Protein 7.0 (6.3-8.2) g/dL Albumin 4.4 (3.5-5.0) g/dL Current Medications Generic Name Dose Route Start Last Admin Trade Name Freq PRN Reason Stop Dose Admin Apixaban 5 mg 07/22/24 21:00 07/22/24 21:28 Apixaban 5 Mg Tab PO 5 mg BID SCOTT Administration Protocol Atorvastatin Calcium 10 mg 07/22/24 21:00 07/22/24 21:28 Atorvastatin 10 Mg Tab PO 10 mg HS SCOTT Administration Flecainide Acetate 50 mg 07/22/24 21:00 07/22/24 21:28 Flecainide 50 Mg Tab PO 50 mg Q12HR SCOTT Administration Diltiazem HCl 125 mg/ Sodium 125 mls @ 5 mls/hr 07/22/24 13:30 07/23/24 05:55 Chloride IV 0 mg/hr .Q24H SCOTT 0 mls/hr Infusion 5 MG/HR Metoprolol Tartrate 12.5 mg 07/22/24 21:00 07/22/24 21:28 Metoprolol Tartrate 25 Mg Tab PO 12.5 mg HS SCOTT Administration Naloxone HCl 0.2 mg 07/22/24 16:10 Naloxone 0.4 Mg/Ml 1 Ml Vial IV Q2M PRN Opioid Reversal Intake and Output 07/22/24 07/23/24 07/23/24 22:59 06:59 14:59 Intake Total 79.5 Balance 79.5 Intake: Intake, IV Titration 79.5 Amount Diltiazem 125 mg In 79.5 Sodium Chloride 0.9% 100 ml @ 5 MG/HR 5 mls/hr IV .Q24H [facility] Rx#:[id number] Other: # Voids 1 2 # Bowel Movements 1 Weight 108.862 kg 07/22/24 12:43 07/22/24 12:43
--- NOTE | 2024-07-23 13:16 | P.PN ---
Subjective Progress Note Date: 07/23/24 Principal diagnosis: Diagnosis: 1. Atrial fibrillation with RVR symptomatic with generalized weakness affecting her daily life activities 2. Hypotension with cardiac sound drip 3. With attention mild elevation of the creatinine 4. History of ablation last year 5. History of cardioversion 1 month ago approximately. 6. Obesity 7. On Eliquis anticoagulant. Progress note Date of service 07/23/2024 Medication 628 [address] [place] [address] tSern Patient seen today [id number] and her daughter at bedside. Vital sign indicating temperature 97.5 FL Heart rate is fluctuating and 108 irregular irregularities with the current rate 73 stable with the adjustment of medication by Dr. Whitfield cardiology Patient had during the night hypotension with the effect of cardiac drip which was discontinued, Patient has hot flashes as well as tachybradycardia syndrome. Dr. Whitfield placed her on metoprolol 12.5 mg twice a day. Her vital sign: Blood pressure 91/59 with a mean 60, oxygen saturation on room air 96%. Respiratory rate 18/min. Heart rate 73/min regular On exam: Conscious alert oriented x 3 no acute respiratory distress. Head was normocephalic atraumatic equal reactive conjunctiva was pink sclera was nonicteric extraocular movements are intact. Oropharynx negative with natural teeth able to swallow and eat Neck: Supple no JVD no thyromegaly no lymphadenopathy trachea midline. Chest clear, normal breath sound no wheezes or rhonchi's Heart irregular irregularities no evidence of congestive heart failure Abdomen soft positive bowel sound Extremities no edema. Pulses. Able to urinate normally. Assessment Atrial fibrillation with RVR. With resistant for previous maneuver Dr. Whitfield cardiology consulted Dr. Easley tomorrow for evaluation and treatment. Hypotension which will be improving with the current treatment. Elevated creatinine associated with hypotension with decreased renal perfusion With the possibility of ATN. Plan will check UA clean-catch and repeat BMP. And monitor cardiac arrhythmia. And waiting for Dr. Easley to evaluate and treat. Objective - Vital Signs Vital signs: Vital Signs Temp 97.5 F L 07/23/24 07:00 Pulse 73 07/23/24 07:00 Resp 18 07/23/24 07:00 BP 91/59 07/23/24 07:00 Pulse Ox 96 07/23/24 07:51 FiO2 Intake & Output 07/22/24 07/23/24 07/23/24 18:59 06:59 18:59 Intake Total 79.5 118 Balance 79.5 118 Weight 108.862 kg 108.862 kg Intake: Intake, IV Titration 79.5 Amount Diltiazem 125 mg In 79.5 Sodium Chloride 0.9% 100 ml @ 5 MG/HR 5 mls/hr IV .Q24H [facility] Rx#:[id number] Oral 118 Other: Voiding Method Toilet # Voids 2 # Bowel Movements 1 - Labs CBC & Chem 7: 07/23/24 04:40 07/23/24 04:40 Labs: Abnormal Lab Results - Last 24 Hours (Table) 07/22/24 07/22/24 07/23/24 Range/Units 12:43 12:43 04:40 RBC (4.10-5.20) X 10*6/uL MCV 100.2 H (80.0-100.0) fL MCH (27.0-32.0) pg Sodium 133 L (137-145) mmol/L Carbon Dioxide 20.2 L (21.6-31.8) mmol/L Creatinine 1.13 H (0.52-1.04) mg/dL Est GFR (CKD-EPI) 45 L (>=60) Glucose 108 H (74-99) mg/dL Total Bilirubin 1.4 H (0.2-1.3) mg/dL Total Protein 5.9 L (6.2-8.2) g/dL 07/23/24 Range/Units 04:40 RBC 3.90 L (4.10-5.20) X 10*6/uL MCV 97.9 H (80.0-100.0) fL MCH 33.3 H (27.0-32.0) pg Sodium (137-145) mmol/L Carbon Dioxide (21.6-31.8) mmol/L Creatinine (0.52-1.04) mg/dL Est GFR (CKD-EPI) (>=60) Glucose (74-99) mg/dL Total Bilirubin (0.2-1.3) mg/dL Total Protein (6.2-8.2) g/dL
[2024-07-23] MEDS: diphenhydrAMINE 25 MG CAP PO PRN (13:59)
[2024-07-23 16:55] LABS: Appearance,Urine Clear (Clear); Bacteria,Urine Rare /hpf; Bilirubin,Urine Negative (Negative); Blood,Urine Negative (Negative); Color,Urine Light Yellow; Glucose,Urine (UA) Negative (Negative); Ketones,Urine Negative (Negative); Leukocyte Esterase,Urine Trace (Negative); Mucus,Urine Rare /hpf; Nitrite,Urine Negative (Negative); PH, Urine 5.5 (5.0-8.0); Protein,Urine Negative (Negative); RBC,Urine 1 /hpf (0-5); Specific Gravity,Urine 1.017 (1.001-1.035); Squamous Epithelial Cell,Urine 1 /hpf (0-4); Urobilinogen,Urine <2.0 mg/dL (<2.0); WBC,Urine 3 /hpf (0-5)
[2024-07-24] MEDS: methylPREDNISolone SOD SUCCIN 250 MG in SODIUM CHLORIDE 0.9% 100 ML IVPB STA (00:22)
--- NOTE | 2024-07-24 09:44 | P.PN ---
Subjective Progress Note Date: 07/24/24 HISTORY OF PRESENT ILLNESS: This is a 68-year-old female with a past medical history significant for atrial fibrillation with pulmonary vein isolation, hyperlipidemia, hypertension, sick sinus syndrome, and mitral regurgitation. Patient follows in the office with Dr. Easley. We have been asked to see the patient in consultation for A-fib with RVR. Patient examined at the bedside. Patient presented to the hospital with a chief complaint of palpitations. Patient was found to be in atrial flutter and was started on IV Cardizem. Patient did become bradycardic overnight with a heart rate in the 30s40s and her Cardizem was placed on hold. This morning her heart rate is in the [id number]. She currently denies any chest pain or pressure. She denies any shortness of breath. Blood pressure stable. DIAGNOSTICS: - EKG reveals atrial flutter with RVR - Chest xray negative for acute process. - Laboratory data: WBC 6.8. Hemoglobin 14.2. Platelet count 262. D-dimer 0.17. Sodium 133. Potassium 4.4. BUN 17. Creatinine 1.13. Troponin negative x 1. proBNP 2550. TSH 2.170. - Current home cardiac medications include metoprolol tartrate 12.5 mg at night, Eliquis 5 mg twice a day, atorvastatin 10 mg at night, flecainide 50 mg twice a day, losartan 75 mg daily, Aldactone 50 mg daily. - Most recent echocardiogram obtained in November 2022 revealed ejection fraction 55%, mild AI, mild to moderate MR, moderate TR - Cardiac catheterization history: October 2022 revealing normal coronary arteries - Patient underwent cardioversion by Dr. Griffith on 06/28/2024 with 200 J with conversion to sinus mechanism 07/24 Patient seen and examined. Patient has been in atrial fibrillation with rate in the 60s and 70s overnight and running low 100s this morning. Patient is currently on Lopressor 12.5 mg twice daily and flecainide 50 mg every 12 hours. Patient is also maintained on Eliquis. Dr. Easley is to see and evaluate patient today. Echocardiogram is pending. PHYSICAL EXAM: VITAL SIGNS: Reviewed. GENERAL: Well-developed in no acute distress. HEENT: Head is normocephalic. Pupils are equal, round. Sclerae anicteric. Mucous membranes of the mouth are moist. Neck supple. No JVD or thyromegaly LUNGS: Respirations even and unlabored. Lungs essentially clear to auscultation bilaterally. HEART: Mildly tachycardic. Regular rate and rhythm. S1 and S2 heard. ABDOMEN: Soft. Nondistended. Nontender. EXTREMITIES: Normal range of motion. No clubbing or cyanosis. Peripheral pulses intact. No lower extremity edema NEUROLOGIC: Awake and alert. Oriented x 3. ASSESSMENT: Typical atrial flutter/atrial tachycardia with RVR Sick sinus syndrome with significant bradycardia in the 30s40s on IV Cardizem Recent cardioversion, 06/28/2024 Paroxysmal atrial fibrillation status post pulmonary vein isolation Hyperlipidemia Normal coronary arteries, per cath 2022 Hypertension Mild to moderate MR and mild TR PLAN: Obtain 2D echo to assess cardiac structure and function Continue increased frequency of metoprolol tartrate to 12.5 mg twice a day Continue flecainide 50 mg twice daily and Eliquis Continue telemetry monitoring Okay for patient's heart rates to be higher with rates into the 120s. Patient has sick sinus syndrome with inability to tolerate high doses of beta-blockers. Will consult Dr. Easley, dial printer, for evaluation Nurse practitioner note has been reviewed by physician. Signing provider agrees with the documented findings, assessment, and plan of care documented by TIME STUDY TECHNICIAN as a scribe. Objective - Vital Signs Vital signs: Vital Signs Temp 98.2 F 07/24/24 07:00 Pulse 111 H 07/24/24 07:00 Resp 18 07/24/24 07:00 BP 133/78 07/24/24 07:00 Pulse Ox 93 L 07/24/24 07:00 FiO2 Intake & Output 07/23/24 07/24/24 07/24/24 18:59 06:59 18:59 Intake Total 236 Balance 236 Intake: Oral 236 Other: Voiding Method Toilet Toilet # Voids 2 2 # Bowel Movements 1 - Labs CBC & Chem 7: 07/23/24 04:40 07/23/24 04:40 Labs: Abnormal Lab Results - Last 24 Hours (Table) 07/23/24 Range/Units 16:20 Ur Leukocyte Esterase Trace H (Negative) Urine Bacteria Rare H (None) /hpf Urine Mucus Rare H (None) /hpf
[2024-07-24 09:46] LABS: Blood Urea Nitrogen 31.5 mg/dL (9.0-27.0); Calcium 8.9 mg/dL (8.7-10.3); Carbon Dioxide 21.6 mmol/L (21.6-31.8); Chloride 104 mmol/L (96-109); Glucose 145 mg/dL (70-110); Potassium 5.3 mmol/L (3.5-5.5); Sodium 136 mmol/L (135-145)
[2024-07-24] MEDS: SODIUM CHLORIDE 0.9% 1,000 ML IV SCH ×2 (12:34)
--- NOTE | 2024-07-24 13:32 | P.PN ---
Subjective Progress Note Date: 07/24/24 (Persistent atrial fibrillation with RVR) Progress note Date of service 07/24/2024 Location 620 bed 1 food service [address]ation [address] Stern Patient has interval history of severe itching during the night and they called me at midnight last night with the complaint Benadryl is not helping and she needs something to stop itching. Patient treated with Solu-Medrol 40 mg IV piggyback slowly and did help however she still have still area of itching, this itching started when she came to the floor and I see scratching on the physical exam but I am not sure of clear etiology The pruritus/itching has improved and we will give her triamcinolone cream 0.1% to apply up to 4 times a day locally on the skin with the future for thorough planning of investigation as outpatient, I did not believe that flecainide causing this rash as she was taking it as outpatient and did not give any rashes but did not control the atrial fibrillation Patient her heart rate at the time of the exam was 124 and she feel that she is still racing. Dr. Whitfield did see her today and he spoke to Dr. Easley who will schedule her for studies this evening Vital sign indicating temperature 98.2 F oral, heart rate 124 on the monitor, respiratory rate 18 nonlabored, blood pressure 133/78 with a mean blood pressure 96 that is with the effect of the steroid Solu-Medrol her oxygen saturation has been fluctuating between 97 and 93. On room air On examination: Patient conscious alert oriented x 3 HEENT: Head was normocephalic atraumatic, pupil was equal reactive conjunctiva was pink sclera was nonicteric extraocular muscle movement is intact Neck was supple no JVD no thyromegaly no lymphadenopathy trachea midline Chest was clear to auscultation and percussion and no wheezes or rhonchi's Heart irregular irregularities with the atrial fibrillation with RVR Abdomen obese positive bowel sound no tenderness Extremities no edema and positive pulses. Neurologically stable no lateralizing sign able to stand up but feeling dizzy with her rapid heart rate Psychiatry stable Laboratories Sodium 136 potassium 5.3 chloride 104, carbon dioxide 21, anion gap 10.4, and BUN 31 and creatinine still as mentioned is yesterday went up to 1.3 and today 1.4 with the mild change with the episodic and no IV. Her BUN/creatinine ratio also increased to 22.5. Her glucose is 145 with the effect of the steroid and calcium is 8.9 With the procedure IV fluid will be started and hopefully that will help the renal function and per order of Dr. Easley. For the possible studies and the treatment for the atrial fibrillation On admission the thyroid function was normal and her B-type natriuretic peptide was 2550 elevated for her age. Echocardiogram has been ordered but not done yet to evaluate the left ventricular function and also the diastolic function. Assessment: And plan 1. Recurrent episode of atrial fibrillation and hypotension 2. Failure of previous ablation 3. Failure of cardioversion. 4. Failure of flecainide for keeping the atrial fibrillation and controlled 5. Underlying laboratory result indicating acute kidney function impairment/acute kidney injury 6. Dr. Easley already ordered 0.9 normal saline 100 cc an hour which probably will help the renal function to improve. 7. I ordered BMP as well as CBC for tomorrow Objective - Vital Signs Vital signs: Vital Signs Temp 98.2 F 07/24/24 07:00 Pulse 111 H 07/24/24 07:00 Resp 18 07/24/24 07:00 BP 133/78 07/24/24 07:00 Pulse Ox 93 L 07/24/24 07:00 FiO2 Intake & Output 07/23/24 07/24/24 07/24/24 18:59 06:59 18:59 Intake Total 236 Balance 236 Intake: Oral 236 Other: Voiding Method Toilet Toilet # Voids 2 2 # Bowel Movements 1 - Labs CBC & Chem 7: 07/23/24 04:40 07/24/24 05:00 Labs: Abnormal Lab Results - Last 24 Hours (Table) 07/23/24 07/24/24 Range/Units 16:20 05:00 BUN 31.5 H (9.0-27.0) mg/dL Est GFR (CKD-EPI) 41 L (>=60) BUN/Creatinine Ratio 22.50 H (12.00-20.00) Ratio Glucose 145 H (70-110) mg/dL Ur Leukocyte Esterase Trace H (Negative) Urine Bacteria Rare H (None) /hpf Urine Mucus Rare H (None) /hpf
[2024-07-24] MEDS: IV FLUID CONTINUATION 1,000 ML IV ONE (17:42)
[2024-07-24] MEDS ORDERED: PROPOFOL 10 MG/ML 20 ML VIAL IV ONE (17:42)
[2024-07-24] MEDS ORDERED: LIDOCAINE 1% INJ 10MG/ML (20 ML MDV) ONE (17:42)
--- NOTE | 2024-07-24 18:21 | P.EPPROC ---
- EP Procedure Note Electrophysiology Procedure Note: Diagnosis 2-1 atrial tachycardia History of A-fib ablation in the past On anticoagulation On 50 mg twice daily of flecainide at this time Details 200 J biphasic shock resulted in conversion to atrial fibrillation The patch position was changed and she was successfully cardioverted with a se cond 200 J biphasic shock to sinus rhythm Plan Increase flecainide to 75 mg twice daily Continue anticoagulation I discussed the importance of proceeding with an atrial tachycardia ablation She appears to have upright P waves in the inferior leads.
[2024-07-24] MEDS: FLECAINIDE 50 MG TAB PO SCH (20:24)
[2024-07-24] MEDS: TRIAMCINOLONE 0.1% CREAM 80 GM TUBE TOPICAL PRN (20:27)
[2024-07-25 00:29] VITALS: RESP 16
[2024-07-25 09:08] LABS: BUN/Creat Ratio 20.17 Ratio (12.00-20.00); Blood Urea Nitrogen 24.2 mg/dL (9.0-27.0); Calcium 9.3 mg/dL (8.7-10.3); Carbon Dioxide 20.7 mmol/L (21.6-31.8); Chloride 103 mmol/L (96-109); Glucose 142 mg/dL (70-110); Potassium 4.7 mmol/L (3.5-5.5); Sodium 134 mmol/L (135-145)
[2024-07-25 09:37] LABS: Basophils # (A) 0.01 X 10*3/uL (0.00-0.10); Basophils % (A) 0.1 %; Eosinophils # (A) 0 X 10*3/uL (0.04-0.35); Eosinophils % (A) 0 %; HCT 36.5 % (37.2-46.3); HGB 12.2 g/dL (12.0-15.0); Lymphocytes # (A) 1.06 X 10*3/uL (0.90-5.00); Lymphocytes % (A) 7.5 %; MCH 32.9 pg (27.0-32.0); MCHC 33.4 g/dL (32.0-37.0); MCV 98.4 FL (80.0-97.0); Mean Platelet Volume 12.3 FL (9.5-12.2); Monocytes % (A) 6.4 %; NRBC Per 100 WBC 0 X 10*3/uL (0.00-0.01); Neutrophils # (A) 12.03 X 10*3/uL (1.80-7.70); Neutrophils % (A) 85.2 %; Platelet Count 279 X 10*3/uL (140-440); RBC 3.71 X 10*6/uL (4.10-5.20); WBC 14.11 X 10*3/uL (4.50-10.00)
--- NOTE | 2024-07-25 10:47 | CA ---
Transthoracic Echo Report Name: Candy Barton Age: 68 Gender: F : 1955 Exam Date: 07/25/2024 09:29 Exam Location: [place] [facility] Ht (in): 69 Wt (lb): 240 Ordering Physician: Shelia Julio Attending/Referring Phys: [id number], Sumanth Keyboarding Teacher Caroline Aragon RDCS Procedure CPT: Indications: Atrial flutter, LV function Cardiac Hx: Technical Quality: Technically difficult study Contrast 1: Definity Total Dose (mL): 3 Contrast 2: Total Dose (mL): MEASUREMENTS (Male / Female) Normal Values 2D ECHO LVOT Diameter 2.4 cm LV Diastolic Volume MOD BP 114.9 cm??? 67 - 155 / 56 - 104 cm??? LV Systolic Volume MOD BP 44.3 cm??? 22 - 58 / 19 - 49 cm??? LV Ejection Fraction MOD BP 61.5 % >= 55 % LV Cardiac Index MOD BP 1898.0 cm???/min???m??? LV Diastolic Volume MOD 4C 106.6 cm??? LV Systolic Volume MOD 4C 40.8 cm??? LV Ejection Fraction MOD 4C 61.7 % LV Cardiac Index MOD 4C 1768.5 cm???/min???m??? LV Diastolic Length 4C 7.5 cm LV Systolic Length 4C 5.7 cm LV Diastolic Volume MOD 2C 116.6 cm??? LV Systolic Volume MOD 2C 46.3 cm??? LV Ejection Fraction MOD 2C 60.2 % LV Cardiac Index MOD 2C 1888.0 cm???/min???m??? LV Diastolic Length 2C 7.0 cm LV Systolic Length 2C 5.3 cm LA Volume 79.3 cm??? 18 - 58 / 22 - 52 cm??? LA Volume Index 33.8 cm???/m??? 16 - 28 cm???/m??? DOPPLER AV Peak Velocity 116.0 cm/s AV Peak Gradient 5.4 mmHg AV Mean Velocity 79.0 cm/s AV Mean Gradient 2.8 mmHg AV Velocity Time Integral 25.9 cm LVOT Peak Velocity 91.5 cm/s LVOT Peak Gradient 3.3 mmHg LVOT Velocity Time Integral 21.8 cm LVOT Stroke Volume 96.7 cm??? LVOT Stroke Volume Index 43.3 ml/m??? LVOT Cardiac Index 2600.7 cm???/min???m??? AV Area Cont Eq vti 3.7 cm??? AV Area Cont Eq pk 3.5 cm??? MV Area PHT 5.0 cm??? Mitral E Point Velocity 80.9 cm/s Mitral A Point Velocity 32.0 cm/s Mitral E to A Ratio 2.5 MV Deceleration Time 151.3 ms TR Peak Velocity 272.6 cm/s TR Peak Gradient 29.7 mmHg Right Atrial Pressure 5.0 mmHg Pulmonary Artery Systolic Pressu 34.7 mmHg Right Ventricular Systolic Press 34.7 mmHg PV Peak Velocity 56.3 cm/s PV Peak Gradient 1.3 mmHg FINDINGS Left Ventricle Left ventricular ejection fraction is estimated at 55-60 %. Mildly increased left ventricular diastolic volume. Left ventricular wall thickness normal. No obvious regional wall motion abnormalities. Right Ventricle Right ventricle not well visualized. Mildly reduced right ventricular global systolic function. Mild pulmonary hypertension. Right Atrium Normal right atrial size. Left Atrium Mildly increased left atrial volume. Mildly increased left atrial area. Mitral Valve Mitral valve thickened. No evidence for mitral valve prolapse. No mitral stenosis. Trace mitral regurgitation. Aortic Valve Aortic valve not well visualized. No aortic valve stenosis or regurgitation. Tricuspid Valve Structurally normal tricuspid valve. No tricuspid stenosis. Mild tricuspid regurgitation. Pulmonic Valve Pulmonic valve not well visualized. Pericardium No pericardial effusion. Aorta Aortic annulus normal. CONCLUSIONS Normal LV size and systolic function. Mild enlargement of left atrium. Mitral annular calcification with mild mitral insufficiency. Mild tricuspid insufficiency. No significant pulmonary hypertension. No pericardial effusion Previewed by: Dr. Brandt Bennett MD (Electronically Signed) Final Date: 25 July 2024 10:46
--- NOTE | 2024-07-25 13:34 | P.PN ---
Subjective Progress Note Date: 07/25/24 HISTORY OF PRESENT ILLNESS: This is a 68-year-old female with a past medical history significant for atrial fibrillation with pulmonary vein isolation, hyperlipidemia, hypertension, sick sinus syndrome, and mitral regurgitation. Patient follows in the office with Dr. Easley. We have been asked to see the patient in consultation for A-fib with RVR. Patient examined at the bedside. Patient presented to the hospital with a chief complaint of palpitations. Patient was found to be in atrial flutter and was started on IV Cardizem. Patient did become bradycardic overnight with a heart rate in the 30s40s and her Cardizem was placed on hold. This morning her heart rate is in the [id number]. She currently denies any chest pain or pressure. She denies any shortness of breath. Blood pressure stable. DIAGNOSTICS: - EKG reveals atrial flutter with RVR - Chest xray negative for acute process. - Laboratory data: WBC 6.8. Hemoglobin 14.2. Platelet count 262. D-dimer 0.17. Sodium 133. Potassium 4.4. BUN 17. Creatinine 1.13. Troponin negative x 1. proBNP 2550. TSH 2.170. - Current home cardiac medications include metoprolol tartrate 12.5 mg at night, Eliquis 5 mg twice a day, atorvastatin 10 mg at night, flecainide 50 mg twice a day, losartan 75 mg daily, Aldactone 50 mg daily. - Most recent echocardiogram obtained in November 2022 revealed ejection fraction 55%, mild AI, mild to moderate MR, moderate TR - Cardiac catheterization history: October 2022 revealing normal coronary arteries - Patient underwent cardioversion by Dr. Griffith on 06/28/2024 with 200 J with conversion to sinus mechanism 07/24 Patient seen and examined. Patient has been in atrial fibrillation with rate in the 60s and 70s overnight and running low 100s this morning. Patient is currently on Lopressor 12.5 mg twice daily and flecainide 50 mg every 12 hours. Patient is also maintained on Eliquis. Dr. Easley is to see and evaluate patient today. Echocardiogram is pending. 07/25 Patient seen and examined. Yesterday, patient was seen by Dr. Easley and underwent electrocardioversion for atrial fibrillation to sinus rhythm. He also increase flecainide to 75 mg twice daily with plan to continue anticoagulation. He also discussed with the patient plan for atrial tachycardia ablation to be done today if schedule allows. Patient is currently in sinus rhythm. Blood pressure 91/57, heart rate 65, pulse ox 97% on room air. Echocardiogram reveals normal LV size and systolic function. Mild mitral insuf ficiency. Mild tricuspid insufficiency. No pulmonary hypertension. No pericardial effusion. PHYSICAL EXAM: VITAL SIGNS: Reviewed. GENERAL: Well-developed in no acute distress. HEENT: Head is normocephalic. Pupils are equal, round. Sclerae anicteric. Mucous membranes of the mouth are moist. Neck supple. No JVD or thyromegaly LUNGS: Respirations even and unlabored. Lungs essentially clear to auscultation bilaterally. HEART: Mildly tachycardic. Regular rate and rhythm. S1 and S2 heard. ABDOMEN: Soft. Nondistended. Nontender. EXTREMITIES: Normal range of motion. No clubbing or cyanosis. Peripheral pulses intact. No lower extremity edema NEUROLOGIC: Awake and alert. Oriented x 3. ASSESSMENT: Typical atrial flutter/atrial tachycardia with RVR Sick sinus syndrome with significant bradycardia in the 30s40s on IV Cardizem Recent cardioversion, 06/28/2024 Paroxysmal atrial fibrillation status post pulmonary vein isolation Hyperlipidemia Normal coronary arteries, per cath 2022 Hypertension Mild to moderate MR and mild TR PLAN: Continue increased frequency of metoprolol tartrate to 12.5 mg twice a day Continue increased dose flecainide 75 mg twice daily and Eliquis Continue telemetry monitoring Plan for atrial tachycardia ablation with Dr. Easley today. Nurse practitioner note has been reviewed by physician. Signing provider agrees with the documented findings, assessment, and plan of care documented by SYSTEMS SOFTWARE MANAGER as a scribe. Objective - Vital Signs Vital signs: Vital Signs Temp 97.7 F 07/25/24 01:51 Pulse 65 07/25/24 01:51 Resp 16 07/25/24 01:51 BP 91/57 07/25/24 01:51 Pulse Ox 97 07/25/24 01:51 FiO2 Intake & Output 07/24/24 07/25/24 07/25/24 18:59 06:59 18:59 Intake Total 200 Balance 200 Weight 108.8 kg Intake: IV 200 Other: Voiding Method Toilet # Voids 5 2 - Labs CBC & Chem 7: 07/25/24 04:10 07/25/24 04:10 Labs: Abnormal Lab Results - Last 24 Hours (Table) 07/24/24 Range/Units 05:00 BUN 31.5 H (9.0-27.0) mg/dL Est GFR (CKD-EPI) 41 L (>=60) BUN/Creatinine Ratio 22.50 H (12.00-20.00) Ratio Glucose 145 H (70-110) mg/dL
[2024-07-25 15:24] VITALS: BP 114/44; PULSE 60; TEMP 97.6
--- NOTE | 2024-07-25 15:45 | P.DS ---
Providers Date of admission: 07/22/24 16:10 Expected date of discharge: 07/25/24 (Cardioverted to sinus by Dr. Easley) Attending physician: Trav Stern Consults: 07/22/24 16:10 Consult Physician Routine Consulting Provider: Brice Griffith Consult Reason/Comments: a fib Do you want consulting provider notified?: Yes 07/23/24 10:22 Consult Physician Routine Consulting Provider: Gigi Easley Consult Reason/Comments: EP eval Do you want consulting provider notified?: Yes, Notify in am Primary care physician: Trav Stern Discharge summary Dictation Location 620 bed 1 Date of service 07/25/2024. 1. Atrial fibrillation/atrial flutter arrhythmia recurrent. Symptomatic. 2. Hypotension and generalized weakness with fatigue secondary to #1 3. Generalized itching treated with Benadryl/Solu-Medrol/triamcinolone 0.1% cream 4. Hyperlipidemia 5. Obesity 6. Acute kidney injury secondary to hypotension on underlying chronic kidney disease stage III gradually recovering. 7. On novel anticoagulant Eliquis. #8 diastolic dysfunction with borderline pulmonary hypertension and elevated proBNP. Consulting physician 1. Dr. Roseann Mauro 2. Dr. Easley Procedure: Cardiac version and testing antiarrhythmic medication. Future plan for ablation. Patient presentation at the ER: Generalized weakness with unable to do her ADL with the feeling of palpitation and atrial fibrillation flutter at home. Patient has close year ablation as well as this year had cardioversion and that is her second cardioversion on this visit Patient also on medication at that time was not helping. Patient admitted to the hospital with the cardiology seen her and at that time they called Dr. Easley the electrophysiologic traffic engineer, and today he took her to his lab able to do cardioversion and she is sinus rhythm and told her that probably in August or September he may do ablation again. Hospital course: Patient has elevated proBNP on admission in association with the hypotension and found also that creatinine has been increased secondary to episode of hypotension with the initial treatment with cardiac some drip and the blood pressure down to the 80-90 systolic. Patient seen by Dr. Easley and started IV fluid and improve renal function and advised to drink fluid and water to replacement. Dr. Easley increase metoprolol to 12.5 mg twice a day as flecainide to 75 mg twice a day. Aldactone has been discontinued as well as the losartan with the hypotension and no edema On examination on discharge Temperature 98.2 F oral, pulse 63/min sinus regular, respiratory rate 16/min nonlabored. Blood pressure 111/69 with a mean 83. Her oxygen saturation on room air 97%. Patient is conscious alert oriented x 3 her daughter at bedside no chest pain no complaint of abdominal pain or leg pain. On 8 exam head was normocephalic atraumatic, pupil equal reactive conjunctiva was pink sclera was nonicteric, oropharynx natural teas and normal hearing. Neck was supple no JVD no thyromegaly no lymphadenopathy trachea midline. Chest is clear normal breath sound no wheezes or rhonchi's Heart: Regular sinus rhythm status. Post cardioversion. By Dr. Easley. Abdomen is soft positive bowel sounds obese Extremities no edema positive pulses Psychiatry stable Neurologically stable no lateralizing sign no motor or sensory deficit Assessment: Plan: Patient will be discharged today to follow-up with Dr. Easley Will see her in 1 week or earlier if she needed. Discussed with her the medication Also I did review consultation of the medication as well Advised her that losartan has been stopped since admission because of the hypotension as well as the Aldactone by the traffic engineer. Plan - Discharge Summary Discharge Rx Participant: No New Discharge Prescriptions: New Triamcinolone 0.1% Cream [Kenalog 0.1% Cream] 1 applic TOPICAL QID PRN each PRN Reason: Itching Metoprolol Tartrate [Lopressor] 12.5 mg PO BID tab Flecainide [Tambocor] 75 mg PO Q12HR #60 tab Continue Atorvastatin [Lipitor] 10 mg PO HS Apixaban [Eliquis] 5 mg PO BID Discontinued Spironolactone 50 mg PO DAILY Flecainide [Tambocor] 50 mg PO Q12HR Metoprolol Tartrate [Lopressor] 12.5 mg PO HS Losartan [Cozaar] 75 mg PO DAILY Discharge Medication List Apixaban [Eliquis] 5 mg PO BID 04/01/21 [History] Atorvastatin [Lipitor] 10 mg PO HS 04/01/21 [History] Flecainide [Tambocor] 75 mg PO Q12HR #60 tab 07/25/24 [Rx] Metoprolol Tartrate [Lopressor] 12.5 mg PO BID tab 07/25/24 [Rx] Triamcinolone 0.1% Cream [Kenalog 0.1% Cream] 1 applic TOPICAL QID PRN each 07/25/24 [Rx] Follow up Appointment(s)/Referral(s): Trav Stern MD [Primary Care Provider] - 1 Week Gigi Easley MD [STAFF PHYSICIAN] - 1 Week Discharge Disposition: HOME SELF-CARE
== END 2024-07-25 16:50 | disposition home or self-care (01) ==
LOC: EC 11:50 → 6NMEDSUR 16:10
PROVIDERS: ADMIT Internal Medicine; ATTEND Internal Medicine
DX: I48.19 Other persistent atrial fibrillation (principal); I48.3 Typical atrial flutter; I47.19 Other supraventricular tachycardia; I49.5 Sick sinus syndrome; I34.0 Nonrheumatic mitral (valve) insufficiency; E66.9 Obesity, unspecified; E78.5 Hyperlipidemia, unspecified; I10 Essential (primary) hypertension; L29.9 Pruritus, unspecified; N17.9 Acute kidney failure, unspecified; G47.30 Sleep apnea, unspecified; M19.90 Unspecified osteoarthritis, unspecified site; Z79.01 Long term (current) use of anticoagulants; Z79.899 Other long term (current) drug therapy; Z88.5 Allergy status to narcotic agent
CPT/HCPCS: 96366 ×3; 96367; 96365; 96375; 99291; 36415; 94760; 93005; 93306; 92960; 85379; 84439; 84481; 83880; 80053 ×2; 80048 ×2; 83735 ×2; 84443; 84484; 85025 ×3; 85610; 85730; 81001; 71046; G0378 ×4; J2405; J2003; Q9957; J2704; J2919

== ENCOUNTER → 2024-08-03 | Outpatient (CLI) | payer MEDICARE ==
[2024-08-03 14:45] LABS: Basophils # (A) 0.05 X 10*3/uL (0.00-0.10); Basophils % (A) 0.5 %; Eosinophils # (A) 0.23 X 10*3/uL (0.04-0.35); Eosinophils % (A) 2.1 %; HCT 37.2 % (37.2-46.3); HGB 11.9 g/dL (12.0-15.0); Lymphocytes # (A) 2.38 X 10*3/uL (0.90-5.00); Lymphocytes % (A) 21.8 %; MCH 33.1 pg (27.0-32.0); MCV 103.6 FL (80.0-97.0); Mean Platelet Volume 11.6 FL (9.5-12.2); Monocytes # (A) 1.05 X 10*3/uL (0.20-1.00); Monocytes % (A) 9.6 %; NRBC Per 100 WBC 0 X 10*3/uL (0.00-0.01); Neutrophils # (A) 7.16 X 10*3/uL (1.80-7.70); Neutrophils % (A) 65.5 %; Platelet Count 255 X 10*3/uL (140-440); RBC 3.59 X 10*6/uL (4.10-5.20); RDW 13.7 % (11.5-14.5); WBC 10.93 X 10*3/uL (4.50-10.00)
[2024-08-03 14:51] LABS: ALT 21 U/L (8-44); AST 14 U/L (13-35); Albumin 4.1 g/dL (3.8-4.9); Albumin/Globulin Ratio 2.05 Ratio (1.60-3.17); Alkaline Phosphatase 82 U/L (41-126); BUN/Creat Ratio 15.73 Ratio (12.00-20.00); Blood Urea Nitrogen 17.3 mg/dL (9.0-27.0); Carbon Dioxide 26.2 mmol/L (21.6-31.8); Chloride 105 mmol/L (96-109); Glucose 92 mg/dL (70-110); Magnesium 2.2 mg/dL (1.5-2.4); Potassium 4.2 mmol/L (3.5-5.5); Sodium 143 mmol/L (135-145); Total Bilirubin 0.8 mg/dL (0.3-1.2); Total Protein 6.1 g/dL (6.2-8.2)
[2024-08-03 15:27] LABS: Appearance,Urine Clear (Clear); Bilirubin,Urine Negative (Negative); Blood,Urine Negative (Negative); Color,Urine Yellow (Yellow); Ketones,Urine Negative (Negative); Nitrite,Urine Negative (Negative); Specific Gravity,Urine 1.013 (1.001-1.030)
[2024-08-03 19:03] LABS: Microalbumin Creatinine Ratio <11 mg/g Cr (0-30)
== END | disposition home or self-care (01) ==
LOC: LABWHC1 10:30
PROVIDERS: ATTEND Internal Medicine
DX: N18.30 Chronic kidney disease, stage 3 unspecified (principal)
CPT/HCPCS: 36415; 80053; 81003; 82043; 82570; 83735; 84100; 85025

== ENCOUNTER → 2024-08-18 | Outpatient (CLI) | payer MEDICARE ==
[2024-08-18 15:17] LABS: HCT 41.3 % (37.2-46.3); MCH 32.2 pg (27.0-32.0); MCHC 31.5 g/dL (32.0-37.0); MCV 102.2 FL (80.0-97.0); Mean Platelet Volume 11.1 FL (9.5-12.2); NRBC Per 100 WBC 0 X 10*3/uL (0.00-0.01); Platelet Count 304 X 10*3/uL (140-440); RBC 4.04 X 10*6/uL (4.10-5.20); RDW 13.4 % (11.5-14.5); WBC 5.93 X 10*3/uL (4.50-10.00)
[2024-08-18 16:09] LABS: Blood Urea Nitrogen 14.8 mg/dL (9.0-27.0); Carbon Dioxide 22.4 mmol/L (21.6-31.8); Chloride 104 mmol/L (96-109); Potassium 4.2 mmol/L (3.5-5.5); Sodium 138 mmol/L (135-145)
== END | disposition home or self-care (01) ==
LOC: LABPAT 08:46
PROVIDERS: ATTEND Internal Medicine Clinical Cardiac Electrophysiology
DX: Z01.812 Encounter for preprocedural laboratory examination (principal); I48.0 Paroxysmal atrial fibrillation
CPT/HCPCS: 80051; 82565; 84520; 85027

== ENCOUNTER 2024-08-28 10:42 | Day surgery (SDC) | payer MEDICARE ==
[2024-08-24 09:10] VITALS: BMI 36.5
[2024-08-28] MEDS: SODIUM CHLORIDE 0.9% 1,000 ML IV SCH (11:25)
[2024-08-28] MEDS: IV FLUID CONTINUATION 1,000 ML IV ONE (11:25)
[2024-08-28] MEDS: ONDANSETRON 4 MG/2 ML VIAL IVP STA (11:45)
[2024-08-28] MEDS: DEXAMETHASONE SOD PHOSPHATE 10 MG/ML 1 ML VIAL IVP STA (11:52)
[2024-08-28] MEDS ORDERED: LIDOCAINE 4% LTA KIT (4 ML) TOPICAL ONE (12:08)
[2024-08-28] MEDS ORDERED: LIDOCAINE 1% INJ 10MG/ML (20 ML MDV) ONE (12:08)
[2024-08-28] MEDS ORDERED: diphenhydrAMINE 50 MG/ML 1 ML VIAL ONE (12:08)
[2024-08-28] MEDS ORDERED: PROPOFOL 10 MG/ML 20 ML VIAL IV ONE (12:08)
[2024-08-28] MEDS ORDERED: ISOPROTERENOL 250 MCG/1.25 ML SYR IV ONE (12:08)
[2024-08-28] MEDS ORDERED: PHENYLEPHRINE 10 MG/ML VIAL ONE (12:08)
[2024-08-28] MEDS ORDERED: ePHEDrine 50 MG/ML 1 ML VIAL ONE (12:08)
[2024-08-28] MEDS ORDERED: HEPARIN SODIUM,PORCINE 5,000 UNIT/ML 1 ML VIAL ONE (12:08)
[2024-08-28] MEDS ORDERED: MIDAZOLAM 2 MG/2 ML VIAL ONE (12:08)
[2024-08-28] MEDS ORDERED: SUCCINYLCHOLINE CHLORIDE 200 MG/10 ML VIAL IV ONE (12:08)
[2024-08-28] MEDS ORDERED: HEPARIN SODIUM,PORCINE 10,000 UNIT/ML 1 ML VIAL ONE (12:08)
[2024-08-28] MEDS: HEPARIN SOD,PORK IN 0.45% NACL 25,000 UNIT in 0.45% NACL 1 250ML.BAG IV ONE (13:00)
[2024-08-28] MEDS: HEPARIN SODIUM,PORCINE (1 ML) 2,500 UNIT in SODIUM CHLORIDE 0.9% 250 ML IRRIGATION ONE (13:01)
[2024-08-28] MEDS: HEPARIN SODIUM,PORCINE 10,000 UNIT in SODIUM CHLORIDE 0.9% 1,000 ML IRRIGATION ONE (13:02)
[2024-08-28] MEDS: LIDOCAINE 1% INJ 10MG/ML (20 ML MDV) SQ ONE (13:15)
[2024-08-28] MEDS: ROPIVACAINE 5 MG/ML 30 ML VIAL MISCELLANE ONE (13:17)
[2024-08-28] MEDS: HEPARIN SODIUM (1,000 UNIT/ML) 1,000 UNIT in SODIUM CHLORIDE 0.9% 1,000 ML IRRIGATION ONE (14:00)
[2024-08-28] MEDS: IOPAMIDOL-370 100ML BTL INJ ONE (15:00)
[2024-08-28] MEDS: LACTATED RINGERS 1,000 ML IV ONE (15:39)
[2024-08-28] MEDS ORDERED: ACETAMINOPHEN TAB 325 MG TAB PO PRN (16:27)
--- NOTE | 2024-08-28 16:38 | P.HPCAR ---
History of Present Illness This is Dr. Easley dictating an H/P on this patient The patient was interviewed and examined IMPRESSION / ASSESSMENT: Atrial tachycardia, persistent with upright atrial signals in the inferior leads Very symptomatic requiring electrical cardioversion Intolerant of average doses of flecainide but cannot take beta-blockers Past history of PVI in 2020 Hypertension Underlying sick sinus syndrome PLAN: Assess and ablate pulmonary veins, EP study/linear ablation of the left atrium Continue Eliquis Reduce the dose of flecainide thereafter HPI Patient has not had any further episodes of palpitations after her cardioversion. She was extremely symptomatic with the atrial tachycardia with RVR She was started on flecainide at a higher dose but no beta-aamir given since she is completely intolerant of beta-blockers and has underlying sick sinus syndrome Denies any chest discomfort syncope dizziness or lightheadedness No cough phlegm expectoration ROS: No fever chills or rigors, no cough, phlegm or expectoration, no nausea, vomiting or diarrhea, no hematuria, dysuria, no musculoskeletal complaints, no strokes or seizures, no skin lesions. EXAMINATION: Pressure normal Heart sounds normal and regular No JVD No lower extremity edema Soft abdomen Normal heart sounds no murmurs or gallop Clear lungs REVIEW OF LABS, ECG & MEDICAL DATA Sodium 138 potassium 4.2 BUN 15 and creatinine 1.0 TSH 2.2 Physical Exam Vitals: Intake and Output 08/28/24 08/28/24 08/28/24 06:59 14:59 22:59 Intake Total 1173 500 Balance 1173 500 Intake: IV 1173 500 Past Medical History Past Medical History: Atrial Fibrillation, Hyperlipidemia, Hypertension, Osteoarthritis (OA), Sleep Apnea/CPAP/BIPAP Additional Past Medical History / Comment(s): ECtopic , abnormal stress test. Hx. of A-Fib., History of Any Multi-Drug Resistant Organisms: None Reported Past Surgical History: Cardiac Ablation, Section, Cholecystectomy, Heart Catheterization, Orthopedic Surgery Additional Past Surgical History / Comment(s): eye surgery, R knee scope, L Rotator cuff., LOOP MONITOR, COLONOSCOPY 2023(POLYPS) atrial ablation jun 2024, cardioversion X2, BILAT CATARACTS REMOVED WITH LENS IMPLANTS Past Anesthesia/Blood Transfusion Reactions: Postoperative Nausea & Vomiting (PONV) Additional Past Anesthesia/Blood Transfusion Reaction / Comment(s): Vomiting after anesthesia. Smoking Status: Never smoker - Past Family History Mother Family Medical History: No Reported History Physical Examination Intake and Output 08/28/24 08/28/24 08/28/24 06:59 14:59 22:59 Intake Total 1173 500 Balance 1173 500 Intake: IV 1173 500 Results Current Medications Generic Name Dose Route Start Last Admin Trade Name Freq PRN Reason Stop Dose Admin Acetaminophen 650 mg 08/28/24 16:27 Acetaminophen Tab 325 Mg Tab PO 09/27/24 16:26 Q6HR PRN Mild Pain (Scale 1 to 3) Apixaban 5 mg 08/28/24 21:00 Apixaban 5 Mg Tab PO 09/27/24 20:59 BID SCOTT Protocol Atorvastatin Calcium 10 mg 08/28/24 21:00 Atorvastatin 10 Mg Tab PO 09/27/24 20:59 HS SCOTT Flecainide Acetate 50 mg 08/28/24 21:00 Flecainide 50 Mg Tab PO 09/27/24 20:59 Q12HR SCOTT Sodium Chloride 1,000 mls @ 20 mls/hr 08/28/24 07:04 08/28/24 11:25 Saline 0.9% IV 09/27/24 07:03 20 mls/hr .Q24H SCOTT Administration Acetaminophen 1,000 mg/ IV 100 mls @ 400 mls/hr 08/28/24 16:27 Solution IVPB 08/28/24 16:41 ONCE ONE Losartan Potassium 75 mg 08/29/24 09:00 Losartan 50 Mg Tab PO 09/28/24 08:59 DAILY SCOTT Non-Formulary Medication 12.5 mg 08/29/24 09:00 Spironolactone [Spironolactone] PO 09/28/24 08:59 DAILY SCOTT Sodium Chloride 12 ml 08/28/24 16:27 Sodium Chloride 0.9% Flush 10 Ml Syringe IV 09/27/24 16:26 Q12HR PRN Line Flush Intake and Output 08/28/24 08/28/24 08/28/24 06:59 14:59 22:59 Intake Total 1173 500 Balance 1173 500 Intake: IV 1173 500
--- NOTE | 2024-08-28 16:46 | P.EPPROC ---
- EP Procedure Note Electrophysiology Procedure Note: PROCEDURE A. fib ablation with PVI, left atrial roof ablation, ablation of the anterior wall of the left atrium for management of mitral reentry DIAGNOSIS Atrial fibrillation/atrial tachycardia with RVR, symptomatic, Sick sinus syndrome RESULT No left atrial appendage mass seen on intracardiac echo, normal LV function, mildly thickened pericardium Successful A. fib ablation/pulmonary vein isolation of all veins using cryo- ablation Complete entrance block in all 4 veins confirmed Ablation of the left atrial roof with cryoablation Ablation for mitral reentry, ablation along anterior LA wall from the roofline to the mitral annulus No evidence for phrenic nerve injury Esophageal deflection YES Electrical cardioversion with a synchronized shock across the chest YES PROCEDURE DETAILS Written informed consent prior to procedure. Patient brought to the EP lab. General anesthesia given. Heparin administered. A city maintained above 300 seconds Both groins prepped and draped per protocol and venous sheaths placed. Esophagus intubated, circa catheter for temperature monitoring an endoscope for possible esophageal deflection. Phrenic nerve monitoring performed. Esophageal temperature monitoring performed. Esophageal deflection performed if circa catheter overlapping with the balloon or circa temperature less than 27.5°C Intracardiac echocardiography performed. Pericardium evaluated. Left atrial appendage evaluated. Left atrium evaluated along with pulmonary veins Transseptal catheterization performed under fluoroscopic guidance and intracardiac echo guidance Cryoablation sheath exchanged, balloon catheter along with achieve catheter placed in the left atrium. Pulmonary veins isolated in the following sequence: Left superior pulmonary vein followed by left inferior pulmonary vein, followed by right inferior pulmonary vein and lastly right superior pulmonary vein. Phrenic nerve stimulation along with capture thresholds within the SVC and right superior pulmonary vein to identify the phrenic nerve proximity to the cryo- balloon. Pulmonary veins isolated and confirmed with entrance and exit block. Phrenic nerve integrity confirmed at the end of the procedure Ablation of the left atrial roof performed with sequential lesions from the left superior to the right superior pulmonary veins. Ablation of the electrograms confirmed with voltage mapping Ablation of the anterior wall of left atrial from the left atrial roof line down to the anterior mitral annulus Diagnostic EP study was performed and atrial tachycardias were easily inducible. This atrial tachycardia had an eccentric activation consistent with mitral reentry Initial cycle length was 400 ms Once the left atrial roofline was complete, the cycle length sped up to 290 ms At that time blood pressure dropped and was unresponsive to pressors. LV function was normal. Pericardium was normal Therefore Electrical cardioversion performed with resumption of sinus rhythm and normalization of blood pressure almost immediately. Diagnostic catheters for the high right atrium, His bundle, coronary sinus placed. LA and RA pressures recorded LA pressure: 14/-5/4 Diagnostic EP study with coronary sinus pacing and recording Baseline measurements: TN interval 142 ms, QRS 136 ms, QT interval 434 ms anode sinus cycle length 945 ms Sinus node recovery times were 1155 ms and 1051 ms. Atrial tachycardia with eccentric CS activation was induced very easily Later once all ablations were complete burst stimulation and extrastimulation was performed both on and off high-dose Isopril AV node Wenckebach block 300 ms of Isopril No inducible sustained atrial tachycardia. Very brief short runs of nonsustained atrial tachycardia induced very occasionally Venous sheaths were removed and hemostasis assured with a closure device. Patient extubated and transferred to recovery PROCEDURES PERFORMED Diagnostic EP study CS pacing and recording Left and right transseptal catheterization Catheter the mapping of the tachycardia Intracardiac echocardiography Pulmonary vein isolation with transseptal and comprehensive EPS, [id number] Drug infusion, +[id number] Left atrial roof line, +[id number] Ablation of additional discrete arrhythmia focus, left atrium, +[id number] Electrical cardioversion with a synchronized shock across the chest [id number]
[2024-08-28] MEDS: ACETAMINOPHEN IV (For NPO) 1,000 MG in EMPTY BAG 1 BAG IVPB ONE (21:59)
[2024-08-28] MEDS: FLECAINIDE 50 MG TAB PO SCH (22:00)
[2024-08-28] MEDS: APIXABAN 5 MG TAB PO SCH (22:00)
[2024-08-28] MEDS: ATORVASTATIN 10 MG TAB PO SCH (22:00)
[2024-08-29 07:36] VITALS: BP 101/63; PULSE 68; RESP 17; TEMP 97.6
[2024-08-29] MEDS: SPIRONOLACTONE 25 MG TAB PO SCH (08:50)
[2024-08-29] MEDS: LOSARTAN 25 MG TAB PO SCH (08:51)
--- NOTE | 2024-08-29 09:37 | DS ---
DISCHARGE SUMMARY Candy had persistent atrial tachycardia and was very symptomatic. She underwent electrical cardioversion for this about a month back and the dose of flecainide was increased. However, she has underlying sick sinus syndrome and is intolerant of beta blockers. She was brought in for an EP study and ablation. She has had a PVI performed in 2020. We have not documented any further atrial fibrillation, simply atrial tachycardia with upright P-waves in the inferior leads. On the EP study, we were able to repeatedly and very easily induce an atrial tachycardia with eccentric coronary sinus activation. The cycle length initially was about 400 milliseconds. After ablation of the left atrial roof successfully, the atrial tachycardia was inducible, but at a faster rate with a cycle length of about 290 milliseconds. Subsequently, the mitral isthmus reentry ablation was performed along the anterior wall of the left atrium. Both with voltage mapping and high-output pacing, complete ablation was confirmed. Thereafter, the tachycardia was not re-inducible despite high-dose Isuprel. We attempted a detailed EP study thereafter to see if there was any inducible atrial flutter, but we could not induce any further arrhythmias. Her pulmonary veins are completely isolated. IMPRESSION: 1. Persistent atrial tachycardia, very symptomatic associated with significant hypotension. 2. Pulmonary vein isolation plus left atrial roof ablation plus mitral reentry ablation. PLAN: I reduced the dose of flecainide to 50 mg twice daily. Continue anticoagulation uninterrupted specifically for the next 2 months. Continue antihypertensive therapy. Follow up with Cardiology and follow up with me in about a week. Ambulating in the hallways and discharge home today later. MMODL / IJN: [id number] /
== END 2024-08-29 09:28 | disposition home or self-care (01) ==
LOC: CATHEP 10:42 → 6NMEDSUR 16:12 → CATHEP 08-29 09:28
PROVIDERS: ATTEND Internal Medicine Clinical Cardiac Electrophysiology
DX: I48.19 Other persistent atrial fibrillation (principal); I47.19 Other supraventricular tachycardia; I49.5 Sick sinus syndrome; I10 Essential (primary) hypertension; E78.5 Hyperlipidemia, unspecified; Z79.01 Long term (current) use of anticoagulants; Z88.5 Allergy status to narcotic agent
CPT/HCPCS: 93623; 93656; 93657; 86900; 86901; 86850; C1759; C1894; C1769; C1760 ×2; C1730 ×2; C1731; C1733; C1766; C1732; J1644 ×4; J1100; J2405; J2003; J2795; Q9967; 93005

== ENCOUNTER 2024-10-21 10:54 | Observation (INO) | payer MEDICARE ==
--- NOTE | 2024-10-21 11:18 | ED ---
General Adult HPI - General Chief complaint: Arrhythmia/Palpitations Stated complaint: Palpitations Time Seen by Provider: 10/21/24 11:07 Source: patient, RN notes reviewed Mode of arrival: wheelchair Limitations: no limitations - History of Present Illness Initial comments: Patient is a 69-year-old female presenting to the emergency department with alondra lund with palpitations. Onset of symptoms was 2 days ago. Symptoms are similar to previous A-fib. Patient did have ablation done in August. Patient has mild tightness in her chest. No dyspnea. - Related Data Home Medications Medication Instructions Recorded Confirmed Apixaban [Eliquis] 5 mg PO BID 04/01/21 08/28/24 Atorvastatin [Lipitor] 10 mg PO HS 04/01/21 08/28/24 Spironolactone 12.5 mg PO DAILY 08/24/24 08/28/24 Losartan Potassium 75 mg PO DAILY 08/28/24 08/28/24 Previous Rx's Medication Instructions Recorded Flecainide [Tambocor] 50 mg PO Q12HR #180 tablet 08/28/24 Allergies Allergy/AdvReac Type Severity Reaction Status Date / Time egg AdvReac Nausea & Verified 10/21/24 10:59 Vomiting Egg Derived AdvReac Nausea & Verified 10/21/24 10:59 Vomiting fentanyl AdvReac Vomiting Verified 10/21/24 10:59 hydrocodone [From Vicodin] AdvReac Nausea Verified 10/21/24 10:59 hydromorphone [From Dilaudid] AdvReac Nausea Verified 10/21/24 10:59 ketorolac [From Toradol] AdvReac Nausea & Verified 10/21/24 10:59 Vomiting Review of Systems ROS Statement: Those systems with pertinent positive or pertinent negative responses have been documented in the HPI. ROS Other: All systems not noted in ROS Statement are negative. Constitutional: Denies: fever Eyes: Denies: eye pain ENT: Denies: ear pain Respiratory: Denies: cough, dyspnea Cardiovascular: Reports: as per HPI, palpitations Endocrine: Denies: fatigue Gastrointestinal: Denies: abdominal pain Past Medical History Past Medical History: Atrial Fibrillation, Hyperlipidemia, Hypertension, Osteoarthritis (OA), Sleep Apnea/CPAP/BIPAP Additional Past Medical History / Comment(s): ECtopic , abnormal stress test. Hx. of A-Fib., History of Any Multi-Drug Resistant Organisms: None Reported Past Surgical History: Cardiac Ablation, Section, Cholecystectomy, Heart Catheterization, Orthopedic Surgery Additional Past Surgical History / Comment(s): eye surgery, R knee scope, L Rotator cuff., LOOP MONITOR, COLONOSCOPY 2023(POLYPS) atrial ablation jun 2024, cardioversion X2, BILAT CATARACTS REMOVED WITH LENS IMPLANTS Past Anesthesia/Blood Transfusion Reactions: Postoperative Nausea & Vomiting (PONV) Additional Past Anesthesia/Blood Transfusion Reaction / Comment(s): Vomiting after anesthesia. Past Psychological History: No Psychological Hx Reported Smoking Status: Never smoker - Past Family History Mother Family Medical History: No Reported History General Exam Limitations: no limitations General appearance: alert, in no apparent distress Head exam: Present: normocephalic Eye exam: Present: normal appearance Neck exam: Present: normal inspection Respiratory exam: Present: normal lung sounds bilaterally Cardiovascular Exam: Present: tachycardia Expanded Peripheral pulses: 2+: Radial (R), Radial (L), Dorsalis Pedis (R), Dorsalis Pedis (L) GI/Abdominal exam: Present: soft. Absent: tenderness Extremities exam: Present: normal inspection. Absent: pedal edema, calf tenderness Neurological exam: Present: alert Psychiatric exam: Present: normal affect, normal mood Skin exam: Present: normal color Course Vital Signs 10/21/24 10/21/24 10/21/24 10:56 10:59 11:19 Temperature 97.8 F Pulse Rate 168 H 158 H Pulse Rate [ 166 H Applied Research Director ] Respiratory 17 20 Rate Blood Pressure 113/84 113/88 O2 Sat by Pulse 97 98 Oximetry 10/21/24 11:42 Temperature Pulse Rate 92 Pulse Rate [ Applied Research Director ] Respiratory 20 Rate Blood Pressure 110/70 O2 Sat by Pulse 98 Oximetry EKG Findings - EKG Results: EKG: interpreted by ERMD (Narrow complex tachycardia with a rate of 160. Orchard indeterminate. Poor R wave progression.), normal ST/T EKG shows: tachycardia Medical Decision Making - Medical Decision Making Repeat EKG interpreted by myself shows sinus rhythm with a rate of 81. CA 123. QRS 104. QTc 437. Orchard indeterminate. Poor R wave progression. No acute ST change. Was pt. sent in by a medical professional or institution (, PA, NUMERICAL CONTROL OPERATOR, urgent care, hospital, or custodial...) When possible be specific @ -No Did you speak to anyone other than the patient for history (EMS, parent, family, police, friend...)? What history was obtained from this source @ -No Did you review nursing and triage notes (agree or disagree)? Why? @ -I reviewed and agree with nursing and triage notes Were old charts reviewed (outside hosp., previous admission, EMS record, old EKG, old radiological studies, urgent care reports/EKG's, custodial records)? Report findings @ -No old charts were reviewed Differential Diagnosis (chest pain, altered mental status, abdominal pain women, abdominal pain men, vaginal bleeding, weakness, fever, dyspnea, syncope, headache, dizziness, GI bleed, back pain, seizure, CVA, palpatations, mental health, musculoskeletal)? @ -Differential Palpitations Ventricular arrhythmias, atrial arrhythmias, myocardial infarction, anemia, thyrotoxicosis, electrolyte imbalance, hypokalemia, pulmonary embolism, pulmonary disease, drugs, alcohol, anxiety, stress.... This is not meant to be an all-inclusive list. EKG interpreted by me (3pts min.). @ -As above X-rays interpreted by me (1pt min.). @ -Chest x-ray shows no acute process, chronic atelectasis appearance CT interpreted by me (1pt min.). @ -None done U/S interpreted by me (1pt. min.). @ -None done What testing was considered but not performed or refused? (CT, X-rays, U/S, labs)? Why? @ -None What meds were considered but not given or refused? Why? @ -None Did you discuss the management of the patient with other professionals (professionals i.e. , PA, NUMERICAL CONTROL OPERATOR, lab, RT, psych nurse, director of social media marketing, crystal calibrator, teacher, navigation officer, family caseworker)? Give summary @ -Case was discussed with Dr. Javan Gray who will admit his patient Was smoking cessation discussed for >3mins.? @ -No Was critical care preformed (if so, how long)? @ -32 minutes critical care time Were there social determinants of health that impacted care today? How? (Homelessness, low income, unemployed, alcoholism, drug addiction, transportatio n, low edu. Level, literacy, decrease access to med. care, prison, rehab)? @ -No Was there de-escalation of care discussed even if they declined (Discuss DNR or withdrawal of care, Hospice)? DNR status @ -No What co-morbidities impacted this encounter? (DM, HTN, Smoking, COPD, CAD, Cancer, CVA, ARF, Chemo, Hep., AIDS, mental health diagnosis, sleep apnea, morbid obesity)? @ -History of A-fib Was patient admitted / discharged? Hospital course, mention meds given and route, prescriptions, significant lab abnormalities, going to OR and other pertinent info. @ -Patient presents with tacky dysrhythmia with palpitations. Symptoms resolved and patient converted to sinus rhythm rhythm, normal with Cardizem. Troponin is mildly elevated. Patient will be admitted for further cardiac testing and cardiac consultation. Patient reevaluated and updated. Patient feels much better. Admission orders written. Undiagnosed new problem with uncertain prognosis? @ -No Drug Therapy requiring intensive monitoring for toxicity (Heparin, Nitro, Insulin, Cardizem)? @ -No Were any procedures done? @ -No Diagnosis/symptom? @ -Atrial tachycardia Acute, or Chronic, or Acute on Chronic? @ -Acute Uncomplicated (without systemic symptoms) or Complicated (systemic symptoms)? @ -Default Side effects of treatment? @ -No Exacerbation, Progression, or Severe Exacerbation? @ -No Poses a threat to life or bodily function? How? (Chest pain, USA, IA, pneumonia, PE, COPD, DKA, ARF, appy, cholecystitis, CVA, Diverticulitis, Homicidal, Suicidal, threat to staff... and all critical care pts) @ -Threat to cardiac function - Lab Data Result diagrams: 10/21/24 11:15 10/21/24 11:15 Lab Results 10/21/24 10/21/24 10/21/24 Range/Units 11:15 11:15 11:15 WBC 11.24 H (4.50-10.00) 10*3/uL RBC 4.98 (4.10-5.20) 10*6/uL Hgb 16.6 H (12.0-15.0) g/dL Hct 47.6 H (37.2-46.3) % MCV 95.6 (80.0-97.0) fL MCH 33.3 H (27.0-32.0) pg MCHC 34.9 (32.0-37.0) g/dL Plt Count 303 (140-440) 10*3/uL MPV 11.0 (9.5-12.2) fL Immature Gran % (Auto) 0.4 % Neutrophils % 63.5 % Lymphocytes % 26.2 % Monocytes % 7.5 % Eosinophils % 2.0 % Basophils % 0.4 % Immature Gran # 0.05 H (0.00-0.04) 10*3/uL Neutrophils # 7.12 (1.80-7.70) 10*3/uL Lymphocytes # 2.95 (0.90-5.00) 10*3/uL Monocytes # 0.84 (0.20-1.00) 10*3/uL Eosinophils # 0.23 (0.04-0.35) 10*3/uL Basophils # 0.05 (0.00-0.10) 10*3/uL PT 10.6 (10.0-12.5) sec INR 1.0 (<1.2) APTT 23.6 (22.0-30.0) sec Sodium 135 L (137-145) mmol/L Potassium 4.5 (3.5-5.1) mmol/L Chloride 101 (98-107) mmol/L Carbon Dioxide 25 (22-30) mmol/L Anion Gap 9 mmol/L BUN 21 H (7-17) mg/dL Creatinine 1.06 H (0.52-1.04) mg/dL Est GFR (CKD-EPI)AfAm 62 (>60 ml/min/1.73 sqM) Est GFR (CKD-EPI)NonAf 54 (>60 ml/min/1.73 sqM) Glucose 99 (74-99) mg/dL Calcium 10.0 (8.4-10.2) mg/dL Magnesium 2.0 (1.6-2.3) mg/dL Total Bilirubin 1.2 (0.2-1.3) mg/dL AST 23 (14-36) U/L ALT 16 (4-34) U/L Alkaline Phosphatase 101 (38-126) U/L Troponin I (0.000-0.034) ng/mL Total Protein 7.1 (6.3-8.2) g/dL Albumin 4.4 (3.5-5.0) g/dL TSH 2.100 (0.465-4.680) mIU/L Free T4 1.74 (0.78-2.19) ng/dL 10/21/24 Range/Units 11:15 WBC (4.50-10.00) 10*3/uL RBC (4.10-5.20) 10*6/uL Hgb (12.0-15.0) g/dL Hct (37.2-46.3) % MCV (80.0-97.0) fL MCH (27.0-32.0) pg MCHC (32.0-37.0) g/dL Plt Count (140-440) 10*3/uL MPV (9.5-12.2) fL Immature Gran % (Auto) % Neutrophils % % Lymphocytes % % Monocytes % % Eosinophils % % Basophils % % Immature Gran # (0.00-0.04) 10*3/uL Neutrophils # (1.80-7.70) 10*3/uL Lymphocytes # (0.90-5.00) 10*3/uL Monocytes # (0.20-1.00) 10*3/uL Eosinophils # (0.04-0.35) 10*3/uL Basophils # (0.00-0.10) 10*3/uL PT (10.0-12.5) sec INR (<1.2) APTT (22.0-30.0) sec Sodium (137-145) mmol/L Potassium (3.5-5.1) mmol/L Chloride (98-107) mmol/L Carbon Dioxide (22-30) mmol/L Anion Gap mmol/L BUN (7-17) mg/dL Creatinine (0.52-1.04) mg/dL Est GFR (CKD-EPI)AfAm (>60 ml/min/1.73 sqM) Est GFR (CKD-EPI)NonAf (>60 ml/min/1.73 sqM) Glucose (74-99) mg/dL Calcium (8.4-10.2) mg/dL Magnesium (1.6-2.3) mg/dL Total Bilirubin (0.2-1.3) mg/dL AST (14-36) U/L ALT (4-34) U/L Alkaline Phosphatase (38-126) U/L Troponin I 0.077 H* (0.000-0.034) ng/mL Total Protein (6.3-8.2) g/dL Albumin (3.5-5.0) g/dL TSH (0.465-4.680) mIU/L Free T4 (0.78-2.19) ng/dL Disposition Clinical Impression: Atrial tachycardia Disposition: ADMITTED IP TO THIS HOSP Is patient prescribed a controlled substance at d/c from ED?: No Referrals: Trav Stern MD [Primary Care Provider] - 1-2 days Time of Disposition: 12:26
[2024-10-21 11:27] LABS: Basophils # (A) 0.05 10*3/uL (0.00-0.10); Basophils % (A) 0.4 %; Eosinophils # (A) 0.23 10*3/uL (0.04-0.35); HCT 47.6 % (37.2-46.3); HGB 16.6 g/dL (12.0-15.0); Lymphocytes # (A) 2.95 10*3/uL (0.90-5.00); Lymphocytes % (A) 26.2 %; MCH 33.3 pg (27.0-32.0); MCHC 34.9 g/dL (32.0-37.0); MCV 95.6 fL (80.0-97.0); Monocytes # (A) 0.84 10*3/uL (0.20-1.00); Monocytes % (A) 7.5 %; Neutrophils # (A) 7.12 10*3/uL (1.80-7.70); Neutrophils % (A) 63.5 %; Platelet Count 303 10*3/uL (140-440); RBC 4.98 10*6/uL (4.10-5.20); RDW 12.2 % (11.5-14.5); WBC 11.24 10*3/uL (4.50-10.00)
[2024-10-21] MEDS: DILTIAZEM 125 MG in DEXTROSE 5% IN WATER 100 ML IV SCH (11:35)
[2024-10-21] MEDS: DILTIAZEM 5 MG/ML 5 ML VIAL IVP STA (11:36)
[2024-10-21 11:52] LABS: ALT 16 U/L (4-34); AST 23 U/L (14-36); African American GFR (CKD) 62 (>60 ml/min/1.73 sqM); Albumin 4.4 g/dL (3.5-5.0); Alkaline Phosphatase 101 U/L (38-126); Anion Gap 9 mmol/L; Blood Urea Nitrogen 21 mg/dL (7-17); Carbon Dioxide 25 mmol/L (22-30); Chloride 101 mmol/L (98-107); Glucose 99 mg/dL (74-99); Non-African American GFR(CKD) 54 (>60 ml/min/1.73 sqM); Potassium 4.5 mmol/L (3.5-5.1); Sodium 135 mmol/L (137-145); Total Bilirubin 1.2 mg/dL (0.2-1.3); Total Protein 7.1 g/dL (6.3-8.2)
[2024-10-21 11:54] LABS: Partial Thromboplastin Time 23.6 sec (22.0-30.0); Prothrombin Time 10.6 sec (10.0-12.5)
[2024-10-21 12:08] LABS: T4, Free (Free Thyroxine) 1.74 ng/dL (0.78-2.19)
--- NOTE | 2024-10-21 12:14 | XR ---
EXAMINATION TYPE: XR chest 2V DATE OF EXAM: 10/21/2024 12:07 PM COMPARISON: Chest radiographs from 07/22/2024. CLINICAL INDICATION: Female, 69 years old with history of dysrhythmia; [facility] TECHNIQUE: XR chest 2V Frontal and lateral views of the chest. FINDINGS: Lungs/Pleura: There is no evidence of pleural effusion, focal consolidation, or pneumothorax. Pulmonary vascularity: Unremarkable. Heart/mediastinum: Cardiomediastinal silhouette is unremarkable. A loop recorder projects over the le ft thorax over the heart. Musculoskeletal: No acute osseous pathology. IMPRESSION: No acute cardiopulmonary disease/process. [facility], , 10/21/2024 12:11 PM
[2024-10-21] MEDS ORDERED: NALOXONE 0.4 MG/ML 1 ML VIAL IV PRN (12:27)
[2024-10-21] MEDS: LOSARTAN 25 MG TAB PO SCH (14:27)
[2024-10-21] MEDS: APIXABAN 5 MG TAB PO SCH (14:27)
[2024-10-21] MEDS: SPIRONOLACTONE 25 MG TAB PO SCH (14:27)
--- NOTE | 2024-10-21 14:29 | P.HPIM ---
History of Present Illness H&P Date: 10/21/24 Chief Complaint: Palpitation with the tachycardia with RVR atrial fibrillation symptomatic. Admission history and physical Dictation by Dr. Stern Date of service 10/21/2024 Location emergency room room #3. Chief complaint: Patient experienced started on night with the increased heart rate and irregularities with the atrial fibrillation out of rhythm and she started to feel it on night and continued until today where she could not wait anymore become severely symptomatic and came to the emergency room at [facility] and they did a EKG initial found to have heart rate 160 bpm and atrial tachycardia. History of present illness: 69 years old white female has history of 2 time ablation because of the atrial fibrillation with RVR and loss time was done in August 31 however she had also prior to that history of conversion with low joules in the hospital. She has also left infraclavicular loop for detection of her arrhythmias. And sh e also on medication at home for arrhythmia. Patient had recent history of neck pain and was radiating to the arm due to her discogenic disease of the neck cervical spine, she went to the outpatient clinic and they gave her Medrol Dosepak she finished the Medrol Dosepak last dose 4 mg 1 tablet only on morning and subsequently on evening she started to have these tachycardia and irregular heartbeat with the high speed of the heart rate and become uncomfortable she is not sure that if the steroid had any relation to her irregularities of her heart and these episode. In the ER laboratories done found also that she had mild elevation of troponin however she denied any chest pain and this it was her first troponin meanwhile her creatinine was mildly elevated with the underlying chronic kidney disease stage III however she has been seen by Dr. Shane nephrology and he told her that she is no evidence of chronic kidney disease. As she stated. Past medical history She has degenerative arthritis generalized and associated with also cervical discogenic disease. Hyperlipidemia, atrial fibrillation with previous ablation. And she is on apixaban anticoagulation. History of hypertension and hypertensive heart disease. And History of medication is flecainide 50 mg twice daily. Social history: 1 para 1 . And retired. Non-smoker nondrinker. Central nervous system negative and no blurred vision no headache and no falling attacks no weakness normal gait Cardiovascular palpitation with increased irregularities of heart rate becomes symptomatic. Respiratory no cough or expectoration and wheezing comfortably no clubbing or cyanosis GI no diarrhea, constipation and no abdominal pain no nausea no vomiting vomiting no hematochezia or hematemesis or melena. Genitourinary no dysuria or hematuria Psychiatry no depression or anxiety Musculoskeletal no muscle pain no kyphosis no kyphoscoliosis ambulatory Skin no skin rash no erythema. HEENT no nasal discharge no hearing deficit, head is normocephalic atraumatic. Hematology; no bleeding tendency, no petechiae, no bruises, no coagulopathy abnormalities. On exam: Head was normocephalic atraumatic, pupil was equal reactive conjunctiva was pink sclera was nonicteric extraocular muscle movement is intact, oropharynx natural teeth Neck was supple no JVD no thyromegaly no lymphadenopathy she had arthritis of the neck Chest clear to auscultation percussion no wheezes no rhonchi's no history of asthma Heart: Irregular irregularities and she had a loop recording for the arrhythmia in the infraclavicular area. pmi n the fifth intercostal space mildly outside midclavicular line, could not appreciate murmurs. Abdomen obese positive bowel sounds no tenderness in the 4 quadrant no constipation no diarrhea no abdominal pain Extremities no edema positive pulses. Psychiatry stable Neurologically stable no lateralizing sign and normal ambulation. Assessment: 1. Symptomatic atrial fibrillation with RVR. 2. Failure of flecainide to control the heart rate episode of atrial tachycardia 3. May need evaluation of the loop recorder which is implanted in the left infraclavicular 4. Mild elevation of troponin 0.077. 5. Normal thyroid function. 6. Mild elevation of creatinine 1.06, BUN 21 and EGFR for non- 54 suggestive of chronic kidney disease stage III however she stated that Dr. Shane told her that her kidney is fine. 7. She had mild leukocytosis, no symptoms of urinary tract infection however the stress of tachycardia and atrial fibrillation with RVR could be the possibil ity of the stress-induced mild leukocytosis we will be checking again tomorrow. Plan: Patient started in the ER on Cardizem drip Consultation with cardiology for evaluation and treatment. Monitoring the troponin. And monitoring blood pressure as well She will need definitely equipment monitor phototypesetting floor. Obtain tomorrow BMP and CBC and magnesium. Past Medical History Past Medical History: Atrial Fibrillation, Hyperlipidemia, Hypertension, Osteoarthritis (OA), Sleep Apnea/CPAP/BIPAP Additional Past Medical History / Comment(s): ECtopic , abnormal stress test. Hx. of A-Fib., History of Any Multi-Drug Resistant Organisms: None Reported Past Surgical History: Cardiac Ablation, Section, Cholecystectomy, Heart Catheterization, Orthopedic Surgery Additional Past Surgical History / Comment(s): eye surgery, R knee scope, L Rotator cuff., LOOP MONITOR, COLONOSCOPY 2023(POLYPS) atrial ablation jun 2024, cardioversion X2, BILAT CATARACTS REMOVED WITH LENS IMPLANTS Past Anesthesia/Blood Transfusion Reactions: Postoperative Nausea & Vomiting (PONV) Additional Past Anesthesia/Blood Transfusion Reaction / Comment(s): Vomiting after anesthesia. Past Psychological History: No Psychological Hx Reported Smoking Status: Never smoker - Past Family History Mother Family Medical History: No Reported History Medications and Allergies Home Medications Medication Instructions Recorded Confirmed Type Apixaban [Eliquis] 5 mg PO BID 04/01/21 08/28/24 History Atorvastatin [Lipitor] 10 mg PO HS 04/01/21 08/28/24 History Spironolactone 12.5 mg PO DAILY 08/24/24 08/28/24 History Flecainide [Tambocor] 50 mg PO Q12HR #180 tablet 08/28/24 Rx Losartan Potassium 75 mg PO DAILY 08/28/24 08/28/24 History Allergies Allergy/AdvReac Type Severity Reaction Status Date / Time egg AdvReac Nausea & Verified 10/21/24 10:59 Vomiting Egg Derived AdvReac Nausea & Verified 10/21/24 10:59 Vomiting fentanyl AdvReac Vomiting Verified 10/21/24 10:59 hydrocodone [From Vicodin] AdvReac Nausea Verified 10/21/24 10:59 hydromorphone [From Dilaudid] AdvReac Nausea Verified 10/21/24 10:59 ketorolac [From Toradol] AdvReac Nausea & Verified 10/21/24 10:59 Vomiting Physical Exam Vitals: Vital Signs Temp Pulse Pulse Resp BP Pulse Ox 10/21/24 11:42 92 20 110/70 98 10/21/24 11:19 166 H 10/21/24 10:59 158 H 20 113/88 98 10/21/24 10:56 97.8 F 168 H 17 113/84 97 Intake and Output 10/20/24 10/21/24 10/21/24 22:59 06:59 14:59 Other: Weight 108.862 kg Results CBC & Chem 7: 10/21/24 11:15 10/21/24 11:15 Labs: Abnormal Lab Results - Last 24 Hours (Table) 10/21/24 10/21/24 10/21/24 Range/Units 11:15 11:15 11:15 WBC 11.24 H (4.50-10.00) 10*3/uL Hgb 16.6 H (12.0-15.0) g/dL Hct 47.6 H (37.2-46.3) % MCH 33.3 H (27.0-32.0) pg Immature Gran # 0.05 H (0.00-0.04) 10*3/uL Sodium 135 L (137-145) mmol/L BUN 21 H (7-17) mg/dL Creatinine 1.06 H (0.52-1.04) mg/dL Troponin I 0.077 H* (0.000-0.034) ng/mL
[2024-10-21] MEDS: LOSARTAN 50 MG TAB PO SCH (14:44)
[2024-10-21] MEDS: FLECAINIDE 50 MG TAB PO SCH (20:42)
[2024-10-21] MEDS: ATORVASTATIN 10 MG TAB PO SCH (20:42)
[2024-10-22 07:35] LABS: Basophils # (A) 0.05 10*3/uL (0.00-0.10); Basophils % (A) 0.4 %; Eosinophils # (A) 0.16 10*3/uL (0.04-0.35); Eosinophils % (A) 1.4 %; HCT 43.2 % (37.2-46.3); HGB 14.6 g/dL (12.0-15.0); Lymphocytes # (A) 3.25 10*3/uL (0.90-5.00); Lymphocytes % (A) 28.2 %; MCH 32.5 pg (27.0-32.0); MCHC 33.8 g/dL (32.0-37.0); MCV 96.2 fL (80.0-97.0); Mean Platelet Volume 10.7 fL (9.5-12.2); Monocytes # (A) 0.92 10*3/uL (0.20-1.00); Neutrophils # (A) 7.11 10*3/uL (1.80-7.70); Neutrophils % (A) 61.7 %; Platelet Count 285 10*3/uL (140-440); RBC 4.49 10*6/uL (4.10-5.20); RDW 12.5 % (11.5-14.5); WBC 11.53 10*3/uL (4.50-10.00)
[2024-10-22 07:50] LABS: African American GFR (CKD) 76 (>60 ml/min/1.73 sqM); Anion Gap 9 mmol/L; Blood Urea Nitrogen 22 mg/dL (7-17); Calcium 9.3 mg/dL (8.4-10.2); Carbon Dioxide 20 mmol/L (22-30); Chloride 104 mmol/L (98-107); Glucose 98 mg/dL (74-99); Non-African American GFR(CKD) 66 (>60 ml/min/1.73 sqM); Potassium 4.3 mmol/L (3.5-5.1); Sodium 133 mmol/L (137-145)
--- NOTE | 2024-10-22 09:18 | P.CRDCN ---
History of Present Illness History of present illness: HISTORY OF PRESENT ILLNESS: This is a 69-year-old female with a past medical history significant for atrial fibrillation, hyperlipidemia, hypertension, and previous A-fib ablation. Patient follows in the office with Dr. Easley. We have been asked to see the patient in consultation for atrial tachycardia. Patient examined at the bedside. Patient presented to the hospital with a chief complaint of palpitations. Patient was found to be in atrial tachycardia. Patient was placed on IV Cardizem and she converted to sinus mechanism. She is maintaining sinus mechanism this morning. Patient states that she has been having neck pain and was given a steroid pack by her PCP which she just finished on morning and her palpitations started evening. DIAGNOSTICS: - EKG reveals atrial tachycardia. Repeat EKG reveals sinus mechanism - Chest xray negative for acute process. - Laboratory data: WBC 11.53. Hemoglobin 14.6. Platelet count 285. Sodium 133. Potassium 4.3. BUN 22. Creatinine 0.89. Troponin 0.077. 0.064. 0.064. - Current home cardiac medications include Aldactone 12.5 mg daily, losartan 75 mg daily, flecainide 50 mg twice a day, Lipitor 10 mg at night, Eliquis 5 mg twice a day. - Most recent echocardiogram obtained in July 2024 revealed ejection fraction 55 to 60%, no obvious regional wall motion abnormalities, trace MR, mild pulmonary hypertension - Cardiac catheterization history: Unknown REVIEW OF SYSTEMS: At the time of my exam: CONSTITUTIONAL: Denies fever or chills. HEENT: Denies blurred vision, vision changes, or eye pain. Denies hemoptysis CARDIOVASCULAR: Denies chest pain. Denies orthopnea. Denies PND. Denies palpitations RESPIRATORY: Denies shortness of breath. GASTROINTESTINAL: Denies abdominal pain. Denies nausea or vomiting. HEMATOLOGIC: Denies bleeding disorders. GENITOURINARY: Denies any blood in urine. SKIN: Denies pruitis. Denies rash. PHYSICAL EXAM: VITAL SIGNS: Reviewed. GENERAL: Well-developed in no acute distress. HEENT: Head is normocephalic. Pupils are equal, round. Sclerae anicteric. Mucous membranes of the mouth are moist. Neck supple. No JVD or thyromegaly LUNGS: Respirations even and unlabored. Lungs essentially clear to auscultation bilaterally. HEART: Regular rate and rhythm. S1 and S2 heard. ABDOMEN: Soft. Nondistended. Nontender. EXTREMITIES: Normal range of motion. No clubbing or cyanosis. Peripheral pulses intact. No lower extremity edema NEUROLOGIC: Awake and alert. Oriented x 3. ASSESSMENT: Atrial tachycardia Elevated troponins, flat, likely type II [place] secondary to oxygen supply/demand mismatch Paroxysmal atrial fibrillation History of A-fib ablation, 08/2024 Hypertension Hyperlipidemia Obesity: BMI 36.4 PLAN: No need to repeat echocardiogram as this was performed in July 2024 Discontinue IV Cardizem Continue anticoagulation with Eliquis Continue flecainide 50 mg twice a day Add metoprolol succinate 25 mg daily Continue telemetry monitoring Further recommendations pending patient course Nurse practitioner note has been reviewed by physician. Signing provider agrees with the documented findings, assessment, and plan of care documented by AUTOMOBILE MECHANIC APPRENTICE as a scribe. Past Medical History Past Medical History: Atrial Fibrillation, Hyperlipidemia, Hypertension, Osteoarthritis (OA), Sleep Apnea/CPAP/BIPAP Additional Past Medical History / Comment(s): ECtopic , abnormal stress test. Hx. of A-Fib., History of Any Multi-Drug Resistant Organisms: None Reported Past Surgical History: Cardiac Ablation, Section, Cholecystectomy, Heart Catheterization, Orthopedic Surgery Additional Past Surgical History / Comment(s): eye surgery, R knee scope, L Rotator cuff., LOOP MONITOR, COLONOSCOPY 2023(POLYPS) atrial ablation jun 2024, cardioversion X2, BILAT CATARACTS REMOVED WITH LENS IMPLANTS Past Anesthesia/Blood Transfusion Reactions: Postoperative Nausea & Vomiting (PONV) Additional Past Anesthesia/Blood Transfusion Reaction / Comment(s): Vomiting after anesthesia. Past Psychological History: No Psychological Hx Reported Smoking Status: Never smoker Past Alcohol Use History: None Reported Past Drug Use History: None Reported - Past Family History Mother Family Medical History: No Reported History Medications and Allergies Home Medications Medication Instructions Recorded Confirmed Type Apixaban [Eliquis] 5 mg PO BID 04/01/21 10/21/24 History Atorvastatin [Lipitor] 10 mg PO HS 04/01/21 10/21/24 History Flecainide [Tambocor] 50 mg PO Q12HR #180 tablet 08/28/24 10/21/24 Rx Losartan Potassium 75 mg PO DAILY 08/28/24 10/21/24 History Spironolactone [Aldactone] 12.5 mg PO DAILY 10/21/24 10/21/24 History Allergies Allergy/AdvReac Type Severity Reaction Status Date / Time egg AdvReac Nausea & Verified 10/21/24 15:32 Vomiting Egg Derived AdvReac Nausea & Verified 10/21/24 15:32 Vomiting fentanyl AdvReac Vomiting Verified 10/21/24 15:32 hydrocodone [From Vicodin] AdvReac Nausea Verified 10/21/24 15:32 hydromorphone [From Dilaudid] AdvReac Nausea Verified 10/21/24 15:32 ketorolac [From Toradol] AdvReac Nausea & Verified 10/21/24 15:32 Vomiting Physical Exam Vitals: Vital Signs Temp Pulse Pulse Resp BP BP Pulse Ox 10/22/24 07:35 97.7 F 83 16 111/77 98 10/22/24 04:50 98.4 F 82 16 102/65 97 10/21/24 20:30 98.3 F 100 18 107/77 94 L 10/21/24 18:18 95 18 107/75 99 10/21/24 18:16 95 10/21/24 17:29 88 20 135/68 98 10/21/24 17:00 118 H 20 136/57 98 10/21/24 16:00 100 20 108/76 98 10/21/24 15:00 85 16 100/60 98 10/21/24 14:32 87 20 87/56 10/21/24 14:00 92 20 99/70 98 10/21/24 13:00 85 20 100/60 98 10/21/24 11:42 92 20 110/70 98 10/21/24 11:19 166 H 10/21/24 10:59 158 H 20 113/88 98 10/21/24 10:56 97.8 F 168 H 17 113/84 97 Intake and Output 10/21/24 10/22/24 10/22/24 22:59 06:59 14:59 Intake Total 100.5 Balance 100.5 Intake: Intake, IV Titration 100.5 Amount Diltiazem 125 mg In 100.5 Dextrose 5% in Water 100 ml @ 5 MG/HR 5 mls/hr IV .Q24H [facility] Rx#:[id number] Other: # Voids 2 # Bowel Movements 1 Weight 108.862 kg 108.6 kg Results 10/22/24 06:32 10/22/24 06:32 Cardiac Enzymes 10/21/24 10/21/24 10/21/24 Range/Units 11:15 11:15 14:50 AST 23 (14-36) U/L Troponin I 0.077 H* 0.064 H* (0.000-0.034) ng/mL 10/21/24 Range/Units 18:45 AST (14-36) U/L Troponin I 0.064 H* (0.000-0.034) ng/mL Coagulation 10/21/24 Range/Units 11:15 PT 10.6 (10.0-12.5) sec APTT 23.6 (22.0-30.0) sec CBC 10/21/24 10/22/24 Range/Units 11:15 06:32 WBC 11.24 H 11.53 H (4.50-10.00) 10*3/uL RBC 4.98 4.49 (4.10-5.20) 10*6/uL Hgb 16.6 H 14.6 (12.0-15.0) g/dL Hct 47.6 H 43.2 (37.2-46.3) % Plt Count 303 285 (140-440) 10*3/uL Comprehensive Metabolic Panel 10/21/24 10/22/24 Range/Units 11:15 06:32 Sodium 135 L 133 L (137-145) mmol/L Potassium 4.5 4.3 (3.5-5.1) mmol/L Chloride 101 104 (98-107) mmol/L Carbon Dioxide 25 20 L (22-30) mmol/L BUN 21 H 22 H (7-17) mg/dL Creatinine 1.06 H 0.89 (0.52-1.04) mg/dL Glucose 99 98 (74-99) mg/dL Calcium 10.0 9.3 (8.4-10.2) mg/dL AST 23 (14-36) U/L ALT 16 (4-34) U/L Alkaline Phosphatase 101 (38-126) U/L Total Protein 7.1 (6.3-8.2) g/dL Albumin 4.4 (3.5-5.0) g/dL Current Medications Generic Name Dose Route Start Last Admin Trade Name Freq PRN Reason Stop Dose Admin Apixaban 5 mg 10/21/24 13:45 10/22/24 07:46 Apixaban 5 Mg Tab PO 5 mg BID SCOTT Administration Protocol Atorvastatin Calcium 10 mg 10/21/24 21:00 10/21/24 20:42 Atorvastatin 10 Mg Tab PO 10 mg HS SCOTT Administration Flecainide Acetate 50 mg 10/21/24 21:00 10/22/24 07:46 Flecainide 50 Mg Tab PO 50 mg Q12HR SCOTT Administration Losartan Potassium 75 mg 10/21/24 14:00 10/21/24 14:29 Losartan 25 Mg Tab PO Not Given DAILY SCOTT Metoprolol Succinate 25 mg 10/22/24 09:00 Metoprolol Succinate (Er) 25 Mg Tab.Er.24h PO DAILY [facility] Naloxone HCl 0.2 mg 10/21/24 12:27 Naloxone 0.4 Mg/Ml 1 Ml Vial IV Q2M PRN Opioid Reversal Spironolactone 12.5 mg 10/21/24 13:45 10/22/24 07:46 Spironolactone 25 Mg Tab PO 12.5 mg DAILY SCOTT Administration Intake and Output 10/21/24 10/22/24 10/22/24 22:59 06:59 14:59 Intake Total 100.5 Balance 100.5 Intake: Intake, IV Titration 100.5 Amount Diltiazem 125 mg In 100.5 Dextrose 5% in Water 100 ml @ 5 MG/HR 5 mls/hr IV .Q24H [facility] Rx#:[id number] Other: # Voids 2 # Bowel Movements 1 Weight 108.862 kg 108.6 kg 10/22/24 06:32 10/22/24 06:32
[2024-10-22] MEDS: METOPROLOL SUCCINATE (ER) 25 MG TAB.ER.24H PO SCH (09:30)
--- NOTE | 2024-10-22 13:54 | P.PN ---
Subjective Progress Note Date: 10/22/24 Progress note Date of service 10/22/2024 Location 385 bed 1. Dictation by Dr. Stern. Patient seen today [id number] and discussed with her her current irregular heartbeat with increased tachycardia. She stated that anytime she goes to the bathroom or able to walk her heart rate peak of with the high speed in the 140 to 170/min. Otherwise No nausea no vomiting no shortness of breath. On reviewing of her laboratories Her hemoglobin dropped from 16.6-14.6 with the probable hydration with IV that has cardiac rhythm drip currently discontinued by Dr. Marshall and his around this morning. Platelet count 285 today. In regard of the chemistry: She had troponin high 0.770 0.0640. 064, her creatinine 0.89 with EGFR 66. Sodium was 135, now 133 Carbon dioxide 25 and now 20. No other laboratory abnormalities with normal thyroid function. And normal liver enzyme. On the exam: Patient is conscious alert oriented x 3 her daughter at bedside Head was normocephalic atraumatic and pupil was equal reactive conjunctiva was pink sclera was nonicteric extraocular muscle movement is intact, oropharynx is natural teeth Neck was supple no JVD no thyromegaly no lymphadenopathy trachea midline Chest clear to auscultation and percussion no wheezes no rhonchi's Heart irregular irregularities with chronic atrial fibrillation and she had atrial tachycardia. Abdomen is soft. Bowel sound no nausea no vomiting. Extremities no edema and positive pulses Neurologically no lateralizing sign and no neurodeficit. Psychiatry stable general condition. Assessment: Patient seen by Dr. Marshall cardiology today and dictated note by HARI Julio with the impression Atrial tachycardia, elevated troponin likely type II [place] secondary to oxygen supply and demand mismatch Paroxysmal atrial fibrillation A-fib ablation in 08/27/2024 Hypertension metoprolol succinate 25 mg daily with the history of allergy to metoprolol tartrate. 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 Hyper lipidemia Obesity. Plan: Cardiology plan is to repeat echocardiogram and discontinue the IV Cardene as and continue anticoagulation with Eliquis Continue flecainide 50 mg twice a day Currently her blood pressure drop to 102/65, and 105/73 Oxygen saturation is 97 Temperature 97.5 FL oral heart rate 109. For further investigation with the echo per cardiology Dr. Whitfield and the PA Waiting for Dr. Kaushal CEDILLO insert cutter for evaluation Continue monitoring with the stability of the patient. Objective - Vital Signs Vital signs: Vital Signs Temp 97.5 F L 10/22/24 12:20 Pulse 109 H 10/22/24 12:20 Resp 16 10/22/24 12:20 BP 105/73 10/22/24 12:20 Pulse Ox 97 10/22/24 12:20 FiO2 Intake & Output 10/21/24 10/22/24 10/22/24 18:59 06:59 18:59 Intake Total 170.5 Balance 170.5 Weight 108.862 kg 108.6 kg Intake: IV 10 Invasive Line 1 10 Intake, IV Titration 100.5 Amount Diltiazem 125 mg In 100.5 Dextrose 5% in Water 100 ml @ 5 MG/HR 5 mls/hr IV .Q24H [facility] Rx#:[id number] Oral 60 Other: # Voids 2 # Bowel Movements 1 - Labs CBC & Chem 7: 10/22/24 06:32 10/22/24 06:32 Labs: Abnormal Lab Results - Last 24 Hours (Table) 10/21/24 10/21/24 10/22/24 Range/Units 14:50 18:45 06:32 WBC 11.53 H (4.50-10.00) 10*3/uL MCH 32.5 H (27.0-32.0) pg Sodium (137-145) mmol/L Carbon Dioxide (22-30) mmol/L BUN (7-17) mg/dL Troponin I 0.064 H* 0.064 H* (0.000-0.034) ng/mL 10/22/24 Range/Units 06:32 WBC (4.50-10.00) 10*3/uL MCH (27.0-32.0) pg Sodium 133 L (137-145) mmol/L Carbon Dioxide 20 L (22-30) mmol/L BUN 22 H (7-17) mg/dL Troponin I (0.000-0.034) ng/mL
[2024-10-23] MEDS: DILTIAZEM ORAL 30 MG TAB PO SCH (09:06)
--- NOTE | 2024-10-23 11:45 | P.PN ---
Subjective Progress Note Date: 10/23/24 Progress note Date of service 10/23/[address] Stern Indication cardiac monitor floor 385 bed 1. Patient seen today [id number] and her daughter at bedside Patient stated that her currently the heart rate is controlled when she is in bed without movement and when she goes to the bathroom or walk her heart rate takeoffs to 140-160. I did advise the patient to use her pulse ox or the loop monitor recording when heart rate increased with her exercise Patient had allergy to metoprolol succinate to his itching. Patient seen by Dr. Whitfield representative today and he discontinued her metoprolol succinate and started her on cardiac exam tablet p.o. 3 times a day which she has been helping. No new complaint otherwise Dr. Marshall per the patient he will be doing echo cardiogram with the underlying persistent elevation of troponin Cardiology team stated in the PA note that the mismatch for supply and demand and myocardial infarction type II. On the examination: Patient is conscious alert oriented x 3 her daughter at bedside able to communicate freely No shortness of breath and no palpitation at the time of the exam Head was normocephalic atraumatic pupil was equal reactive conjunctiva was pink sclera was nonicteric and oropharynx negative natural teeth Neck was supple no JVD no thyromegaly no lymphadenopathy trachea midline. Chest is clear no wheezes no rhonchi's Heart in the rate of 80/min at the time of the exam however she stated that it pickup and increased rate with minimal exertion. Abdomen is soft obese positive bowel sounds no tenderness Extremities no edema and positive pulses Neurology no lateralizing sign Psychiatry: No anxiety Assessment Her blood pressure 105/73 with a heart rate 80/min however with irregularities Medication has been changed from beta-aamir to calcium channel aamir Patient monitored History of atrial fibrillation with RVR History of ablation of the S-A node in August, Obesity Hyperlipidemia Used to be hypertensive. Abnormal troponin x 3. Plan: Dr. Whitfield still working with her for her arrhythmias And medication has been adjusted Will continue cardiology planning and monitoring Will discharge home when the patient cleared by cardiology for discharge Objective - Vital Signs Vital signs: Vital Signs Temp 96.8 F L 10/22/24 23:50 Pulse 83 10/23/24 08:45 Resp 18 10/23/24 08:45 BP 108/73 10/23/24 08:45 Pulse Ox 97 10/23/24 08:45 FiO2 Intake & Output 10/22/24 10/23/24 10/23/24 18:59 06:59 18:59 Intake Total 357.5 10 118 Balance 357.5 10 118 Weight 108.6 kg Intake: IV 20 10 Invasive Line 1 20 10 Intake, IV Titration 100.5 Amount Diltiazem 125 mg In 100.5 Dextrose 5% in Water 100 ml @ 5 MG/HR 5 mls/hr IV .Q24H [facility] Rx#:[id number] Oral 237 118 Other: Voiding Method Toilet # Voids 2 1 - Labs CBC & Chem 7: 10/22/24 06:32 10/22/24 06:32
--- NOTE | 2024-10-23 13:10 | P.PN ---
Subjective Progress Note Date: 10/23/24 HISTORY OF PRESENT ILLNESS: This is a 69-year-old female with a past medical history significant for atrial fibrillation, hyperlipidemia, hypertension, and previous A-fib ablation. Patient follows in the office with Dr. Easley. We have been asked to see the patient in consultation for atrial tachycardia. Patient examined at the bedside. Patient presented to the hospital with a chief complaint of palpitations. Patient was found to be in atrial tachycardia. Patient was placed on IV Cardizem and she converted to sinus mechanism. She is maintaining sinus mechanism this morning. Patient states that she has been having neck pain and was given a steroid pack by her PCP which she just finished on morning and her palpitations started evening. DIAGNOSTICS: - EKG reveals atrial tachycardia. Repeat EKG reveals sinus mechanism - Chest xray negative for acute process. - Laboratory data: WBC 11.53. Hemoglobin 14.6. Platelet count 285. Sodium 133. Potassium 4.3. BUN 22. Creatinine 0.89. Troponin 0.077. 0.064. 0.064. - Current home cardiac medications include Aldactone 12.5 mg daily, losartan 75 mg daily, flecainide 50 mg twice a day, Lipitor 10 mg at night, Eliquis 5 mg twice a day. - Most recent echocardiogram obtained in July 2024 revealed ejection fraction 55 to 60%, no obvious regional wall motion abnormalities, trace MR, mild pulmonary hypertension - Cardiac catheterization history: Unknown 10/23/2024 Patient seen and examined. Patient did Teresi metoprolol but developed itching following this and refused to take a dose this morning. We will discontinue. Patient states that she was told by the nursing staff that she was in atrial fibrillation but upon review it looks like sinus tachycardia and sinus throughout the night. Echocardiogram will be ordered. Blood pressure 108/73, heart rate 83, pulse ox 97% on room air. PHYSICAL EXAM: VITAL SIGNS: Reviewed. GENERAL: Well-developed in no acute distress. HEENT: Head is normocephalic. Pupils are equal, round. Sclerae anicteric. Mucous membranes of the mouth are moist. Neck supple. No JVD or thyromegaly LUNGS: Respirations even and unlabored. Lungs essentially clear to auscultation bilaterally. HEART: Regular rate and rhythm. S1 and S2 heard. ABDOMEN: Soft. Nondistended. Nontender. EXTREMITIES: Normal range of motion. No clubbing or cyanosis. Peripheral pulses intact. No lower extremity edema NEUROLOGIC: Awake and alert. Oriented x 3. ASSESSMENT: Atrial tachycardia Elevated troponins, flat, likely type II [place] secondary to oxygen supply/demand mismatch Paroxysmal atrial fibrillation History of A-fib ablation, 08/2024 Hypertension Hyperlipidemia Obesity: BMI 36.4 PLAN: Obtain 2D echocardiogram Discontinue metoprolol succinate due to allergic reaction Start patient on Cardizem 30 mg 3 times daily Continue anticoagulation with Eliquis Continue flecainide 50 mg twice a day Continue telemetry monitoring Further recommendations pending patient course Nurse practitioner note has been reviewed by physician. Signing provider agrees with the documented findings, assessment, and plan of care documented by FORM TAMPER as a scribe. Objective - Vital Signs Vital signs: Vital Signs Temp 96.8 F L 10/22/24 23:50 Pulse 72 10/23/24 04:10 Resp 14 10/23/24 04:10 BP 106/68 10/23/24 04:10 Pulse Ox 99 10/23/24 04:10 FiO2 Intake & Output 10/22/24 10/23/24 10/23/24 18:59 06:59 18:59 Intake Total 357.5 10 118 Balance 357.5 10 118 Weight 108.6 kg Intake: IV 20 10 Invasive Line 1 20 10 Intake, IV Titration 100.5 Amount Diltiazem 125 mg In 100.5 Dextrose 5% in Water 100 ml @ 5 MG/HR 5 mls/hr IV .Q24H [facility] Rx#:[id number] Oral 237 118 Other: Voiding Method Toilet # Voids 2 1 - Labs CBC & Chem 7: 10/22/24 06:32 10/22/24 06:32
[2024-10-24] MEDS: FLECAINIDE 50 MG TAB PO SCH (08:04)
--- NOTE | 2024-10-24 11:37 | P.PN ---
Subjective Progress Note Date: 10/24/24 HISTORY OF PRESENT ILLNESS: This is a 69-year-old female with a past medical history significant for atrial fibrillation, hyperlipidemia, hypertension, and previous A-fib ablation. Patient follows in the office with Dr. Easley. We have been asked to see the patient in consultation for atrial tachycardia. Patient examined at the bedside. Patient presented to the hospital with a chief complaint of palpitations. Patient was found to be in atrial tachycardia. Patient was placed on IV Cardizem and she converted to sinus mechanism. She is maintaining sinus mechanism this morning. Patient states that she has been having neck pain and was given a steroid pack by her PCP which she just finished on morning and her palpitations started evening. DIAGNOSTICS: - EKG reveals atrial tachycardia. Repeat EKG reveals sinus mechanism - Chest xray negative for acute process. - Laboratory data: WBC 11.53. Hemoglobin 14.6. Platelet count 285. Sodium 133. Potassium 4.3. BUN 22. Creatinine 0.89. Troponin 0.077. 0.064. 0.064. - Current home cardiac medications include Aldactone 12.5 mg daily, losartan 75 mg daily, flecainide 50 mg twice a day, Lipitor 10 mg at night, Eliquis 5 mg twice a day. - Most recent echocardiogram obtained in July 2024 revealed ejection fraction 55 to 60%, no obvious regional wall motion abnormalities, trace MR, mild pulmonary hypertension - Cardiac catheterization history: Unknown 10/23/2024 Patient seen and examined. Patient did Teresi metoprolol but developed itching following this and refused to take a dose this morning. We will discontinue. Patient states that she was told by the nursing staff that she was in atrial fibrillation but upon review it looks like sinus tachycardia and sinus throughout the night. Echocardiogram will be ordered. Blood pressure 108/73, heart rate 83, pulse ox 97% on room air. 10/24 Patient seen and examined. Patient went into atrial fibrillation during the night. She states she is able to feel palpitations. Yesterday, metoprolol was discontinued as patient had an allergic reaction with a rash. Patient was then started on Cardizem 30 mg 3 times daily and maintained on flecainide 50 mg twice daily. Patient did go into atrial fibrillation with heart rate in the low 100s, blood pressure 110/76, pulse ox 96% on room air. PHYSICAL EXAM: VITAL SIGNS: Reviewed. GENERAL: Well-developed in no acute distress. HEENT: Head is normocephalic. Pupils are equal, round. Sclerae anicteric. Mucous membranes of the mouth are moist. Neck supple. No JVD or thyromegaly LUNGS: Respirations even and unlabored. Lungs essentially clear to auscultation bilaterally. HEART: Regular rate and rhythm. S1 and S2 heard. ABDOMEN: Soft. Nondistended. Nontender. EXTREMITIES: Normal range of motion. No clubbing or cyanosis. Peripheral pulses intact. No lower extremity edema NEUROLOGIC: Awake and alert. Oriented x 3. ASSESSMENT: Atrial tachycardia Elevated troponins, flat, likely type II [place] secondary to oxygen supply/demand mismatch Paroxysmal atrial fibrillation History of A-fib ablation, 08/2024 Hypertension Hyperlipidemia Obesity: BMI 36.4 PLAN: Obtain 2D echocardiogram, limited study, report pending Discontinue metoprolol succinate due to allergic reaction Continue patient on Cardizem 30 mg 3 times daily Increase flecainide to 100 mg twice daily Continue anticoagulation with Eliquis Continue telemetry monitoring Further recommendations pending patient course Nurse practitioner note has been reviewed by physician. Signing provider agrees with the documented findings, assessment, and plan of care documented by LEATHER POLISHER as a scribe. Objective - Vital Signs Vital signs: Vital Signs Temp 97.4 F L 10/23/24 19:50 Pulse 78 10/24/24 04:25 Resp 16 10/24/24 04:25 BP 126/85 10/24/24 04:25 Pulse Ox 98 10/24/24 04:25 FiO2 Intake & Output 10/23/24 10/24/24 10/24/24 18:59 06:59 18:59 Intake Total 476 Balance 476 Weight 108.4 kg Intake: Oral 476 Other: Voiding Method Toilet Toilet # Voids 2 1 - Labs CBC & Chem 7: 10/22/24 06:32 10/22/24 06:32
--- NOTE | 2024-10-24 13:19 | CA ---
Transthoracic Echo Report Name: Candy Barton Age: 69 Gender: F : 1955 Exam Date: 10/23/2024 14:35 Exam Location: [facility] Ht (in): 68 Wt (lb): 239 Ordering Physician: Kellen Mejía Attending/Referring Phys: Supervisor [place] Caroline Aragon RDCS Procedure CPT: Indications: LVF, A tach Cardiac Hx: Limited, last echo 07/23/24 Technical Quality: Technically difficult study Contrast 1: Definity Total Dose (mL): 5 Contrast 2: Total Dose (mL): MEASUREMENTS (Male / Female) Normal Values 2D ECHO LV Diastolic Diameter PLAX 4.1 cm 4.2 - 5.9 / 3.9 - 5.3 cm LV Systolic Diameter PLAX 3.0 cm IVS Diastolic Thickness 0.9 cm 0.6 - 1.0 / 0.6 - 0.9 cm LVPW Diastolic Thickness 1.0 cm 0.6 - 1.0 / 0.6 - 0.9 cm LV Relative Wall Thickness 0.5 DOPPLER TR Peak Velocity 233.7 cm/s TR Peak Gradient 21.9 mmHg Right Atrial Pressure 5.0 mmHg Pulmonary Artery Systolic Pressu 26.9 mmHg Right Ventricular Systolic Press 26.9 mmHg FINDINGS Left Ventricle Left ventricular ejection fraction is estimated at 55 %. No obvious regional wall motion abnormalities. Left ventricular cavity size normal. Right Ventricle Right ventricle not well visualized. Right ventricular systolic pressure within normal limits. Right Atrium Left Atrium Mitral Valve Mitral valve thickened. Trace mitral regurgitation. Aortic Valve Aortic valve not well visualized. No aortic valve stenosis or regurgitation. Tricuspid Valve Structurally normal tricuspid valve. Trace to mild tricuspid regurgitation. Pulmonic Valve Pericardium No pericardial effusion. Aorta CONCLUSIONS Ejection fraction 55% Trace mitral regurgitation Trace to mild tricuspid regurgitation Previewed by: Dr. Geraldo Greco DO (Electronically Signed) Final Date: 24 October 2024 13:18
--- NOTE | 2024-10-25 00:05 | P.PN ---
Subjective Progress Note Date: 10/24/24 This dictation on the progress note Date of service 10/24/[address] Stern Location 385 bed 1, telemetry monitored bed. Patient seen and evaluated [id number] today Patient seen today by Dr. Marshall cardiology and he increased her medication for attempt to control the heart rate added to cardiac rhythm 30 mg 3 times daily. Patient admitted through the emergency room with the complaint of symptomatic palpitation and intermittent hypotension depend on the heart rate. Hospital course: Medication changes per Dr. Marshall anvil worker. Patient seen by the anvil worker and she had today echocardiogram however the result was not available at the time of the dictation. She has significant atrial tachycardia as well as atrial fibrillation and the main complaint is that when she do minimal exertion is going to the bathroom or walking in the room her heart rate speeds up and is still present at this time Patient otherwise did not have any anginal pain or chest pain and she is conscious alert oriented x 3 no acute respiratory distress. On the examination: The head was normocephalic atraumatic pupil was equal reactive and conjunctiva was pink and sclera was nonicteric and the extraocular muscle movement is intact. Her neck was supple no JVD no thyromegaly no lymphadenopathy trachea midline. And she is able to eat and swallow no other difficulties. Her chest is clear to auscultation percussion no evidence of congestive heart failure. However she had elevated troponin x 3 and we do not know if she had any other abnormalities as the laboratory was negative. Cardiology stated that this is the supply and demand with the current characterize it as myocardial infarction type II. The abdomen was obese positive bowel sounds no tenderness no constipation or diarrhea. Extremities no edema and positive pulses. He Neurologically stable and psychiatric stable Assessment cardiac arrhythmia. With the atrial tachycardia, atrial fibrillation intermittently with RVR., Hyperlipidemia, history of hypertension currently with the medication she is the hypertension is controlled and towards the hypotension due to the current medication patient found to have allergy to beta- aamir metoprolol tartrate OR SUCCINATE. PLAN PATIENT CONTINUE TO BE MONITORED IN BED. AND SHE HAS NO IV AND SHE IS ALLOWED TO MOVE IN THE ROOM AND TO NOTIFY NURSING WITH THE INCREASED TACHYCARDIA OR PALPITATION OR OTHER SYMPTOMATOLOGY RELATED OR HEART RATE INCREASE OR CHEST PAIN. WE WILL BE CONTINUING SEEING THE PATIENT AND MONITORING THE PATIENT UNTIL CARDIOLOGY MANAGEMENT AND CLEARED THE PATIENT FOR DISCHARGE. Objective - Vital Signs Vital signs: Vital Signs Temp 98.6 F 10/24/24 19:58 Pulse 110 H 10/24/24 19:58 Resp 18 10/24/24 19:58 BP 108/72 10/24/24 19:58 Pulse Ox 96 10/24/24 19:58 FiO2 Intake & Output 10/24/24 10/24/24 10/25/24 06:59 18:59 06:59 Intake Total 240 Balance 240 Weight 108.4 kg Intake: Oral 240 Other: Voiding Method Toilet Toilet # Voids 1 6 1 # Bowel Movements 0 - Labs CBC & Chem 7: 10/22/24 06:32 10/22/24 06:32
[2024-10-25 11:04] VITALS: TEMP 98.1
--- NOTE | 2024-10-25 12:26 | P.PN ---
Subjective Progress Note Date: 10/25/24 HISTORY OF PRESENT ILLNESS: This is a 69-year-old female with a past medical history significant for atrial fibrillation, hyperlipidemia, hypertension, and previous A-fib ablation. Patient follows in the office with Dr. Easley. We have been asked to see the patient in consultation for atrial tachycardia. Patient examined at the bedside. Patient presented to the hospital with a chief complaint of palpitations. Patient was found to be in atrial tachycardia. Patient was placed on IV Cardizem and she converted to sinus mechanism. She is maintaining sinus mechanism this morning. Patient states that she has been having neck pain and was given a steroid pack by her PCP which she just finished on morning and her palpitations started evening. DIAGNOSTICS: - EKG reveals atrial tachycardia. Repeat EKG reveals sinus mechanism - Chest xray negative for acute process. - Laboratory data: WBC 11.53. Hemoglobin 14.6. Platelet count 285. Sodium 133. Potassium 4.3. BUN 22. Creatinine 0.89. Troponin 0.077. 0.064. 0.064. - Current home cardiac medications include Aldactone 12.5 mg daily, losartan 75 mg daily, flecainide 50 mg twice a day, Lipitor 10 mg at night, Eliquis 5 mg twice a day. - Most recent echocardiogram obtained in July 2024 revealed ejection fraction 55 to 60%, no obvious regional wall motion abnormalities, trace MR, mild pulmonary hypertension - Cardiac catheterization history: Unknown 10/23/2024 Patient seen and examined. Patient did Teresi metoprolol but developed itching following this and refused to take a dose this morning. We will discontinue. Patient states that she was told by the nursing staff that she was in atrial fibrillation but upon review it looks like sinus tachycardia and sinus throughout the night. Echocardiogram will be ordered. Blood pressure 108/73, heart rate 83, pulse ox 97% on room air. 10/24 Patient seen and examined. Patient went into atrial fibrillation during the night. She states she is able to feel palpitations. Yesterday, metoprolol was discontinued as patient had an allergic reaction with a rash. Patient was then started on Cardizem 30 mg 3 times daily and maintained on flecainide 50 mg twice daily. Patient did go into atrial fibrillation with heart rate in the low 100s, blood pressure 110/76, pulse ox 96% on room air. 10/25/2024 Patient is having low heart rates of 40-60 at times and then will go into RVR 130s or higher.Currently rate is controlled. Echocardiogram results reviewed with the patient. Echocardiogram reveals EF 55%, trace mitral regurgitation, trace to mild tricuspid regurgitation. PHYSICAL EXAM: VITAL SIGNS: Reviewed. GENERAL: Well-developed in no acute distress. HEENT: Head is normocephalic. Pupils are equal, round. Sclerae anicteric. Mucous membranes of the mouth are moist. Neck supple. No JVD or thyromegaly LUNGS: Respirations even and unlabored. Lungs essentially clear to auscultation bilaterally. HEART: Regular rate and rhythm. S1 and S2 heard. ABDOMEN: Soft. Nondistended. Nontender. EXTREMITIES: Normal range of motion. No clubbing or cyanosis. Peripheral pulses intact. No lower extremity edema NEUROLOGIC: Awake and alert. Oriented x 3. ASSESSMENT: Atrial tachycardia Elevated troponins, flat, likely type II VA secondary to oxygen supply/demand mismatch Paroxysmal atrial fibrillation History of A-fib ablation, 08/2024 Hypertension Hyperlipidemia Obesity: BMI 36.4 PLAN: Discontinue metoprolol succinate due to allergic reaction Continue patient on Cardizem 30 mg 3 times daily Continue flecainide 100 mg twice daily Continue anticoagulation with Eliquis Patient is cleared from cardiology for discharge. Dr. Easley is making arrangements for ablation and patient will be contacted regarding date and time. Discussed with patient that when she goes into RVR at home, she may take one extra cardizem 30 mg. Nurse practitioner note has been reviewed by physician. Signing provider agrees with the documented findings, assessment, and plan of care documented by LIGHT RAIL TRANSIT OPERATOR as a scribe. Objective - Vital Signs Vital signs: Vital Signs Temp 97.6 F 10/25/24 04:45 Pulse 136 H 10/25/24 06:30 Resp 22 10/25/24 06:30 BP 127/80 10/25/24 04:45 Pulse Ox 97 10/25/24 06:30 FiO2 Intake & Output 10/24/24 10/25/24 10/25/24 18:59 06:59 18:59 Intake Total 240 Balance 240 Intake: Oral 240 Other: Voiding Method Toilet # Voids 6 1 # Bowel Movements 0 0 - Labs CBC & Chem 7: 10/22/24 06:32 10/22/24 06:32
[2024-10-25 12:53] VITALS: BP 106/69; PULSE 82; RESP 16
--- NOTE | 2024-10-25 14:05 | P.DS ---
Providers Date of admission: 10/21/24 12:27 Attending physician: Trav Stern Consults: 10/21/24 12:27 Consult Physician Urgent Consulting Provider: Gigi Easley Consult Reason/Comments: Atrial tachycardia Do you want consulting provider notified?: Yes Primary care physician: Trav Stern Dictation discharge summary Date of service 10/25/2024. Location 385 bed 1 media monitor floor. Final diagnosis: 1. Symptomatic atrial tachycardia 2. Recurrent of atrial fibrillation with RVR 3. History of ablation on August, by Dr. Easley. 4. History of hypertension currently normotensive/mildly hypotensive Secondary to current medication adjusted by cardiology with adding cardiac exam 30 mg 3 times daily and increase flecainide 100 mg twice daily 5. On apixaban for chronic anticoagulation. 6. Hyperlipidemia 7. Obesity. #8 mild dehydration resolved with the IV CardioSEAL recovered with normal creatinine and EGFR patient seen by Dr. Shane nephrology and he told her his okay Allergy: Metoprolol succinate, metoprolol tartrate, caused itching Eggs and egg derivative Fentanyl and hydrocodone hydromorphone and ketorolac. ER presentation 69 years old white female presented to the emergency room department with palpi tations for 2 days symptomatic with the history of ablation by Dr. Easley and atrial fibrillation chronically treated with anticoagulant. They consulted the cardiology and started her on cardiac exam drip. Subsequently patient admitted to telemetry monitored floor Hospital course: Patient seen by cardiology Dr. Marshall and his PA and dictation on the chart. In the ER found that elevated troponin with mild elevation of creatinine and decreased GFR, patient was mildly dehydrated which resolved and patient changed to different medication, with the admission diagnosis as mentioned above Patient seen by Dr. Marshall cardiology and HARI Foreman with the trial of different medication as metoprolol succinate, caused allergy with itching, previously she tried the metoprolol tartrate and also was caused itching Patient subsequently started on cardiac exam oral 30 mg 3 times daily and increased her flecainide to 100 mg twice a day. Patient found with the minimal exertion her heart rate takeoff to 141 70/min They advised her if her heart rate goes speedy and increased may have extra pill of cardiac 30 mg Cardiology cleared her up for discharge And we requested clearance on the discharge as well documentation. Patient currently is normotensive occasionally hypotensive. Vital signs today on discharge temperature 98.1 F oral, heart rate fluctuating 82 bpm regular however earlier this morning was 136. Blood pressure 106/69 with a mean 81 and oxygen saturation 99%. Patient is conscious alert oriented x 3 ambulatory HEENT: Head was normocephalic atraumatic pupil was equal reactive conjunctiva was pink sclera was nonicteric extraocular muscle movement is intact, Normal hearing, oropharynx natural teeth. Neck was supple no JVD no thyromegaly no lymphadenopathy trachea midline Chest clear to auscultation and percussion no wheezes no rhonchi's. Heart: Irregular irregularities with the chronic atrial fibrillation. And intermittent atrial tachycardia. Abdomen obese positive bowel sound No tenderness Extremities positive pulses bilateral and symmetrical no edema. Neurologically stable no lateralizing sign no neurodeficit. Psychiatry no depression or anxiety. Assessment: Patient stable general condition for discharge today Apparently cleared by Dr. Whitfield and his nurse practitioner for discharge She will be followed by Dr. Easley and he scheduled her in November for a second ablation. However she can see him in 1 week. He Patient advised to check her blood pressure and pulse at home Patient had previous appointment with Dr. Stern advised to keep it for follow- up. Med rec reviewed, cardiology adjusted her cardiac medicine flecainide 100 mg twice a day as well as added Cardizem 30 mg 3 times daily, I requested that cardiology to give her a prescription for that because they will be following her on the results of the cardiac arrhythmia management. Plan - Discharge Summary Discharge Rx Participant: No New Discharge Prescriptions: New Flecainide [Tambocor] 100 mg PO Q12HR tab Diltiazem Oral [Cardizem*] 30 mg PO TID tab Continue Atorvastatin [Lipitor] 10 mg PO HS Apixaban [Eliquis] 5 mg PO BID Spironolactone [Aldactone] 12.5 mg PO DAILY Losartan Potassium 75 mg PO DAILY Discontinued Flecainide [Tambocor] 50 mg PO Q12HR #180 tablet Discharge Medication List Apixaban [Eliquis] 5 mg PO BID 04/01/21 [History] Atorvastatin [Lipitor] 10 mg PO HS 04/01/21 [History] Losartan Potassium 75 mg PO DAILY 08/28/24 [History] Spironolactone [Aldactone] 12.5 mg PO DAILY 10/21/24 [History] Diltiazem Oral [Cardizem*] 30 mg PO TID tab 10/25/24 [Rx] Flecainide [Tambocor] 100 mg PO Q12HR tab 10/25/24 [Rx] Follow up Appointment(s)/Referral(s): Trav Stern MD [Primary Care Provider] - 1-2 days Gigi Easley MD [STAFF PHYSICIAN] - 1 Week
== END 2024-10-25 16:24 | disposition home or self-care (01) ==
LOC: EC 10:54 → 6NMEDSUR 12:27 → 3SCARD 16:02
PROVIDERS: ADMIT Internal Medicine; ATTEND Internal Medicine
DX: I47.19 Other supraventricular tachycardia (principal); R79.89 Other specified abnormal findings of blood chemistry; D72.829 Elevated white blood cell count, unspecified; E86.0 Dehydration; I48.0 Paroxysmal atrial fibrillation; E78.5 Hyperlipidemia, unspecified; G47.30 Sleep apnea, unspecified; I11.9 Hypertensive heart disease without heart failure; E66.9 Obesity, unspecified; Z68.36 Body mass index [BMI] 36.0-36.9, adult; Z79.01 Long term (current) use of anticoagulants; Z79.899 Other long term (current) drug therapy; Z88.5 Allergy status to narcotic agent; Z88.6 Allergy status to analgesic agent
CPT/HCPCS: 96376; 96374; 99291; 36415; 93005; 93308; 84439; 84481; 80053; 80048; 83735 ×2; 84443; 84484; 85025 ×2; 85610; 85730; 71046; G0378 ×5; Q9957

== ENCOUNTER → 2024-11-20 | Outpatient (CLI) | payer MEDICARE ==
--- NOTE | 2024-11-20 10:26 | US ---
EXAMINATION TYPE: US kidneys/renal and bladder DATE OF EXAM: 11/20/2024 COMPARISON: None CLINICAL INDICATION: Female, 69 years old with history of N18.31 CKD; TECHNIQUE: Grayscale imaging of the bilateral kidneys and urinary bladder: FINDINGS: EXAM MEASUREMENTS: Right Kidney: 10.0 x 4.0 x 4.3 cm Left Kidney: 9.6 x 4.9 x 4.2 cm Right Kidney: no hydronephrosis or masses seen Left Kidney: no hydronephrosis or masses seen Bladder: Nondistention limits its evaluation. IMPRESSION: No hydronephrosis. Underdistention of the bladder limits its evaluation. [facility], Workstation: [id number], 11/20/2024 10:24 AM
== END | disposition home or self-care (01) ==
LOC: RADUSWWP 09:13
PROVIDERS: ATTEND Internal Medicine
DX: N18.31 Chronic kidney disease, stage 3a (principal)
CPT/HCPCS: 76770